=== PATIENT | female | born 1980 | race Caucasian/White ===

== ENCOUNTER 2020-01-07 09:01 | Emergency (ER) | payer OTHER, SELFPAY ==
[2020-01-07 09:09] VITALS: BP 125/74; PULSE 107; RESP 17; TEMP 36.2; O2SAT 100
[2020-01-07 09:35] LABS: Basophils Percent Auto 0.2 % (0.2-1.2); Eosinophils Absolute Auto 0.1 K/mm3 (0-0.3); Eosinophils Percent Auto 0.7 % (0-4.4); Hematocrit 39.7 % (37.0-47.0); Immature Granulocyte Absolute 0.03 K/mm3 (0.00-0.031); Immature Granulocyte Percent A 0.3 % (0-0.5); Lymphocytes Absolute Auto 1.37 K/mm3 (0.9-3.2); Lymphocytes Percent Auto 14.9 % (18.3-44.2); Mean Corpuscular HGB Conc 35.3 g/dl (32-36); Mean Corpuscular Hemoglobin 32.1 pg (26-34); Mean Corpuscular Volume 91.1 fl (80-100); Mean Platelet Volume 9.2 fl (7.4-10.4); Monocytes Absolute Auto 0.4 K/mm3 (0.1-0.6); Monocytes Percent Auto 4.3 % (2.6-8.5); Neutrophils Absolute Auto 7.3 K/mm3 (1.3-6.7); Neutrophils Percent Auto 79.6 % (45.5-73.1); Platelet Count Result 262 k/mm3 (150-375); Red Blood Count 4.36 M/mm3 (4.2-5.4); White Blood Count 9.2 K/mm3 (4.5-10.0)
--- NOTE | 2020-01-07 09:36 | ED.GIBLEED ---
HPI - GI Bleed General Chief complaint: GI Bleed Stated complaint: rectal bleeding, 4 months Time Seen by Provider: 01/07/20 09:11 Source: patient Mode of arrival: ambulatory Limitations: no limitations History of Present Illness HPI Narrative: This is a 39 year old female about 14 weeks that presents to the ER for rectal bleeding since last night. Reports she has had two bowel movement since last night and each time she sees bright red blood in the toilet. Reports history of hemorrhoids. Reports intermittent nausea and vomiting for which she takes Zofran. Denies fever, vaginal bleeding or abdominal pain. Related Data Allergies Allergy/AdvReac Type Severity Reaction Status Date / Time No Known Allergies Allergy Unknown Verified 07/27/12 15:43 NKFA Allergy Unknown Uncoded 09/03/02 13:20 Review of Systems Review of Systems: Narrative: CONSTITUTIONAL: Denies fever GASTROINTESTINAL: Reports nausea and vomiting. Denies abdominal pain, or diarrhea. GENITOURINARY: Denies dysuria or hematuria. All systems reviewed & are unremarkable except as noted in HPI and below PMFSH Surgical History Surgical History (Updated 01/07/20 @ 09:41 by Cherri Velásquez PA-C) History of appendectomy History of Social History Social History (Updated 01/07/20 @ 09:40 by Cherri Velásquez PA-C) Smoking status: Current every day smoker Gender identity (if verbalized by the patient): Female Exam Narrative: Exam Narrative: GENERAL: Well-appearing, well-nourished, and in no acute distress. HEAD: Normocephalic, atraumatic. EYES: EOMI. CHEST: Clear to auscultation. No respiratory distress. No wheezes rales or rhonchi HEART: Regular rate and rhythm. No murmur heard. Normal peripheral pulses. ABDOMEN: Soft, nontender, nondistended, normal active bowel sounds. EXTREMITIES: Normal range of motion. No edema. SKIN: Warm, dry, no rash. NEURO: No focal deficits. Alert and oriented x3. PSYCH: Normal mood and affect RECTAL: No external hemorrhoids or fissures noted. Hemoccult positive Course Consultations Consultation #1: Spoke with Dr. Nelson about patient and work-up. She is to continue Colace daily and MiraLAX as needed. Patient will be given steroid suppository and GI follow-up as well Date: 01/07/20 Time: 11:26 Vital Signs Vital signs: Vital Signs Temperature 97.1 F L 01/07/20 09:09 Pulse Rate 107 H 01/07/20 09:09 Respiratory Rate 17 01/07/20 09:09 Blood Pressure 125/74 01/07/20 09:09 Pulse Oximetry 100 01/07/20 09:09 Temperature 97.1 F L 01/07/20 09:09 Pulse Rate 88 01/07/20 10:28 Respiratory Rate 17 01/07/20 09:09 Blood Pressure 109/80 01/07/20 10:28 Pulse Oximetry 100 01/07/20 09:09 MDM - GI Bleed MDM Narrative Medical decision making narrative: Patient presents to the emergency department for rectal bleeding. Had 2 bowel movements and saw bright red blood in the toilet. Reports longstanding history of hemorrhoids. She is 14 weeks . Denies any current abdominal pain or vaginal bleeding. No external hemorrhoids or fissures noted on exam, she was Hemoccult positive. She is not orthostatic. Hemoglobin is 14. No concerning changes on metabolic panel. UA without evidence of infection. heart tones 156. Patient and family updated on case findings. Spoke with Dr. Nelson about patient and work-up. Patient is stable and felt appropriate for further outpatient evaluation. She will be given GI as needed for follow-up as well. She was given warnings to return to the ER Lab Data Attestation: I reviewed the patient's lab results. Result diagrams: 01/07/20 09:24 01/07/20 09:24 Labs: Lab Results 01/07/20 01/07/20 01/07/20 Range/Units 09:21 09:24 09:24 WBC 9.2 (4.5-10.0) K/mm3 RBC 4.36 (4.2-5.4) M/mm3 Hgb 14.0 (12.0-15.0) g/dL Hct 39.7 (37.0-47.0) % MCV 91.1 (80-100) fl MCH 32.1 (26-34) pg MCHC 35.3
[2020-01-07 09:40] LABS: Add Urine Microscopic? NO; Appearance Urine Clear (Clear); Bacteria Urine Trace /hpf; Bilirubin Urine Negative (Negative); Blood Urine Negative (Negative); Color Urine Yellow (Yellow); Glucose Urine UA Negative (Negative); Ketones Urine Negative (Negative); Leukocyte Esterase Ur Negative LEU/UL (Negative); Mucus Urine Few /lpf; Nitrate Urine Negative (Negative); Protein Urine Negative (Negative); RBC Urine 0-2 /hpf (0-2); Squamous Epithelial Cell Urine Many /hpf (Few); Transitional Epi Cells Urine Rare /hpf (None Seen); Urobilinogen Urine Negative mg/dL (<2.0); WBC Urine 0-3 /hpf
[2020-01-07 09:45] LABS: Lipase 47 U/L (23-300)
[2020-01-07 09:45] LABS: Partial Thromboplastin Time 30.7 SECONDS (22.3-36.8)
[2020-01-07 09:51] LABS: Alanine Aminotransferase 15 U/L (4-35); Albumin Level 4.1 g/dL (3.5-5.1); Alkaline Phosphatase 63 U/L (38-126); Anion Gap 8 mmol/L (8-16); Aspartate Amino Transferase 24 U/L (14-36); Bilirubin,Total 0.5 mg/dL (0.2-1.3); Blood Urea Nitrogen 4 mg/dL (7-17); Calcium 9.2 mg/dL (8.4-10.2); Carbon Dioxide 27 mmol/L (22-30); Chloride 101 mmol/L (98-107); Estimated CRCL calculation 125 ml/min; Estimated Glomerular Filt Rate > 60; Glucose 81 mg/dL (65-105); Potassium 3.4 mmol/L (3.4-5.0); Sodium 136 mmol/L (137-145)
[2020-01-07 10:25] VITALS: BP 106/69; PULSE 80
[2020-01-07 10:27] VITALS: BP 105/76; PULSE 82
[2020-01-07 10:28] VITALS: BP 109/80; PULSE 88
[2020-01-07 11:41] VITALS: BP 104/75; PULSE 83; RESP 20; O2SAT 100
== END 2020-01-07 11:43 | disposition home or self-care (01) ==
PROVIDERS: Physician Assistant; Emergency Provider Emergency Medicine; PCP Obstetrics & Gynecology
DX: O99.612 Diseases of the digestive system complicating pregnancy, second trimester (principal); K62.5 Hemorrhage of anus and rectum; O99.332 Smoking (tobacco) complicating pregnancy, second trimester; F17.200 Nicotine dependence, unspecified, uncomplicated; Z3A.14 14 weeks gestation of pregnancy
CPT/HCPCS: 36415; 80053; 81003; 83690; 85025; 85730; 86850; 86900; 86901; 99283

== ENCOUNTER 2020-03-24 13:50 | Outpatient (RCR) | payer OTHER, SELFPAY ==
--- NOTE | 2020-03-24 14:56 | PTOPEVAL ---
Thank you for referring Destiny Worley to [facility].? The patient is scheduled to be seen for therapy? _2___x/week for 12 visits. Please review, sign, date and return this plan of care MARIAN. I agree with and certify that the following plan of care is medically necessary. Referring Physician Date Admitting Provider: Attending Provider: Jerod Benítez MD Referring Provider: *PT Outpatient Evaluation Start: 03/24/20 14:02 Freq: Status: Active Protocol: Document 03/24/20 14:02 ALEX (Rec: 03/24/20 14:55 [email or web address]) Therapy Assessment Status Assessment Status Assessment Status Evaluation Evaluation Information Problem Diagnosis low back pain with Onset 03/24/20 Subjective Information Pt. does not recall the onset Query Text:As Reported By Patient/ of her pain. She reports she Family is currently in her 6th month of . She reports that she had hx of back pain prior to her , however it has intensified as of recently. she describes her pain going across the area of the lumbar spine. Pt. reports that she cannot stand for any significant time and states that her goal is to ease her back pain. Prior Level of Function Comments Additional Prior Level of Function Pt. reports that she works at [employer] a [employer] and has trouble standing long enough to perform her job. She reports that she is currently off work , but is hopeful to return MARIAN. Pain Assessment Pain Scale Pain Scale Used Numeric (1 - 10) Self Report Pain Assessment Lower Back Reported Pain Level 8 Pain Description Aching,Burning,Sharp Pain Frequency Continuous Pain Aggravating Factors Bending,Exercise/Activity, Prolonged Position,Sitting, Walking,Weight Bearing/ Standing Pain Score Pain Score 8: Self Report Interventions Used Interventions Used By Clinicians Exercise,Manual Therapy Techniques Cervical and Lumbar ROM Lumbar ROM Lumbar Flexion Active Mid Shell Query Text:Hands to: Lumbar Extension (0-40) 5 Query Text:Active in Degrees Lumbar Lateral Flexion
--- NOTE | 2020-03-25 06:57 | PTOPEVAL ---
Thank you for referring Destiny Worley to [facility].? The patient is scheduled to be seen for therapy? __2__x/week for 12 visits. Please review, sign, date and return this plan of care MARIAN. I agree with and certify that the following plan of care is medically necessary. Referring Physician Date Admitting Provider: Attending Provider: Jerod Benítez MD Referring Provider: *PT Outpatient Evaluation Start: 03/24/20 14:02 Freq: Status: Active Protocol: Document 03/24/20 14:02 ALEX (Rec: 03/24/20 14:55 [email or web address]) Therapy Assessment Status Assessment Status Assessment Status Evaluation Evaluation Information Problem Diagnosis low back pain with Onset 03/23/20 Subjective Information Pt. does not recall the onset Query Text:As Reported By Patient/ of her pain. She reports she Family is currently in her 6th month of . She reports that she had hx of back pain prior to her , however it has intensified as of recently. she describes her pain going across the area of the lumbar spine. Pt. reports that she cannot stand for any significant time and states that her goal is to ease her back pain. Prior Level of Function Comments Additional Prior Level of Function Pt. reports that she works at [employer] and has trouble standing long enough to perform her job. She reports that she is currently off work , but is hopeful to return MARIAN. Pain Assessment Pain Scale Pain Scale Used Numeric (1 - 10) Self Report Pain Assessment Lower Back Reported Pain Level 8 Pain Description Aching,Burning,Sharp Pain Frequency Continuous Pain Aggravating Factors Bending,Exercise/Activity, Prolonged Position,Sitting, Walking,Weight Bearing/ Standing Pain Score Pain Score 8: Self Report Interventions Used Interventions Used By Clinicians Exercise,Manual Therapy Techniques Cervical and Lumbar ROM Lumbar ROM Lumbar Flexion Active Mid Shell Query Text:Hands to: Lumbar Extension (0-40) 5 Query Text:Active in Degrees Lumbar Lateral Flexion
--- NOTE | 2020-06-15 17:13 | PCPTNOTE ---
Pt. attended 1 treatment session on 03/24/20. She has failed to return to the clinic and will be discharged from our care. Carlos Cunningham, MPT
== END 2020-03-24 14:50 | disposition home or self-care (01) ==
LOC: CHSPT 13:50
PROVIDERS: Visit Provider Obstetrics & Gynecology
DX: O26.899 Other specified pregnancy related conditions, unspecified trimester (principal); G89.29 Other chronic pain; M54.5 Low back pain
CPT/HCPCS: 97110; 97161

== ENCOUNTER 2020-05-05 08:13 | Outpatient (CLI) | payer OTHER, SELFPAY ==
[2020-05-05 09:51] LABS: Hematocrit 34.8 % (37.0-47.0); Hemoglobin 11.9 g/dL (12.0-15.0)
[2020-05-05 10:31] LABS: Glucose 1 Hour PP 50gm Dose 111 mg/dL
[2020-05-05 11:15] LABS: HIV 1/2 Ab P24 Ag 1.23
[2020-05-05 13:45] LABS: HIV 1/2 Ab P24 Ag Result Negative (Negative)
[2020-05-05 13:46] LABS: HIVc Retest 1 0.16; HIVc Retest 2 0.17
== END 2020-05-05 08:14 | disposition home or self-care (01) ==
PROVIDERS: Visit Provider Obstetrics & Gynecology
DX: Z34.92 Encounter for supervision of normal pregnancy, unspecified, second trimester (principal); Z3A.00 Weeks of gestation of pregnancy not specified
CPT/HCPCS: 36415; 82947; 85014; 85018; 86703; G0432

== ENCOUNTER 2020-05-25 08:31 | Observation (INO) | payer OTHER, SELFPAY ==
--- NOTE | 2020-05-25 08:29 | PC.NURSE ---
Spoke with Joana @ OB department - pt heading to OB via W/C
[2020-05-25 08:31] VITALS: RESP 16
[2020-05-25 09:00] VITALS: BP 92/60; PULSE 105; BMI 30.8
[2020-05-25 09:15] VITALS: BP 91/61; PULSE 93
--- NOTE | 2020-05-25 09:39 | OBADM ---
This patient, Destiny Worley, admitted to the OB room Labor/Delivery/Recovery 120 for observation. Patient/family oriented to hospital policies and general routines including ID bracelet, bed and alarms, visiting hours, pain management, procedures, bathroom and other care routines, personal items, smoking policy, room service/diet, and visiting hours. Patient/Family are encouraged to report perceived risks to care and to ask questions if they do not understand what they are told or what they should do.
--- NOTE | 2020-05-28 11:15 | PM.OBTRLD ---
OB - Triage/Final Diagnosis Visit Information Comments/Additional reasons for admission: I have assessed the risk for this patient, Destiny Worley, and determined that she would benefit from observation care. Final Diagnosis (1) Vaginal discharge during : Code(s): O26.899 - Other specified related conditions, unspecified trimester; N89.8 - Other specified noninflammatory disorders of vagina Status: Acute
== END 2020-05-25 09:29 | disposition home or self-care (01) ==
PROVIDERS: Admitting Provider Obstetrics & Gynecology; Visit Provider Obstetrics & Gynecology
DX: O26.893 Other specified pregnancy related conditions, third trimester (principal); N89.8 Other specified noninflammatory disorders of vagina; Z3A.34 34 weeks gestation of pregnancy
CPT/HCPCS: 84112; G0378; G0379

== ENCOUNTER 2020-06-11 08:23 | Outpatient (RCR) | payer OTHER, SELFPAY ==
[2020-05-21 09:31] VITALS: BP 91/57; PULSE 90
[2020-05-28 09:17] VITALS: BP 100/64; PULSE 105
[2020-06-04 09:10] VITALS: BP 110/68; PULSE 95
--- NOTE | ~2020-06-11 | US_ITS ---
EXAMINATION: US OB BPP wo non-stress EXAM DATE: 05/28/2020 09:37 INDICATION: Small for gestational age. 3rd trimester. TECHNIQUE: Pelvic obstetrical transabdominal sonogram was performed by a technologist. There are mu ltiple grayscale and Doppler images available for interpretation. Comparison is made to prior examina tion from 05/21/2020. FINDINGS: There is a single fetus identified in vertex presentation with a heart rate of 132 beats pe r minute. The placenta is located in the fundal position. There is no sonographic evidence of retrop lacental hemorrhage identified. BIOPHYSICAL PROFILE (performed by the technologist) breathing (30 sec sustained breathing in 30 minutes): 2 out of 2 movement (3 gross body movements in 30 minutes): 2 out of 2 tone (one episode of xrktsty-lyroqgquj-xufgswt limb movement): 2 out of 2 Amniotic fluid pocket (2 cm): 2 out of 2 Total score: 8 out of 8 IMPRESSION: 1. Single fetus with heart rate of 132 bpm. 2. Normal biophysical profile score of 8 out of 8. Reviewed, dictated and finalized at location A.
--- NOTE | ~2020-06-11 | US_ITS ---
EXAMINATION: US OB BPP wo non-stress DATE: 06/04/2020 09:09 CDT INDICATION: Small for gestational age. TECHNIQUE: Real-time transabdominal obstetric ultrasound. FINDINGS: 05/28/2020 There is a single living fetus in vertex presentation. The placenta is posterior without placenta pr evia. cardiac activity and movement is noted with a heart rate of 159 beats per minute. Biophysical profile: breathin of 2 movement: 2 of 2 tone: 2 of 2 Amniotic flud pocket: 2 of 2 Total score: 8 of 8 IMPRESSION: 1. Single living intrauterine in vertex presentation. 2: Total biophysical profile score of 8/8. Reviewed, dictated and finalized at location A.
--- NOTE | ~2020-06-11 | US_ITS ---
EXAMINATION: US OB follow up w BPP DATE: 06/11/2020 09:21 INDICATION: Small for gestational age. Estimated weight, amniotic fluid index and biophysical p rofile. TECHNIQUE: Real-time pelvic ultrasound was performed. The interpreting radiologist was not present fo r the study. COMPARISON: 06/04/2020 FINDINGS: There is a single living fetus in vertex presentation. The placenta is posterior fundal. heart rate is 138 beats per minute (bpm). Normal amniotic fluid index of 15.9 cm (5th%-95%: 8.1-24.8 cm at 34 weeks estimated gestational age) The following biometric data were obtained: BPD: 8.5 cm -> 34 weeks 2 days Head circumference: 30.9 cm -> 34 weeks 3 days Abdominal circumference: 28.6 cm -> 32 weeks 4 days Femur length: 6.2 cm -> 32 weeks 0 days These measurements are concordant. Head circumference to abdominal circumference ratio: 1.08 (normal range 0.96-1.11). Estimated weight: 2044 g (+/-) 307 g, 4lbs 8oz (+/-) 11oz Biophysical profile performed by the technologist: breathing (30 sec sustained breathing in 30 minutes): 2 out of 2 movement (3 gross body movements in 30 minutes: 2 out of 2 tone (one episode of ihpvsvg-rtsdhqggu-qpggvtj limb movement): 2 out of 2 Amniotic fluid pocket (2 cm): 2 out of 2 Total score: 8 out of 8 IMPRESSION: 1. Single living fetus in vertex presentation. 2. Normal amniotic fluid index of 15.9 cm. 3. Biophysical profile 8 out of 8. 4. Gestational age by ultrasound of 33 weeks 2 day(s) +/- 2 weeks and 2 days with ultrasound estimat ed date of delivery (MANISH) of 07/28/2020. Estimated weight is <3rd percentile by Hadlock criteria when 07/04/2020 is used as the MANISH. Please correlate with clinical information or earlier ultrasounds for most accurate MANISH. Reviewed, dictated and finalized at location A. IMPRESSION: 1. Single living fetus in vertex presentation. 2. Normal amniotic fluid index of 15.9 cm. 3. Biophysical profile 8 out of 8. 4. Gestational age by ultrasound of 33 weeks 2 day(s) +/- 2 weeks and 2 days w ith ultrasound estimated date of delivery (MANISH) of 07/28/2020. Estimated w eight is <3rd percentile by Hadlock criteria when 07/04/2020 is used as the MANISH. Please correlate with clinical information or earlier ultrasounds for most acc urate MANISH.
--- NOTE | ~2020-06-11 | US_ITS ---
EXAMINATION: US OB BPP wo non-stress DATE: 05/21/2020 09:28 INDICATION: Small for gestational age during third trimester TECHNIQUE: Real-time pelvic ultrasound was performed. The interpreting radiologist was not present fo r the study. COMPARISON: None. FINDINGS: There is a single living fetus in vertex presentation. The placenta is posterior and covers the inter nal cervical os. heart rate is 120 beats per minute (bpm). Biophysical profile performed by the technologist: breathing (30 sec sustained breathing in 30 minutes): 2 out of 2 movement (3 gross body movements in 30 minutes): 2 out of 2 tone (one episode of bidgllg-owftsotfa-dugqlpq limb movement): 2 out of 2 Amniotic fluid pocket (2 cm): 2 out of 2 Total score: 8 out of 8 IMPRESSION: 1. Single living fetus in vertex presentation. 2. Biophysical profile 8 out of 8. 3. Placenta previa. Reviewed, dictated and finalized at location A. ASSESSMENT
[2020-06-11 10:05] VITALS: BP 109/64
== END 2020-06-17 08:46 | disposition home or self-care (01) ==
LOC: ANHOBOP 08:23
PROVIDERS: Visit Provider Obstetrics & Gynecology
DX: O36.5930 Maternal care for other known or suspected poor fetal growth, third trimester, not applicable or unspecified (principal); Z3A.33 33 weeks gestation of pregnancy; Z3A.34 34 weeks gestation of pregnancy; Z3A.35 35 weeks gestation of pregnancy; Z3A.36 36 weeks gestation of pregnancy
CPT/HCPCS: 59025; 76816; 76819; J0131; J2274; J2590

== ENCOUNTER 2020-06-16 07:00 | Inpatient (IN) | payer OTHER, SELFPAY ==
--- NOTE | 2020-06-10 13:56 | PC.NURSE ---
VERIFIED WITH OR SCHEDULE AND PATIENT--REPEAT C/S WITH TUBAL LIGATION ON 06/29/20 AT 1200 PATIENT INSTRUCTED NOTHING TO EAT OR DRINK AFTER MIDNIGHT THE NIGHT BEFORE SURGERY AND TO BE IN OB 2 HOURS BEFORE SURGERY TIME PATIENT INSTRUCTED TO HAVE LABS DRAWN ON Monday06/27/20 PATIENT VERBALIZED HER UNDERSTANDING
[2020-06-16] VITALS (71 sets, daily range): BP systolic 87–119; BP diastolic 50–73; PULSE 57–102; RESP 14–20; TEMP 36.1–36.9; O2SAT 95–100; BMI 33.7
--- OUTSIDE RECORDS SUMMARY | 2020-06-16 07:05 | XMS_ITS | Encounter Summary ---
:1980 Author Reason for Visit return OB visit Assessment and Plan 1. Routine care Discussion Note: None recorded.Patient educational handouts: No information available. Plan of Care Reminders Provider Appointments None ? ? recorded. Lab None ? ? recorded. Referral None ? ? recorded. Procedures None ? ? recorded. Surgeries None ? ? recorded. Imaging None ? ? recorded. Medications Name Start Date ? ? Fluzone Quad [id number] (PF) 60 mcg (15 mcg x 4)/0.5 mL IM syringe ? ondansetron 4 mg disintegrating tablet ? DISSOLVE 1 TABLET IN MOUTH TWICE DAILY NEEDED Vitamin 27 mg iron-0.8 mg tablet ? TAKE 1 TABLET BY MOUTH ONCE DAILY Procto-Med HC 2.5 % topical cream perineal applicator ? APPLY CREAM RECTALLY TWICE DAILY Medications Administered None recorded. Vitals Height Weight Blood Pressure 5 ft 4 in 176 lbs 119/77 mm[Hg] Results Lab Results None recorded. Allergies Code Code System Name Reaction Severity Onset NKDA ? ? ? Problems Name Status Onset Date Source ? Active
--- OUTSIDE RECORDS SUMMARY | 2020-06-16 07:05 | XMS_ITS | Encounter Summary ---
:1980 Author Reason for Visit return OB visit Assessment and Plan 1. growth restriction Discussion Note: None recorded.Patient educational handouts: No information available. Plan of Care Reminders Provider Appointments Established Den kaela Benítez, Patient 10 06/22/2020 8:30AM Lab None recorded. ? ? Referral None recorded. ? ? Procedures None recorded. ? ? Surgeries None recorded. ? ? Imaging None recorded. ? ? Medications Name Start Date ? ? Classic 28 mg iron-800 mcg tablet ? TAKE 1 TABLET BY MOUTH ONCE DAILY Fluzone Quad 9479-9552 (PF) 60 mcg (15 mcg x 4)/0.5 mL IM syringe ? hydrocortisone 2.5 % topical cream ? ondansetron 4 mg disintegrating tablet ? DISSOLVE 1 TABLET IN MOUTH TWICE DAILY NEEDED Vitamin 27 mg iron-0.8 mg tablet ? TAKE 1 TABLET BY MOUTH ONCE DAILY Vitamins Plus Low Iron 27 mg iron-1 mg tablet ? Procto-Med HC 2.5 % topical cream perineal applicator ? INSERT CREAM RECTALLY TWICE DAILY Medications Administered None recorded. Vitals Height Weight Blood Pressure 5 ft 4 in 180 lbs 114/70 mm[Hg] Results Lab Results None recorded. Allergies Co
--- OUTSIDE RECORDS SUMMARY | 2020-06-16 07:05 | XMS_ITS ---
:1980 Author Care Team Providers Name Role Phone Theresa Albrecht Primary Care Provider Unavailable Allergies Code Code System Name Reaction Severity Status Onset NKDA ? Medications Name Status Start Date Stop Date ? ? amoxicillin 875 mg-potassium clavulanate 125 mg tablet Completed ? 11/05/2019 TAKE 1 TABLET BY MOUTH TWICE DAILY baclofen 10 mg tablet Completed ? 11/05/2019 TAKE 1 TABLET BY MOUTH THREE TIMES DAILY Colace 100 mg capsule Completed ? 03/23/2020 Take 1 capsule twice a day by oral route for 90 days. diazepam 10 mg tablet Completed ? 11/05/2019 TAKE 1 TABLET BY MOUTH 1 HOUR PRIOR TO PROCEDURE MAY REPEAT 1 TIME NEEDED FOR ANXIETY famotidine 20 mg tablet Completed ? 04/20/19 21 fluticasone propionate 50 mcg/actuation nasal spray,suspension C ompleted ? 11/05/2019 USE 1 TO 2 SPRAY(S) IN EACH NOSTRIL ONCE DAILY Fluzone Quad (PF) 60 mcg (15 Active ? Not available mcg x 4)/0.5 mL IM syringe hydrocodone 5 mg-acetaminophen 325 mg tablet Completed ? 11/05/2019 TAKE 1-2 TABLETS BY MOUTH EVERY 6 HOURS NEEDED FOR ACUTE TERRI N meloxicam 15 mg tablet Completed ? 0 TAKE 1 TABLET BY MOUTH EVERY DAY Miralax 17 gram/dose oral powder Completed ? 03/23/2020 Take 17 g every day by oral route. nicotine 14 mg/24 hr daily transdermal patch Completed ? 03/23/2020 APPLY 1 PATCH TOPICALLY ONCE DAILY ondansetron 4 mg disintegrating tablet Active ? Not available DISSOLVE 1 TABLET IN MOUTH TWICE DAILY NEEDED
--- OUTSIDE RECORDS SUMMARY | 2020-06-16 07:05 | XMS_ITS | Encounter Summary ---
:1980 Author Reason for Visit return OB visit Assessment and Plan 1. Advanced maternal age Discussion Note: None recorded.Patient educational handouts: No [...] TABLET BY MOUTH ONCE DAILY Fluzone Quad [id number] (PF) 60 mcg (15 mcg x 4)/0.5 [...] Pressure 5 ft 4 in 180 lbs 116/72 mm[Hg] Results Lab Results None recorded. Allergies
--- OUTSIDE RECORDS SUMMARY | 2020-06-16 07:05 | XMS_ITS | Encounter Summary ---
:1980 Author Reason for Visit return OB visit Assessment and Plan 1. Advanced maternal age ? streptococcus group B, cul ture, unspecified specimen Discussion Note: None recorded.Patient educational handouts: No information available. Plan of Care Reminders Provider Appointments Established Dago Benítez, Patient 10 06/22/2020 8:30AM Lab Streptococcus [facility] Group B, Culture, [facility] (Lab[facility] Unspecified Specimen Referral None recorded. ? ? Procedures None recorded. ? ? Surgeries None recorded. ? ? Imaging None recorded. ? ? Medications Name Start Date ? ? Classic 28 mg iron-800 mcg tablet ? TAKE 1 TABLET BY MOUTH ONCE DAILY Fluzone Quad [id number] (PF) 60 mcg (15 mcg x 4)/0.5 [...]
--- OUTSIDE RECORDS SUMMARY | 2020-06-16 07:05 | XMS_ITS ---
[...] 1 TABLET BY MOUTH THREE TIMES DAILY Classic 28 mg iron-800 mcg tablet Active ? Not available TAKE 1 TABLET BY MOUTH ONCE DAILY Colace 100 mg capsule Completed ? 03/23/2020 Take 1 capsule twice a day by oral route for 90 days. diazepam 10 mg tablet Completed ? 11/05/2019 TAKE 1 TABLET BY MOUTH 1 HOUR PRIOR TO PROCEDURE MAY REPEAT 1 TIME NEEDED FOR ANXIETY famotidine 20 mg tablet Active ? Not avai lable TAKE 1 TABLET BY MOUTH ONCE DAILY fluticasone propionate 50 mcg/actuation nasal spray,suspension C ompleted ? 11/05/2019 USE 1 TO 2 SPRAY(S) IN EACH NOSTRIL ONCE DAILY Fluzone Quad 9586-2576 (PF) 60 mcg (15 Active ? Not available mcg x 4)/0.5 mL IM syringe hydrocodone 5 mg-acetaminophen 325 mg tablet Completed ? 11/05/2019 TAKE 1-2 TABLETS BY MOUTH EVERY 6 HOURS NEEDED FOR ACUTE TERRI N hydrocortisone 2.5 % topical cream Active ? Not available meloxicam 15 mg tablet Completed ? 0 TAKE 1 TABLET BY MOUTH EVERY DAY Miralax 17 gram/dose oral powder Completed ? 03/23/2020 Take 17 g every day by oral route.
--- OUTSIDE RECORDS SUMMARY | 2020-06-16 07:05 | XMS_ITS | Encounter Summary ---
:1980 Author Reason for Visit return OB visit Assessment and Plan 1. Routine care ? glucose tolerance test, [facility], 1-hour - nonfasting OB ? HIV (1+2) Ab screen, serum ? hemoglobin + hematocrit, b lood 2. Chronic back pain ? physical therapy referral Discussion Note: None recorded.Patient educational handouts: No information available. Plan of Care Reminders Provider Appointments None recorded. ? ? Lab Glucose [facility] Tolerance Test, 03/23/2020 [facility] ( Lab) Gestational, 1-Hour ? HIV (1+2) Ab [facility] Screen, Serum 03/23/2020 [facility] ( Lab) ? Hemoglobin + [facility] Hematocrit, Blood 03/23/2020 [facility] (Lab) Referral Physical [place] [facility] Referral 03/23/2020 Hospital Procedures None recorded. ? ? Surgeries None recorded. ? ? Imaging None recorded. ? ? Medications Name Start Date ? ? Fluzone Quad [id number] (PF) 60 mcg (15 mcg x 4)/0.5 mL IM syringe ?
--- OUTSIDE RECORDS SUMMARY | 2020-06-16 07:05 | XMS_ITS | Encounter Summary ---
:1980 Author Reason for Visit return OB visit Assessment and Plan 1. Advanced maternal age ? section (SURG) 2. Female sterilization ? tubal ligation at time of (SURG) Discussion Note: None recorded.Patient educational handouts: No information available. Plan of Care Reminders Provider Appointments None ? ? recorded. Lab None ? ? recorded. Referral None ? ? recorded. Procedures None ? ? recorded. Surgeries [facility] Section (SURG) 06/29/2020 (Admitting) ? Tubal [facility] spital Ligation at Time of 06/29/2020 (Admitting) (SURG) Imaging None ? ? recorded. Medications Name Start Date ? ? Fluzone Quad [id number] (PF) 60 mcg (15 mcg x 4)/0.5 [...]
--- NOTE | 2020-06-16 07:18 | WPDANESEPPF ---
Anes - Initial Pre Proc Eval Procedure: Operation Date: 06/16/20 09:00 Proposed Procedures p Repeat Section With Bilateral Tubal Ligation With Fulguration - Jerod Benítez MD Date/Time: 06/16/20 07:18 Surgeon: Jerod Benítez MD Pre Op Diagnosis: Scheduled Patient Data Age: 39 Gender: F Height: Weight: Allergies Allergy/AdvReac Type Severity Reaction Status Date / Time No Known Allergies Allergy Unknown Verified 06/16/20 07:53 Home Medications Medication Instructions Recorded Confirmed Type PNV cmb#95-ferrous fumarate-FA 1 tablet PO DAILY 05/21/20 06/16/20 History [] ondansetron HCl [Zofran] 4 mg PO Q12H PRN 05/21/20 06/16/20 History Patient hx anesthesia problems: none Family hx anesthesia problems: none PMFSH Surgical History Surgical History History of appendectomy History of Family History Family History Mother Breast cancer Father Rectal cancer Grandparent Diabetes mellitus Social History Social History Smoking packs per day: 1 Smoking cigarettes per day: 20.0 Smoking status: Current every day smoker Tobacco type: cigarettes Substance use: never Gender identity (if verbalized by the patient): Female Spiritual care concerns: No Anes - Eval Final PreProcedure Day of Procedure 06/16/20 07:18 Patient weight: overweight Heart: regular rate and rhythm Lungs: decreased breath sounds Airway: Mallampati scale class II Neurological: alert and oriented Last oral intake: >/= 8 hours ASA classification: II Emergent: no Anesthetic plan: proceed Anesthesia type and monitoring: regional spinal and standard monitoring Informed Consent: The patient's anesthetic plan and its attendant risks and benefits were discussed with the patient/family/POA. Questions were solicited and answers provided to the satisfaction of the patient/family/POA.
--- NOTE | 2020-06-16 07:21 | PM.IMHP ---
H&P: HPI History of Present Illness Date/Time: 06/16/20 07:21 39-year-old 3 para 2001 female presents for repeat low transverse section. She has been followed for growth restriction with testing since 30/2 weeks and this is all been reassuring. However interval growth from her 34 week ultrasound to 37 week ultrasound revealed minimal to no growth therefore we will be proceeding with delivery today. Again testing has been reassuring and she has not shown evidence of oligohydramnios. We have discussed sterilization and she does desire to proceed with tubal ligation. Chief Complaint: Review of Systems Review of Systems: All systems reviewed & are unremarkable except as noted in HPI and below PMFSH Surgical History Surgical History History of appendectomy History of Family History Family History Mother Breast cancer Father Rectal cancer Grandparent Diabetes mellitus Social History Social History Smoking status: Current every day smoker Substance use: never Gender identity (if verbalized by the patient): Female Spiritual care concerns: No Meds Home Medications and Allergies Home Medications Medication Instructions Recorded Confirmed Type PNV cmb#95-ferrous fumarate-FA 1 tablet PO DAILY 05/21/20 06/11/20 History [] ondansetron HCl [Zofran] 4 mg PO Q12H PRN 05/21/20 06/11/20 History Allergies Allergy/AdvReac Type Severity Reaction Status Date / Time No Known Allergies Allergy Unknown Verified 06/10/20 13:36 Exam Const: General: cooperative and healthy appearing Resp: Auscultation: clear to auscultation bilaterally Cardio: Rate: regular rate Rhythm: regular rhythm GI: Auscultation: normal bowel sounds : External Female Exam: normal external appearance Bimanual exam- vagina & uterus: enlarged ( Fundal height 34cm) Manual OB Exam: Deferred manual OB exam Assessment and Plan Assessment and plan (1) 37 weeks gestation of : Code(s): Z3A.37 - 37 weeks gestation of Status: Acute (2) growth restriction: Status: Acute (3) Encounter for female sterilization procedure: Code(s): Z30.2 - Encounter for sterilization Status: Acute Additional Plan 1. proceed with low-transverse section with bilateral tubal ligation.
--- NOTE | 2020-06-16 07:25 | WPDHPUPDATE1 ---
History and Physical Update Update Date/Time: 06/16/20 07:25 History and Physical has been reviewed, including an updated exam of the patient. There are NO changes in the patient's condition. Risks, benefits, and alternatives have been discussed and questions answered. Patient agrees to proceed with procedure.
[2020-06-16] MEDS: LACTATED RINGERS 1,000 ML 125 ML IV CONT ×2 (07:40→18:09)
--- NOTE | 2020-06-16 07:47 | LDADM ---
This patient, Destiny Worley, was admitted to Labor/Delivery/Recovery 120 on 06/16/20 at 07:00. Plans for labor, pain management and were discussed with patient. Patient/family oriented to hospital policies and general routines including ID bracelet, bed and alarms, visiting hours, pain management, procedures, bathroom and other care routines, personal items, smoking policy, room service/diet and guest tray routines, security routines,call light, and visiting hours. Patient/Family are encouraged to report perceived risks to care and to ask questions if they do not understand what they are told or what they should do. See OBIX for further documentation.
[2020-06-16 07:55] LABS: Basophils Absolute Auto 0.1 K/mm3 (0.0-0.1); Basophils Percent Auto 0.4 % (0.2-1.2); Eosinophils Absolute Auto 0.1 K/mm3 (0-0.3); Eosinophils Percent Auto 0.5 % (0-4.4); Hematocrit 34.3 % (37.0-47.0); Hemoglobin 11.9 g/dL (12.0-15.0); Immature Granulocyte Absolute 0.08 K/mm3 (0.00-0.031); Immature Granulocyte Percent A 0.7 % (0-0.5); Lymphocytes Absolute Auto 1.58 K/mm3 (0.9-3.2); Lymphocytes Percent Auto 13.1 % (18.3-44.2); Mean Corpuscular HGB Conc 34.7 g/dl (32-36); Mean Corpuscular Volume 92.2 fl (80-100); Mean Platelet Volume 9.1 fl (7.4-10.4); Monocytes Absolute Auto 0.6 K/mm3 (0.1-0.6); Monocytes Percent Auto 4.8 % (2.6-8.5); Neutrophils Absolute Auto 9.7 K/mm3 (1.3-6.7); Neutrophils Percent Auto 80.5 % (45.5-73.1); Platelet Count Result 264 k/mm3 (150-375); Red Blood Count 3.72 M/mm3 (4.2-5.4); Red Cell Distribution Width 12.4 % (11.5-14.5); White Blood Count 12.1 K/mm3 (4.5-10.0)
[2020-06-16 08:53] LABS: Rubella IgG Antibody 2.4 IU/ML
[2020-06-16] MEDS: ceFAZolin 2 GM/D5W 50 ML 2 GM/50 ML BAG IVPB (09:27)
--- NOTE | 2020-06-16 10:15 | PM.OBPRVD ---
OB - Delivery Note Procedure Procedure: Procedures Operation Date: 06/16/20 09:00 <No data on this case meets the specified criteria> events: Previous and Placental Insufficiency Intrapartal events: None Induction method: none Route of delivery: (With bilateral tubal ligation) Specimen: Yes Quantitative Blood Loss (ml): 620 Anesthesia type: Spinal Disposition: PACU Narrative: Patient prepped and draped in usual manner for this procedure. Pfannenstiel incision was made and the old scar was removed. This incision was carried down to the fascia which was then extended bilaterally the length of the skin incision. Rectus muscle then from the fascia peritoneum was readily entered and the bladder flap was developed. Uterus scored with clear fluid vertex was delivered section naso-oropharynx rest of baby was delivered. There was a nuchal cord which was readily reduced at delivery. Placenta removed manually and the membranes and clots removed from the uterus as well. Uterine incision was closed using 0 Monocryl in a running interlocking manner with good approximation and hemostasis noted. Bilaterally the tubes were grasped Tessie clamp doubly ligated and the knot of tissue was removed. Upon placing the uterus back into the abdominal cavity both pedicles were noted to be intact and hemostatic. Uterine incision again inspected and noted be hemostatic and intact. Fascia was approximated using 0 Vicryl from left angle to midline in the right angle midline running manner with good approximation hemostasis noted. Subcutaneous tissue approximated using 0 plain suture and seth used to approximate the skin edges. Patient was then sent were covered room in stable condition. Baby Weeks of gestation at delivery: 37 gender: Female Weight (pounds): 5 Weight (ounces): 6 presentation: vertex cord vessel description: 3 Vessels score one minute: 8 score five minutes: 9
[2020-06-16] MEDS: LACTATED RINGERS 250 ML 999 ML IVPB (11:07)
[2020-06-16] MEDS: OXYTOCIN 30 UNITS/NS 500 ML 30 UNITS/500 ML BAG 125 UNITS IV CONT (11:07)
[2020-06-16] MEDS: KETOROLAC 30 MG/ML VIAL (*BKC) IV PUSH (12:40)
[2020-06-16 13:55] LABS: Rapid Plasma Reagin Non-Reactive (NonReactive)
[2020-06-16] MEDS: KCL 20 MEQ/D5/0.45% SOD CHL 1,000 ML 125 ML IV CONT (14:36)
[2020-06-16] MEDS: ONDANSETRON INJ 4 MG/2 ML VIAL IV PUSH ×2 (14:37→18:08)
[2020-06-16] MEDS: diphenhydrAMINE HCl INJ 50 MG/ML VIAL 12.5 MG IV PUSH (18:08)
--- NOTE | 2020-06-16 19:01 | OBPPTRN ---
1400 Patient transferred to post room #285 via stretcher. Support person present. Oriented to unit, room, information board, rooming in, admission packet and security measures. Patient verbalizes understanding.
[2020-06-16] MEDS: IBUPROFEN 600 MG TABLET PO (19:50)
[2020-06-16] MEDS: ACETAMINOPHEN 325 MG TABLET 650 MG PO (19:50)
[2020-06-17 03:11] VITALS: BP 111/72; PULSE 68; RESP 15; TEMP 36.8
[2020-06-17 05:48] VITALS: BP 108/60; PULSE 77; RESP 17; TEMP 36.9
[2020-06-17] MEDS: IBUPROFEN 600 MG TABLET PO ×3 (06:02→20:59)
[2020-06-17] MEDS: ACETAMINOPHEN 325 MG TABLET 650 MG PO (06:04)
[2020-06-17 06:55] VITALS: BP 90/60; PULSE 81; RESP 18; TEMP 36.2
[2020-06-17] MEDS: LANOLIN (LANSINOH) 7.5 GM CREAM 1 APPLIC TOPICAL (07:21)
[2020-06-17] MEDS: MULTIVIT/MIN/PREN/FOL AC/IRON TABLET 1 TAB PO (07:21)
[2020-06-17] MEDS: DOCUSATE SODIUM 100 MG CAPSULE PO ×2 (07:21→19:00)
[2020-06-17] MEDS: SIMETHICONE 80 MG TAB.CHEW PO (07:21)
--- NOTE | 2020-06-17 07:47 | WPDANLDPN2 ---
Anes-Prog Note L&D Date/Time: 06/17/20 07:47 Comfortable throughout: section Neuraxial method: spinal Epidural/Spinal procedure site: clean & non-tender Neuro status: Neuro function grossly intact. Cardiovascular status: normal Respiratory status: normal Airway patency: baseline Mental status: baseline Post-Op hydration status: normal Vital Signs: Last Vital Signs Temp 36.9 C 06/17/20 05:48 Pulse 77 06/17/20 05:48 Resp 17 06/17/20 05:48 BP 108/60 06/17/20 05:48 Pulse Ox 96 06/16/20 17:36 Pain score (VAS): 0 I/O: Intake & Output 06/16/20 06/16/20 06/17/20 15:59 23:59 07:59 Intake Total 50 120 1000 Output Total [phone] [facility] [phone] Post-procedural complaints: none Patient feedback: Patient satisfied with anesthetic care.
--- NOTE | 2020-06-17 07:48 | WPDANLDNPN2 ---
Anes-Prog Note L&D-Neuraxial Date/Time: 06/17/20 07:48 Neuraxial medications: intrathecal PF morphine Opiod-related complaints: none Patient feedback: Patient satisfied with post-operative pain management.
[2020-06-17] MEDS: diphenhydrAMINE HCl CAP 25 MG CAPSULE PO ×2 (07:52→21:01)
[2020-06-17 08:12] LABS: Basophils Percent Auto 0.2 % (0.2-1.2); Eosinophils Absolute Auto 0.1 K/mm3 (0-0.3); Eosinophils Percent Auto 0.5 % (0-4.4); Hematocrit 30.1 % (37.0-47.0); Hemoglobin 10.4 g/dL (12.0-15.0); Immature Granulocyte Absolute 0.07 K/mm3 (0.00-0.031); Immature Granulocyte Percent A 0.6 % (0-0.5); Lymphocytes Absolute Auto 0.65 K/mm3 (0.9-3.2); Lymphocytes Percent Auto 5.9 % (18.3-44.2); Mean Corpuscular HGB Conc 34.6 g/dl (32-36); Mean Corpuscular Hemoglobin 32.3 pg (26-34); Mean Corpuscular Volume 93.5 fl (80-100); Mean Platelet Volume 9.3 fl (7.4-10.4); Monocytes Absolute Auto 0.3 K/mm3 (0.1-0.6); Monocytes Percent Auto 2.7 % (2.6-8.5); Neutrophils Absolute Auto 9.9 K/mm3 (1.3-6.7); Neutrophils Percent Auto 90.1 % (45.5-73.1); Platelet Count Result 213 k/mm3 (150-375); Red Blood Count 3.22 M/mm3 (4.2-5.4); Red Cell Distribution Width 12.5 % (11.5-14.5)
--- NOTE | 2020-06-17 08:30 | PC.NURSE ---
Patient to [facility] with FOB at side to visit in NICU for 4-6 hours. Permission slip signed.
--- NOTE | 2020-06-17 08:38 | PM.OBDSVD ---
DS: Admitting Diagnosis Admitting Diagnosis Admitting Diagnosis: OB - DS: Summary OB Procedures : NST and Ultrasound OB Procedures Intrapartum: and Tubal ligation OB Procedures: : None Peripartum Data Procedures: Procedures Operation Date: 06/16/20 09:00 Actual Procedures Side Surgeon p Repeat Section With Bilateral Tubal Ligation With Fulguration Jerod Benítez MD Time Spent with Patient Time attestation: Total time spent providing and/or coordinating discharge services: DS: Data Data Completed and Pending Pending studies at discharge: Pending at discharge 06/16/20 10:37 Surgical [PTH] Routine Surgical [PTH] Routine Labs on day of discharge: Labs from last 24 hours 06/17/20 06/16/20 06/16/20 07:55 07:35 07:35 WBC 11.0 H RBC 3.22 L Hgb 10.4 L Hct 30.1 L MCV 93.5 MCH 32.3 MCHC 34.6 RDW 12.5 Plt Count 213 MPV 9.3 Immature Gran % (Auto) 0.6 H Neut % (Auto) 90.1 H Lymph % (Auto) 5.9 L Powell % (Auto) 2.7 Eos % (Auto) 0.5 Baso % (Auto) 0.2 Lymph # (Auto) 0.65 L Powell # (Auto) 0.3 Eos # (Auto) 0.1 Baso # (Auto) 0.0 Abs Immat Gran (auto) 0.07 H Absolute Neuts (auto) 9.9 H Absolute Nucleated RBC 0.0 Nucleated RBC % 0.0 RPR Rubella IgG Antibody 2.4 L Blood Type A Positive Antibody Screen Negative 06/16/20 07:35 WBC RBC Hgb Hct MCV MCH MCHC RDW Plt Count MPV Immature Gran % (Auto) Neut % (Auto) Lymph % (Auto) Powell % (Auto) Eos % (Auto) Baso % (Auto) Lymph # (Auto) Powell # (Auto) Eos # (Auto) Baso # (Auto) Abs Immat Gran (auto) Absolute Neuts (auto) Absolute Nucleated RBC Nucleated RBC % RPR Non-reactive Rubella IgG Antibody Blood Type Antibody Screen Discharge Plan Discharge Discharging Clinician: Jerod Benítez Patient Disposition: Home, Self-Care Activity: as tolerated Diet: as tolerated Wound Care Instructions: incision open to air Discharge Instructions: office monday for staple removal Patient Instructions: Antibiotic Form, How to Stop Smoking (GEN) Stand Alone Forms: General Discharge Information Follow-up/Referrals: Jerod Benítez MD [Physician] - 1 Week Discharge Medications: New hydrocodone-acetaminophen 5-325 mg Tablet 1 tablet PO Q6H Qty: 30 RF: 0 ibuprofen 600 mg Tablet 600 mg PO Q6H PRN (Reason: Cramping) Qty: 30 RF: 0 Continued PNV cmb#95-ferrous fumarate-FA [] 28 mg iron- 800 mcg Tablet 1 tablet PO DAILY RF: 0 Discontinued ondansetron HCl [Zofran] 4 mg Tablet 4 mg PO Q12H PRN (Reason: Nausea) RF: 0 Date of admission: 06/16/20 07:00 Primary Care Provider: PHYSICIAN,INSURANCE CLAIMS CLERK Admitting Provider: Jerod Benítez Attending physician on admission: Jerod Benítez Condition: Stable
--- NOTE | 2020-06-17 14:30 | PC.NURSE ---
Pt. returned from [facility] at 1430.
[2020-06-17] MEDS: HYDROcodone/acetaminophen (*CRX) 5-325 MG TABLET 1 TAB PO ×2 (14:37→20:58)
[2020-06-17 15:00] VITALS: BP 98/64; PULSE 84; RESP 18; TEMP 36.8
[2020-06-17 18:40] VITALS: O2SAT 99
[2020-06-17 18:45] VITALS: BP 102/50; PULSE 78; RESP 16; TEMP 36.9; O2SAT 99
[2020-06-18] MEDS: HYDROcodone/acetaminophen (*CRX) 10-325 MG TABLET 1 TAB PO ×2 (06:25→10:36)
[2020-06-18] MEDS: IBUPROFEN 600 MG TABLET PO ×2 (06:30→10:37)
[2020-06-18] MEDS: diphenhydrAMINE HCl CAP 25 MG CAPSULE PO (06:34)
[2020-06-18 08:00] VITALS: BP 103/67; PULSE 95; RESP 18; TEMP 36.6
[2020-06-18] MEDS: DOCUSATE SODIUM 100 MG CAPSULE PO (09:08)
[2020-06-18] MEDS: MULTIVIT/MIN/PREN/FOL AC/IRON TABLET 1 TAB PO (09:08)
--- NOTE | 2020-06-18 10:19 | PC.NURSE ---
Self care discharge instructions given to pt. including follow up visit date and time. Pt. states that she will not be returning for follow up visit due to seeing Dr. Benítez on Monday, June 22 and being in [facility]. Staple removal sent with pt. for . fabián. FOB at side. Pt. pleasant and cooperative. No questions or concerns voiced.
--- NOTE | 2020-06-22 10:59 | PM.OBDSVD ---
DS: Admitting Diagnosis Admitting Diagnosis Admitting Diagnosis: OB - DS: Summary OB Procedures : None OB Procedures Intrapartum: and Tubal ligation OB Procedures: : None Peripartum Data Procedures: Procedures Operation Date: 06/16/20 09:00 Actual Procedures Side Surgeon p Repeat Section With Bilateral Tubal Ligation With Fulguration Jerod Benítez MD Time Spent with Patient Time attestation: Total time spent providing and/or coordinating discharge services: DS: Data Data Completed and Pending Completed studies during hospitalization: Pending at discharge 06/16/20 10:37 Surgical [PTH] Routine Surgical [PTH] Routine Discharge Plan Discharge Attending physician on discharge: Jerod Benítez Consulting providers: Gael Copeland Discharging Clinician: Jerod Benítez Patient Disposition: Home, Self-Care Activity: as tolerated Diet: as tolerated Wound Care Instructions: incision open to air Discharge Instructions: office monday for staple removal Education: Mom and Baby Guide Given to: Mother Follow-Up: Call your delivering provider's office for an appointment to be seen in: To see Dr. Benítez on Monday, June 22 for staple removal What to expect at your follow-up visit: Pt. states that she will not be returning for follow up visit due to seeing Dr. Benítez on MondayJune 22 and at [facility]. Call [phone] if you are unable to keep your appointment time. BREAST CARE: * Wear a snug supportive bra. * For engorgement discomfort: Breast Feeding: * Apply warm moist washcloths * Express milk as needed to relieve engorgement * Wear loose clothing For sore nipples: * Identify correct latch-on * Apply warm moist washcloths before and after nursing * Air dry nipples after nursing * May apply Lansinoh cream to nipples ABDOMINAL INCISION: (if applicable) * Allow incision to air dry * Do NOT use lotions for powders on your incision * When showering, allow soap and water to run over the incision, but do not wash incision EPISIOTOMY/PERINEAL CARE: * Until bleeding stops, use your anurag bottle after urinating * Change your pad frequently throughout the day * No tub baths until seen by your physician - You may shower ACTIVITY: * Rest as much as possible. * Do not exercise or lift anything heavier than your baby (such as laundry or other children.) * Avoid stairs or driving as much as possible. * Do not put anything into the vagina. No douching, tampons, or sexual activity until seen by physician. NOTIFY PHYSICIAN IF YOU HAVE ANY QUESTIONS OR IF ANY OF THE FOLLOWING SYMPTOMS OCCUR: * If your incision becomes red, swollen, or more painful than what you have experienced in the hospital. * If your vaginal bleeding becomes foul smelling. * If your vaginal bleeding becomes more heavy than a period or if your bleeding changes from pink to bright red. However, you may pass an occasional walnut-sized clot once or twice for the first week . * If you experience a sharp, shooting pain in you calves. * If you discover a hard, reddened area on your breast or if you experience flu-like symptoms. DIET: * Eat regular, well-balanced meals. * Drink plenty of fluids daily. If , drink to thirst. Patient Instructions: Antibiotic Form, How to Stop Smoking (GEN) Stand Alone Forms: General Discharge Information Follow-up/Referrals: Jerod Benítez MD [Physician] - 1 Week Discharge Medications: New hydrocodone-acetaminophen 5-325 mg Tablet 1 tablet PO Q6H Qty: 30 RF: 0 ibuprofen 600 mg Tablet 600 mg PO Q6H PRN (Reason: Cramping) Qty: 30 RF: 0 Continued PNV cmb#95-ferrous fumarate-FA [] 28 mg iron- 800 mcg Tablet 1 tablet PO DAILY RF: 0 Discontinued ond
== END 2020-06-18 11:00 | disposition home or self-care (01) | DRG 540 ==
LOC: ANHLDR 07:03 → ANHOB2 14:21
PROVIDERS: Admitting Provider Obstetrics & Gynecology; Visit Provider Obstetrics & Gynecology
PROC: 10D00Z1 Extraction of Products of Conception, Low, Open Approach (ICD-10-PCS; CPT 59514; principal; 2020-06-16 09:00)
DX: O34.211 Maternal care for low transverse scar from previous cesarean delivery (principal); Z30.2 Encounter for sterilization; O36.5130 Maternal care for known or suspected placental insufficiency, third trimester, not applicable or unspecified; O69.81X0 Labor and delivery complicated by cord around neck, without compression, not applicable or unspecified; O99.334 Smoking (tobacco) complicating childbirth; F17.210 Nicotine dependence, cigarettes, uncomplicated; Z3A.37 37 weeks gestation of pregnancy; Z37.0 Single live birth
CPT/HCPCS: 36415; 85025; 86592; 86762; 86850; 86900; 86901; 88302; 88307; A9270; J0690; J1200; J1885; J2370; J2405; J2590; J3480; J7120

== ENCOUNTER 2020-08-27 17:35 | Outpatient (CLI) | payer OTHER, SELFPAY ==
--- NOTE | ~2020-08-27 | XR_ITS ---
XR lumbar spine 2-3V DATE: 08/27/2020 18:06 INDICATION: Chronic back pain and left hip pain TECHNIQUE: AP, lateral, coned lateral lumbosacral views COMPARISON: None FINDINGS: There are 6 functional lumbar vertebrae. Normal alignment of the lumbar spine. No fracture or bone destruction is evident. The included lower thoracic and lumbar pedicles are intact. There is minimal degenerative spurring of lumbar spine. The sacroiliac joints are intact. IMPRESSION: Mild degenerative spurring of the lumbar spine Reviewed, dictated and finalized at location A.
--- NOTE | ~2020-08-27 | XR_ITS ---
XR hip LT min 2V DATE: 08/27/2020 18:05 INDICATION: Chronic low back and left hip pain, worse after a fall 3 weeks ago TECHNIQUE: AP and lateral views of left hip COMPARISON: None FINDINGS: Mild left hip osteoarthritic arthritis. No fracture or dislocation, avascular necrosis or b one destruction. IMPRESSION: Mild left hip osteoarthritic arthritis Reviewed, dictated and finalized at location A.
== END 2020-08-27 17:36 | disposition home or self-care (01) ==
LOC: CHSIMG 17:38
PROVIDERS: PCP Physician Assistant; Visit Provider Physician Assistant
DX: M25.552 Pain in left hip (principal); M16.12 Unilateral primary osteoarthritis, left hip
CPT/HCPCS: 72100; 73502

== ENCOUNTER 2021-10-18 16:56 | Emergency (ER) | payer OTHER, SELFPAY ==
[2021-10-18 17:00] VITALS: BP 139/93; PULSE 96; RESP 16; TEMP 36.4; O2SAT 100
[2021-10-18] MEDS: DACRIOSE EYE IRRIGATION 118 ML BOTTLE EACH EYE (18:15)
[2021-10-18] MEDS: TETRACAINE HCL 0.5% OPHTH SOLN 4 ML BTL 1 DROP EACH EYE (18:16)
[2021-10-18] MEDS: FLUORESCEIN SOD 1 MG/STRIP EACH EYE (18:16)
[2021-10-18] MEDS: ERYTHROMYCIN OPHTH OINTMENT 3.5 GM TUBE 1 APPLIC EACH EYE (18:16)
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
[2021-10-18 18:24] VITALS: BP 134/84; PULSE 79; RESP 16; TEMP 36.6; O2SAT 99
== END 2021-10-18 18:26 | disposition home or self-care (01) ==
PROVIDERS: Emergency Provider Emergency Medicine; PCP Physician Assistant
DX: H10.9 Unspecified conjunctivitis (principal)
CPT/HCPCS: 99283; A9270

== ENCOUNTER 2022-02-07 15:07 | Outpatient (CLI) | payer OTHER, SELFPAY ==
[2022-02-07 15:49] LABS: SARS-CoV-2 Ag Negative (Negative)
[2022-02-07 16:20] LABS: Influenza Control Valid (Valid)
== END 2022-02-07 15:08 | disposition home or self-care (01) ==
PROVIDERS: Family Medicine; PCP Physician Assistant; Visit Provider Family Medicine
DX: R68.89 Other general symptoms and signs (principal); Z20.822 Contact with and (suspected) exposure to COVID-19
CPT/HCPCS: 87426; 87804; C9803

== ENCOUNTER 2022-02-10 14:14 | Emergency (ER) | payer OTHER, SELFPAY ==
--- NOTE | ~2022-02-10 | CT_ITS ---
EXAMINATION: CT abdomen pelvis wo con DATE: 02/10/2022 15:03 INDICATION: Abdominal pain TECHNIQUE: Computed tomography (CT) of the abdomen and pelvis was performed without intravenous contr ast. The dose-length product was 379.78 mGy-cm. Automated exposure control and iterative reconstructi on technique were employed. COMPARISON: None. FINDINGS: Lung bases are unremarkable. Heart size is normal. There is a possible mass in the lateral aspect of the left breast. Small hiatal hernia. No significant pleural or pericardial effusion. There are small nonobstructing b ilateral renal stones measuring 2 mm or less. No ureteral stones or hydronephrosis. The liver, spleen, pancreas, adrenal glands are unremarkable. Gallbladder is present. There is a smal l fat-containing umbilical hernia. Nonobstructive bowel gas pattern. No significant vascular abnormal ity. No lymphadenopathy. Fat-containing umbilical hernia. No acute osseous abnormality. Nonobstructiv e bowel pattern. IMPRESSION: 1. No acute abdominal abnormality. 2: Nonobstructing bilateral nephrolithiasis. 3: Small hiatal hernia. Small fat-containing umbilical hernia. Reviewed, dictated and finalized at location A. ANTY COORDINATOR
[2022-02-10 14:47] VITALS: BP 130/91; PULSE 93; TEMP 36.6; O2SAT 100
--- NOTE | 2022-02-10 15:14 | ED.ABDPAIN ---
HPI - Abdominal Pain General Chief Complaint: Abdominal Pain Stated Complaint: flu A pain lower right quadrent Time Seen by Provider: 02/10/22 14:35 Source: patient Mode of arrival: ambulatory Limitations: no limitations History of Present Illness HPI narrative: this is a 41-year-old female who was recently diagnosed with influenza currently afebrile continues to have a cough and has cause some left lower quadrant pain with coughing, and radiating into her groin hip. The patient is concerned that she may have an inguinal hernia that has developed. Otherwise no nausea vomiting no flank pain no dysuria. MD elicited complaint: abdominal pain Onset (ago): day(s) Pain Consistency: other ( with cough) Related Data Allergies Allergy/AdvReac Type Severity Reaction Status Date / Time No Known Allergies Allergy Unknown Verified 02/10/22 14:54 Review of Systems Review of Systems: All systems reviewed & are unremarkable except as noted in HPI and below PMFSH Past Medical History Medical History Conjunctivitis Surgical History Surgical History History of appendectomy History of Family History Family History Mother Breast cancer Father Rectal cancer Grandparent Diabetes mellitus Social History Social History Smoking packs per day: 1 Smoking cigarettes per day: 20.0 Smoking status: Current every day smoker Tobacco type: cigarettes Substance use: never Gender identity (if verbalized by the patient): Female Spiritual care concerns: No Exam Const: General: healthy appearing Nutritional Appearance: well nourished Orientation/consciousness: patient oriented x3 Limitations: no limitations HENMT: Head: normal to inspection Face and sinus: normal facial exam Mouth: Yes Normal oral and palatal mucosa present Eyes: Conjunctivae: conjunctivae normal Pupils: Equal, round and reactive pupils present EOM: EOMs intact bilaterally Neck: Neck: normal visual inspection Chest: Chest palpation & inspection: normal inspection of the chest Resp: Effort & Inspection: normal respiratory effort Cardio: Rate: regular rate Rhythm: regular rhythm GI: GI Palp: Yes Soft to palpation : General: Yes bladder normal to palpation Urinary Catheter: Urinary Catheter: patent and draining Skin: General skin exam: normal color Rashes: no rashes Wounds: no wounds Neuro: General: patient oriented x3 Cranial nerves: Yes Nystagmus not present Extrem: General: normal to inspection Psych: Mental Status: mental status grossly normal Course Course Emergency Course: CT scan reviewed with patient which shows no inguinal hernia. Vital Signs Vital signs: Vital Signs Temperature 36.6 C 02/10/22 14:47 Pulse Rate 93 02/10/22 14:47 Blood Pressure 130/91 H 02/10/22 14:47 Pulse Oximetry 100 02/10/22 14:47 Oxygen Delivery Room Air 02/10/22 14:47 Temperature 36.6 C 02/10/22 14:47 Pulse Rate 93 02/10/22 14:47 Blood Pressure 130/91 H 02/10/22 14:47 Pulse Oximetry 100 02/10/22 14:47 Oxygen Delivery Room Air 02/10/22 14:47 MDM - Abdominal Pain Imaging Data Radiologist's impression: ITS Impressions Abdomen/Pelvis CT 02/10/22 15:04 IMPRESSION: 1. No acute abdominal abnormality. 2: Nonobstructing bilateral nephrolithiasis. 3: Small hiatal hernia. Small fat-containing umbilical hernia. Critical Care Time Critical Care Time Critical Care Time: No Discharge Plan Discharge Clinical Impression: Abdominal pain Qualifiers: Abdominal location: left lower quadrant Qualified Code(s): R10.32 - Left lower quadrant pain Cough Qualifiers: Cough type: acute Qualified Code(s): R05.1 - Acute cough Patient Disposition: Home, Self-Care
[2022-02-10 15:29] VITALS: BP 131/87; PULSE 85; RESP 20; TEMP 36.6; O2SAT 98
== END 2022-02-10 15:31 | disposition home or self-care (01) ==
PROVIDERS: Emergency Provider Emergency Medicine; PCP Physician Assistant
DX: R10.32 Left lower quadrant pain (principal); R05.1 Acute cough
CPT/HCPCS: 74176; 99284

== ENCOUNTER 2022-06-21 16:24 | Outpatient (CLI) | payer OTHER, SELFPAY ==
--- NOTE | ~2022-06-21 | XR_ITS ---
EXAMINATION: XR ankle RT min 3V DATE: 06/21/2022 16:46 INDICATION: Right ankle injury and swelling. TECHNIQUE: 5 views of right ankle were obtained. COMPARISON: Right ankle radiographs 12/18/2012 FINDINGS: Bone alignment is normal. No fracture. Joint spaces are normal. There is enthesophytes at t he posterior and plantar aspects of calcaneal tuberosity. IMPRESSION: 1. No fracture. Reviewed, dictated and finalized at location A. IMPRESSION: 1. No fracture.
== END 2022-06-21 16:25 | disposition home or self-care (01) ==
LOC: CHSIMG 16:25
PROVIDERS: PCP Registered Nurse; Visit Provider Registered Nurse
DX: M25.571 Pain in right ankle and joints of right foot (principal)
CPT/HCPCS: 73610

== ENCOUNTER 2022-08-15 19:36 | Emergency (ER) | payer OTHER, SELFPAY ==
[2022-08-15 19:39] VITALS: BP 134/87; PULSE 100; RESP 18; TEMP 36.9; O2SAT 97
[2022-08-15] MEDS: LIDO 1%/EPINEPHRINE 1:100,000 20 ML VIAL 10 ML INFILTRATE (19:46)
--- NOTE | 2022-08-15 21:13 | ED.DENTAL ---
HPI - Dental/Oral General Chief complaint: Dental/Oral Stated complaint: Tooth Infection Source: patient Mode of arrival: ambulatory Limitations: no limitations History of Present Illness HPI Narrative: 41-year-old white female presents with dental pain in the right lower 2nd molar. She reports this began about 5 days ago, she was started on amoxicillin 2 days ago, but it has gotten more swollen. It opened up this morning a little bit drain some pus, but then sealed back up and got swollen again. She presents asking if we can numb it up and open it so that it drains the rest of the way. She denies fever or chills, sinus drainage, sore throat, coughing, shortness of breath, chest pain, palpitations, near-syncope or syncope. She denies any abdominal pain, nausea vomiting, diarrhea or constipation, dysuria urgency or frequency. No history of diabetes Related Data Allergies Allergy/AdvReac Type Severity Reaction Status Date / Time No Known Allergies Allergy Unknown Verified 02/10/22 14:54 Review of Systems Review of Systems: All systems reviewed & are unremarkable except as noted in HPI and below ( HPI) PMFSH Past Medical History Medical History Conjunctivitis Surgical History Surgical History History of appendectomy History of Family History Family History Mother Breast cancer Father Rectal cancer Grandparent Diabetes mellitus Social History Social History Smoking packs per day: 1 Smoking cigarettes per day: 20.0 Smoking status: Current every day smoker Tobacco type: cigarettes Substance use: never Gender identity (if verbalized by the patient): Female Spiritual care concerns: No Exam Narrative: pleasant, well-appearing child, appropriately interactive, no acute distress Const: General: healthy appearing Nutritional Appearance: well nourished Orientation/consciousness: patient oriented x3 Limitations: no limitations HENMT: Head: normal to inspection Ears: hearing grossly normal bilaterally and external ears normal Face/Nose/Sinus: Normal external nose present, Normal nares present, Normal nasal mucous membranes and turbinates present and normal facial exam Mouth: Yes Normal oral and palatal mucosa present, Yes lip normal, Yes tongue normal and Yes moist mucous membranes Throat: posterior oropharynx normal and tonsils normal ( erythematous) Other: patient's upper dentition is edentulous Patient has poor dentition of her lower teeth, there is swelling of the gum at the root of the 2nd molar on the right side which is fluctuant there is also some swelling noticeable over the mandible overlying the 2nd molar. There is no swelling in the submental and submandibular area. Eyes: General: appearance normal, both eyes and all related structures Alignment and Position: alignment normal and position normal Periorbital: periorbital findings normal Eyelids: eyelids normal Conjunctivae: conjunctivae normal Sclera: sclerae normal Cornea: corneas normal Pupils: Equal, round and reactive pupils present EOM: EOMs intact bilaterally Neck: Neck: normal visual inspection, full ROM and no lymphadenopathy Chest: Chest palpation & inspection: normal inspection of the chest Resp: Effort & Inspection: normal respiratory effort, able to speak in complete sentences, no respiratory distress and no use of accessory muscles Skin: General skin exam: normal color, no rashes or lesions noted, elasticity normal and turgor normal Neuro: General: patient oriented x3, gait normal, tone normal and moves all extremities Cranial nerves: Yes CN's II-XII intact bilaterally, Yes Equal, round and reactive pupils present and Yes Bilaterally intact EOM present Speech: normal speech Mot
[2022-08-15] MEDS: KETOROLAC 30 MG/ML VIAL (*BKC) IM (21:20)
[2022-08-15] MEDS: HYDROcodone/acetaminophen (*CRX) 5-325 MG TABLET 2 TAB PO (21:21)
[2022-08-15] MEDS: AMOXICILLIN/CLAVULANATE K 875-125 MG TAB 1 TABLET PO (21:21)
[2022-08-15 21:34] VITALS: BP 140/84; PULSE 78; RESP 18; TEMP 36.7; O2SAT 97
== END 2022-08-15 21:37 | disposition home or self-care (01) ==
PROVIDERS: Emergency Provider Emergency Medicine; PCP Physician Assistant
DX: K04.7 Periapical abscess without sinus (principal); F17.210 Nicotine dependence, cigarettes, uncomplicated
CPT/HCPCS: 96372; 99283; A9270; J1885

== ENCOUNTER 2023-05-30 12:24 | Outpatient (CLI) | payer OTHER, SELFPAY ==
--- NOTE | ~2023-05-30 | MM_ITS ---
EXAMINATION: MM screening ayleen BI w demar HISTORY: Screening TECHNIQUE: Craniocaudal and mediolateral oblique 3-D tomosynthesis images were obtained and synthetic 2-D images were generated. CAD analysis was submitted and interpreted. COMPARISON: No prior mammogram is available for comparison at this institution. BREAST PARENCHYMAL COMPOSITION: Dense: The breasts are heterogeneously dense, which may obscure small masses FINDINGS: There is a focal asymmetry in the medial aspect of the right breast on CC view. The left br east is stable without evidence for malignancy. IMPRESSION: 1. Focal right breast asymmetry medially on CC view. 2. Additional mammographic views and possible breast ultrasound are recommended. BI-RADS Category 0: Incomplete: Needs additional imaging evaluation. Reviewed, dictated and finalized at location A. IMPRESSION: 1. Focal right breast asymmetry medially on CC view. 2. Additional mammographic views and possible breast ultrasound are recommended . BI-RADS Category 0: Incomplete: Needs additional imaging evaluation.
== END 2023-05-30 12:25 | disposition home or self-care (01) ==
LOC: CHSIMG 12:25
PROVIDERS: PCP Physician Assistant; Visit Provider Physician Assistant
DX: Z12.31 Encounter for screening mammogram for malignant neoplasm of breast (principal); R92.8 Other abnormal and inconclusive findings on diagnostic imaging of breast
CPT/HCPCS: 77063; 77067

== ENCOUNTER 2023-06-07 13:31 | Outpatient (CLI) | payer OTHER, SELFPAY ==
--- NOTE | ~2023-06-07 | US_ITS ---
EXAMINATION: US pelvic complete w TV DATE: 06/07/2023 14:03 INDICATION: Dyspareunia Comparison:No prior studies for comparison. TECHNIQUE: Multiple transabdominal and endovaginal sonographic images of the pelvis performed. FINDINGS: The uterus measures 9.2 x 3.4 x 3.8 cm. The endometrial complex measures 11 mm. The ovaries are not visualized due to bowel gas. There is no free fluid in the pelvis. There are no abnormal masses seen on either side. IMPRESSION: 1. Unremarkable pelvic ultrasound. Reviewed, dictated and finalized at location B.
== END 2023-06-07 13:32 | disposition home or self-care (01) ==
LOC: CHSIMG 13:32
PROVIDERS: PCP Registered Nurse; Visit Provider Registered Nurse
DX: N94.10 Unspecified dyspareunia (principal)
CPT/HCPCS: 76830; 76856

== ENCOUNTER 2023-06-15 09:17 | Outpatient (CLI) | payer OTHER, SELFPAY ==
--- NOTE | ~2023-06-15 | MMUS_ITS ---
EXAMINATION: MM diagnostic ayleen RT w demar, US breast RT limited HISTORY: Follow-up right breast asymmetry TECHNIQUE: Additional 3-D tomosynthesis images of the right breast were performed and synthetic 2-D i mages were generated. CAD analysis was submitted and interpreted. High resolution Limited right breas t ultrasound was performed. COMPARISON: 05/30/2023 BREAST PARENCHYMAL COMPOSITION: Not dense: There are scattered areas of fibroglandular density. FINDINGS: MAMMOGRAPHIC FINDINGS: There is a persistent focal asymmetry medially in the right breast on CC view, not definitely seen on medial lateral or spot MLO views. ULTRASOUND: Limited right breast ultrasound: At 1:00, 4 cm from the nipple there is a complicated 5 mm cyst likel y corresponding to the mammographic abnormality. IMPRESSION: 1. Probable benign complicated cyst of the right breast at 1:00, 4 cm from the nipple likely correspo nds to mammographic abnormality. 2. Recommend 6 month follow-up diagnostic right mammogram and ultrasound recommended. BI-RADS category 3, probably benign findings. Reviewed, dictated and finalized at location A. IMPRESSION: 1. Probable benign complicated cyst of the right breast at 1:00, 4 cm from the nipple likely corresponds to mammographic abnormality. 2. Recommend 6 month follow-up diagnostic right mammogram and ultrasound recomm ended. BI-RADS category 3, probably benign findings.
== END 2023-06-15 09:18 | disposition home or self-care (01) ==
LOC: CHSIMG 09:19
PROVIDERS: PCP Physician Assistant; Visit Provider Physician Assistant
DX: R92.8 Other abnormal and inconclusive findings on diagnostic imaging of breast (principal)
CPT/HCPCS: 76642; 77061; 77065; G0279

== ENCOUNTER 2023-06-23 15:54 | Emergency (ER) | payer OTHER, SELFPAY ==
--- NOTE | ~2023-06-23 | CT_ITS ---
EXAMINATION: CT abd pelvis lumbar wo con DATE: 06/23/2023 16:49 INDICATION: Lower abdominal pain, lower back pain TECHNIQUE: Computed tomography (CT) of the abdomen and pelvis and lumbar spine was performed without intravenous contrast. Automated exposure control and iterative reconstruction technique were employed . Exam dose: 536.61 mGy-cm total exam DLP. COMPARISON: 02/10/2022 CT abdomen pelvis FINDINGS: The lung bases are clear. Normal heart size. No pericardial or pleural effusion. Small sliding hiatal hernia. The liver, gallbladder, bile ducts, spleen, pancreas, pancreatic duct, and adrenal glands appear unre markable. There are several pinpoint nonobstructing right renal calculi and an approximately 2.7 mm nonobstruct ing left renal calculus. No ureteral calculi or hydroureteronephrosis. The urinary bladder, uterus an d adnexal areas are unremarkable. Normal caliber of the abdominal aorta. No intraperitoneal or retroperitoneal or pelvic mass lesion or adenopathy or ascites is detected. No bowel obstruction or intraperitoneal free air. Small fat-containing umbilical hernia. Included skeletal structures are unremarkable. Normal alignment of the lumbar spine. No spondylolysis or spondylolisthesis or fracture. Lumbar and lumbosacral interspaces are relatively preserved. IMPRESSION: Small sliding hiatal hernia Bilateral nonobstructive nephrolithiasis Reviewed, dictated and finalized at Location A. Reviewed, dictated and finalized at location A.
[2023-06-23 15:58] VITALS: BP 125/88; PULSE 91; RESP 18; TEMP 36.8; O2SAT 98
--- NOTE | 2023-06-23 16:25 | ED.BACK ---
HPI - Back Pain/Injury General Chief Complaint: Back Pain/Injury Stated Complaint: sciatica pain Time Seen by Provider: 06/23/23 16:21 Source: patient Mode of arrival: ambulatory Limitations: no limitations History of Present Illness HPI Narrative: 42 YEARS OLD WHITE FEMALE CAME TO THE EMERGENCY ROOM WITH PAIN ACROSS LUMBAR AREA, SQUEEZING, SHARP, WORSE WITH MOVEMENT, DIFFERENT POSITIONS, RADIATING TO LOWER EXTREMITIES, LOWER ABDOMEN BILATERALLY, RIGHT FLANK TENDERNESS. STARTED 3 DAYS AGO. PATIENT HAVE A LITTLE CHILD, 3 YEARS OLD, ASSOCIATED WITH A LOT OF PHYSICAL ACTIVITIES INCLUDING LIFTING. SHE DENIES ANY FEVER, CHILLS, NAUSEA, VOMITING, TROUBLE URINATING OR DEFECATING, PATIENT DENIES BOWEL DYSFUNCTION, BLADDER DYSFUNCTION, ALTERED SENSATION, FOCAL WEAKNESS, OR SADDLE NUMBNESS, Related Data Allergies Allergy/AdvReac Type Severity Reaction Status Date / Time No Known Allergies Allergy Unknown Verified 06/23/23 16:30 Review of Systems Review of Systems: All systems reviewed & are unremarkable except as noted in HPI and below PMFSH Past Medical History Medical History Conjunctivitis Surgical History Surgical History History of appendectomy History of Family History Family History Mother Breast cancer Father Rectal cancer Grandparent Diabetes mellitus Social History Social History Smoking packs per day: 1 Smoking cigarettes per day: 20.0 Smoking status: Current every day smoker Tobacco type: cigarettes Substance use: never Gender identity (if verbalized by the patient): Female Spiritual care concerns: No Exam Narrative: GENERAL APPEARANCE: WELL-DEVELOPED, WELL-NOURISHED SKIN: NORMAL COLOR HEAD: NORMOCEPHALIC, NONTRAUMATIC EYES: CLEAR CONJUNCTIVA ENT: OROPHARYNX NORMAL, EARS NORMAL, NOSE NORMAL NECK: SUPPLE, NONTENDER CHEST AND RESPIRATORY: AIRWAY PATENT, NO RESPIRATORY DISTRESS, NO ACCESSORY MUSCLE USE HEART: REGULAR RATE/RHYTHM ABDOMEN: SOFT, SLIGHT DIFFUSE TENDERNESS ACROSS LOWER ABDOMEN, NO GUARDING OR REBOUND, QUITE BOWEL SOUNDS, NO ORGANOMEGALY, QUIET BOWEL SOUNDS VASCULAR: NORMAL PERIPHERAL PULSES, NORMAL CAPILLARY REFILL. MUSCULOSKELETAL: DIFFUSE TENDERNESS ACROSS LUMBAR AREA MAINLY RIGHT BUTTOCK, NO BRUISES, NO RASH, NO SWELLING NEUROLOGIC: ALERT AND ORIENTED ?3, GLOVE MACHINE OPERATOR IS NORMAL TESTED, NO GROSS MOTOR DEFICIT, AND NEGATIVE LEG STRAIGHT RAISING TEST Course Vital Signs Vital signs: Vital Signs Temperature 36.8 C 06/23/23 15:58 Pulse Rate 91 06/23/23 15:58 Respiratory Rate 18 06/23/23 15:58 Blood Pressure 125/88 06/23/23 15:58 Pulse Oximetry 98 06/23/23 15:58 Oxygen Delivery Room Air 06/23/23 15:58 Temperature 36.7 C 06/23/23 18:07 Pulse Rate 90 06/23/23 18:07 Respiratory Rate 20 06/23/23 18:07 Blood Pressure 133/100 H 06/23/23 18:07 Pulse Oximetry 98 06/23/23 18:07 Oxygen Delivery Room Air 06/23/23 18:07 MDM - Back Pain/Injury Lab Data Labs: Lab Results 06/23/23 Range/Units 16:25 Urine Color Light yellow (Yellow) Urine Appearance Clear (Clear) Urine pH 6.0 (5.0-8.0) Ur Specific [place] <= 1.005 L (1.010-1.020) Urine Protein Negative (Negative) Urine Glucose (UA) Negative (Negative) Urine Ketones Negative (Negative) Ur Blood (Man) Negative (Negative) Urine Nitrate Negative (Negative) Urine Bilirubin Negative (Negative) Urine Urobilinogen 0.2 (0.2-1.0) mg/dL Leukocyt
[2023-06-23 16:43] LABS: Appearance Urine Clear (Clear); Bilirubin Urine Negative (Negative); Blood Urine Negative (Negative); Color Urine Light Yellow (Yellow); Glucose Urine UA Negative (Negative); Ketones Urine Negative (Negative); Leukocyte Esterase Ur Negative LEU/UL (Negative); Nitrate Urine Negative (Negative); Protein Urine Negative (Negative); Specific Grav Ur <= 1.005 (1.010-1.020); Urobilinogen Urine 0.2 mg/dL (0.2-1.0)
[2023-06-23 16:45] LABS: Add Urine Microscopic? NO
[2023-06-23] MEDS: ACETAMINOPHEN 500 MG TABLET 1000 MG PO (16:53)
[2023-06-23] MEDS: diazePAM (*CRX) 5 MG TABLET PO (16:53)
[2023-06-23] MEDS: KETOROLAC (*BKC) 60 MG/2 ML VIAL IM (16:54)
--- NOTE | 2023-06-23 16:58 | PC.NURSE ---
Radiology advised Pt requested a disc of her CT scan. Pt provided with disc.
[2023-06-23 18:07] VITALS: BP 133/100; PULSE 90; RESP 20; TEMP 36.7; O2SAT 98
== END 2023-06-23 18:07 | disposition home or self-care (01) ==
PROVIDERS: Emergency Provider Emergency Medicine; PCP Physician Assistant
DX: M54.50 Low back pain, unspecified (principal); M79.662 Pain in left lower leg; M79.661 Pain in right lower leg; F17.210 Nicotine dependence, cigarettes, uncomplicated
CPT/HCPCS: 72131; 74176; 81003; 96372; 99284; A9270; J1885

== ENCOUNTER 2023-06-27 17:23 | Outpatient (CLI) | payer OTHER, SELFPAY ==
--- NOTE | ~2023-06-27 | XR_ITS ---
EXAMINATION: XR lumbar spine 2-3V DATE: 06/27/2023 17:53 INDICATION: Low back pain. TECHNIQUE: 3 views of lumbar spine including weightbearing views were obtained. COMPARISON: Lumbar spine radiograph 08/27/2020 FINDINGS: There is 13 degrees levoscoliosis of lumbar spine. Vertebral body heights are normal. There are endplate osteophytes at multiple levels. Intervertebral disc heights are normal. There is multil evel facet joint osteoarthritis, severe on the right at L4-L5. IMPRESSION: 1. Mild lumbar spondylosis. 2. Lumbar levoscoliosis. Reviewed, dictated and finalized at location E.
== END 2023-06-27 17:24 | disposition home or self-care (01) ==
PROVIDERS: PCP Physician Assistant; Visit Provider Physician Assistant
DX: M54.50 Low back pain, unspecified (principal); M43.06 Spondylolysis, lumbar region; M41.86 Other forms of scoliosis, lumbar region
CPT/HCPCS: 72100

== ENCOUNTER 2023-07-04 15:53 | Outpatient (RCR) | payer OTHER, SELFPAY ==
--- NOTE | 2023-07-04 17:11 | OPREHPOC ---
Outpatient Therapy Plan of Care This is a Multidisciplinary Plan of Care that may contain components documented by all disciplines (PT, OT, and ST.) PT Problem 1 PT Problem #1 Knowledge Deficit PT Goal 1 Goal Patient to report independence with HEP Target Visit 5 PT Problem 2 PT Problem #2 Pain PT Goal 1 Goal 1. patient to report highest pain at 2/10 Target Visit 10 PT Problem 3 PT Problem #3 Impaired Strength PT Goal 1 Goal 1. Patient to demonstrate 5/5 of B LE to return to squatting for house hold tasks 2. Patient to demonstrate 4/5 core strength to return to standing for prolonged periods to complete house hold tasks Target Visit 10 PT Problem 4 PT Problem #4 Impaired Functional Mobil PT Goal 1 Goal 1. patient to report ability to lift her daughter with no mid back pain 2. patient to report ability to sit in the car for >30 minutes with no increase in back pain 3. patient to report ability to complete house hold tasks at PLOF Target Visit 10
--- NOTE | 2023-07-04 17:12 | PTOPEVAL1 ---
Assessment and note entered by Felicity Kimbrough DPT Evaluation Information Assessment Status Evaluation Diagnosis low back pain, mid back pain Onset 06/29/23 Subjective Information Patient reports about 3 weeks ago she was outside shoveling and felt a pop . she reports over the next few days she had B hip pain and went to the ER. she had x-rays at the ER that showed scoliosis and arthritis. she reports at the ER she was given a muscle relaxer and anti inflammatory that did help while she was taking them. she reports any movement increases pain. she reports pain is between the shoulder blades, and across the low back and into the hips with numbness and tingling down B LE. She reports she is not working currently. Reported Pain Level Pain Score 8,9: Self Report Assessment PT Clinical Summary Ms. Worley is a 42 year old female who presents to PT with mid and low back pain with radiating pain to B hips. She demonstrates decreased B hip and core strength, impaired posture, decreased LE flexibility and tenderness to the thoracic paraspinals limiting her ability to do dishes, do laundry, bend over to brain picker objects and ambulate prolonged periods. She would benefit from skilled PT to address impairments and return to PLOF. Plan of Care Interventions Electrical Stimulation,Gait Training,Hot Pack/Cold Pack,Manual Therapy,Mechanical Traction,Neuro Re- education,Patient/Caregiver Educati,Therapeutic Activities,Therapeutic Exercise PT Services Indicated Yes Treatment Frequency and 2x weekly for 10 visits Duration These treatments will address the objective and functional deficits as defined above. The patient will be advanced safely and appropriately in order for the patient to progress towards his/her prior level of function. Additional exercises will be introduced and as well as a comprehensive home exercise program upon discharge, if needed, ?to ensure carryover of functional gains achieved in the clinic. This treatment plan has been reviewed and agreement upon by the patient.
--- NOTE | 2023-07-06 15:57 | PCPTNOTE ---
patient fell asleep
--- NOTE | 2023-07-17 16:40 | PCPTNOTE ---
Pt. contacted the clinic and stated that she would be unable to attend therapy. She reports wanting to hold off on treatment until her schedule gets better. Carlos Cunningham, MPT
== END 2023-07-04 20:00 | disposition home or self-care (01) ==
LOC: CHSPT 15:53
PROVIDERS: Visit Provider Physician Assistant
DX: M54.9 Dorsalgia, unspecified (principal)
CPT/HCPCS: 97014; 97110; 97161; G0283

== ENCOUNTER 2023-11-17 08:42 | Outpatient (CLI) | payer OTHER, SELFPAY ==
--- NOTE | ~2023-11-17 | MMUS_ITS ---
EXAMINATION: US breast RT complete, MM diagnostic ayleen RT w demar HISTORY: Solitary cyst of the right breast TECHNIQUE: Additional 3-D tomosynthesis images of the right breast were performed and synthetic 2-D i mages were generated. CAD analysis was submitted and interpreted. High resolution complete right [facility] st ultrasound was performed. COMPARISON: Comparison to multiple prior studies sequentially, with oldest reviewed study dated 05/29. BREAST PARENCHYMAL COMPOSITION: Not dense: There are scattered areas of fibroglandular density. FINDINGS: MAMMOGRAPHIC FINDINGS: In the lower inner quadrant of the right breast, middle third there is a low-density mass, likely mariella ign lymph node, although there is no sonographic correlate. No other discrete masses are identified. ULTRASOUND: Complete US of all 4 quadrants of the right breast/s and retroareolar region was reviewed. At 12:00, 4 cm from the nipple there are 2 adjacent cysts, largest measuring 5 mm. No suspicious masses to sugg est malignancy. At 8:00, 5 cm from the nipple there is an oval hypoechoic mass measuring 10 x 9 x 6 m m without significant posterior features or internal vascularity, likely benign. IMPRESSION: 1. Probable benign right breast masses. 2. Recommend 6 month follow-up diagnostic bilateral mammogram and Limited right breast ultrasound BI-RADS category 3, probably benign findings. Reviewed, dictated and finalized at location B. IMPRESSION: 1. Probable benign right breast masses. 2. Recommend 6 month follow-up diagnostic bilateral mammogram and Limited right breast ultrasound BI-RADS category 3, probably benign findings.
== END 2023-11-17 08:43 | disposition home or self-care (01) ==
PROVIDERS: PCP Physician Assistant
DX: N60.01 Solitary cyst of right breast (principal)
CPT/HCPCS: 76641; 77061; 77065; G0279

== ENCOUNTER 2024-01-08 15:56 | Outpatient (CLI) | payer OTHER, SELFPAY ==
--- NOTE | ~2024-01-08 | CT_ITS ---
CT abdomen pelvis wo con Ordering provider: Deangelo Izquierdo, IT SECURITY PROJECT MANAGER History: 43 years Female with . Flank pain . Comparison: June 23, 2023 Technique: CT abdomen and pelvis without IV and without oral contrast. Automated exposure control and iterative reconstruction technique were employed. The dose-length product was 969.00 mGy-cm. Findings: VISUALIZED LOWER CHEST: 4 mm nodule is seen in the right middle lobe. 6-12 months follow-up CT is adv ised. Short UPPER ABDOMINAL ORGANS: Liver: Normal. Gallbladder: Normal. Spleen: Normal. Stomach/duodenum: Small sliding hiatus hernia. Pancreas: Normal. Adrenals: Normal. Kidneys: Tiny stone in the right kidney midpole. Multiple tiny stones in the right kidney lower pole. Stone in the left kidney midpole is seen measuring 4 mm. PELVIC ORGANS: The bladder is normal. Gross: Normal. BOWEL AND MESENTERY: Colon: No evidence of active diverticulitis. Fecal material is loaded in the colon. The appendix is n ot demonstrated. Small Bowel: Normal. No obstruction. Peritoneum/mesentery: No free air or free fluid. No mesenteric lymphadenopathy. RETROPERITONEUM: Tiny few calcifications otherwise, Normal aorta. No retroperitoneal lymphadenopathy . MUSCULOSKELETAL: Superficial soft tissues: Tiny fat-containing umbilical hernia. Otherwise, The superficial soft tissu es are normal. Bones: Mild degenerative changes of the spine. IMPRESSION: 1. Bilateral kidney stones. 2. Constipation. Reviewed, dictated and finalized at location A.
== END 2024-01-08 15:57 | disposition home or self-care (01) ==
PROVIDERS: PCP Physician Assistant; Visit Provider Registered Nurse
DX: R10.9 Unspecified abdominal pain (principal); N20.0 Calculus of kidney; K59.00 Constipation, unspecified
CPT/HCPCS: 74176

== ENCOUNTER 2024-04-09 14:36 | Outpatient (CLI) | payer OTHER, SELFPAY ==
--- OUTSIDE RECORDS SUMMARY | 2024-04-09 15:14 | XMS_ITS | Clinical Summary ---
Author Organization [facility] Address [address] [place] [address] Phone Care Team Providers Care Rides Supervisor Name Role Phone Eliazar Shelton Primary Care Provider [phone] Allergies No known active allergies Medications sertraline (ZOLOFT) 50 MG Tablet Take 50 mg by mouth daily. 05/16/2019 Active fluticasone (FLONASE) 50 MCG/ACT Suspension 1 Sullivan by Nasal route daily. 03/16/2019 Active tiZANidine (ZANAFLEX) 2 MG Tablet Take 1 Tab by mouth 3 times daily as needed for Muscle spasms. 90 Tab 05/30/2019 Active traMADol (ULTRAM) 50 MG TabletIndicatio ns:Chronic bilateral low back pain with bilateral sciatica Take 1 Tab by mouth 2 times daily as needed for Moderate or more severe pain. 12 Tab 09/05/2019 Active Active Problems Problem Noted Date Diagnosed Date Chronic bilateral low back pain with bilateral s ciatica 05/30/2019 Numbness and tingling of both lower extremities 05/30/2019 Numbness and tingling of both upper extremities 05/30/2019 Cervical radiculopathy 05/30/2019 Social History Tobacco Use Types Packs/Day Years Used Date Smoking Tobacco: Never Assessed Comments Unknown Sex and Gender Information Value Date Recorded Sex Assigned at Not on file Legal Sex Female 2:25 PM CDT Gender Identity Not on file Sexual Orientation Not on file Last Filed Vital Signs Vital Sign Reading Time Taken Comments Blood Pressure 127/79 05/30/2019 10:52 AM CDT Pulse 81 05/30/2019 10:52 AM CDT Temperature 35.9 ??C (96.7 ??F) 05/30/2019 10:52 AM C DT Respiratory Rate - - Oxygen Saturation - - Inhaled Oxygen Concentration - - Weight - - Height - - Body Mass Index - - Plan of Treatment Health Maintenance Due Date Last Done Comments Hepatitis C Virus (HCV) Screening 1978 TdaP Immunization 1978 Hepatitis B Immunization (1 of 3 - 19+ 3-dose series) 1997 Pap Smear 11/24/1999 Cervical Cancer Screening (CCS) 2008 HPV/Cotest 2008 Discussion re Starting/Frequency of Mammograms 2018 Influenza Immunization (#1) 2023 01/22/2014 SARS-COV-2 Immunization (2023- season) 2023 Colonoscopy 11/24/2023 Colorectal Cancer Screening 11/24/2023 Respiratory Syncytial Virus (RSV) Immunization (Adult) (1 - 1-dose 75+ series) 2053 DTaP/Tdap/Td Immunization Discontinued 1993, 11/12/1983, 11/24/1982, Additional history exists Meningococcal Immunization (ACWY) Aged Out No longer eligible based on patient's age to complete this topic Pneumococcal Immunization Combined Aged Out No longer eligible based on patient's age to complete this topic Rotavirus Immunization Aged Out No lo nger eligible based on patient's age to complete this topic [facility] Care Teams Rides Supervisor Relationship Specialty Start Date End Date Eliazar Shelton PAC [address] [place] [address] PCP - General Family Medicine 05/30/19
--- OUTSIDE RECORDS SUMMARY | 2024-04-09 15:14 | XMS_ITS | Patient Health Summary ---
Author Organization [facility] Address [address] [place] [address] Care Team Providers Care Office Manager Receptionist Name Role Phone Unavailable Primary Care Provider Unavailabl e Note from [facility],non-owned Affiliates and Associated Physician Practices is amultiple site organization consisting of ambulatory clinics and hospital sitesin [place], [place], [place] and [place]. This disclosure is being madepursuant to the Care Everywhere program and may not contain all information available regarding this patient. Last updated 17.[facility] [employer] Active Problems Problem Noted Date Diagnosed Date AMA (advanced maternal age) multigravida 35+, first trimester 12/20/2019 Nuchal translucency of fetus on ultraso und 12/20/2019 Social History Tobacco Use Types Packs/Day Years Used Date Smoking Tobacco: Never Assessed Sex and Gender Information Value Date Recorded Sex Assigned at Not on file Gender Identity Not on file Sexual Orientation Not on file Last Filed Vital Signs Vital Sign Reading Time Taken Comments Blood Pressure - - Pulse - - Temperature 35.9 ??C (96.7 ??F) 05/19/2020 8:27 AM CS T Respiratory Rate - - Oxygen Saturation - - Inhaled Oxygen Concentration - - Weight - - Height - - Body Mass Index - - Procedures * SONOGRAM - COMPLETE(Performed 05/19/2020) Performed for AMA (advanced maternal age) multigravida 35+, first trimester (HCC) * SONOGRAM - COMPLETE(Performed 04/07/2020) Performed for AMA (advanced maternal age) multigravida 35+, first trimester (HCC) * SONOGRAM - COMPLETE(Performed 03/10/2020) Performed for AMA (advanced maternal age) multigravida 35+, first trimester (HCC), Nuchal translucency of fetus on ultrasound (HCC) * SONOGRAM - COMPLETE(Performed 02/11/2020) Performed for AMA (advanced maternal age) multigravida 35+, first trimester (HCC), Nuchal translucency of fetus on ultrasound (HCC) * FIRST TRI NUCHAL TRANSLUCENCY W:SEQ SCREEN(Performed 12/23/2019) Performed for AMA (advanced maternal age) multigravida 35+, first trimester (HCC), Nuchal translucency of fetus on ultrasound (HCC) Results * SONOGRAM - COMPLETE (05/19/2020 8:27 AM SURGICAL INSTRUMENT REPAIR SPECIALIST) Only the most recent of4 resultswithin the time period is included. Anatomical Region Laterality Modality Other 05/19/2020 8:27 AM SURGICAL INSTRUMENT REPAIR SPECIALIST Narrative 05/19/2020 9:11 AM SURGICAL INSTRUMENT REPAIR SPECIALIST ? [facility] ? [facility] ?PHONE: ??FAX: Pat. Name: ?DESTINY MORENO No: ?[id number] Study Date: ?? 05/19/2020 ??8:27am , Age: ? 1980, 39 Pregnancies: ?? 3, Para 2 Height: ? 64 in Weight: ? 171 lb LMP: ?Unknown GA by Base: ?? 33w3d ?? MANISH: 07/04/2020 GA by US: ? 32w1d ?? MANISH: 07/13/2020 GA Selected: ??33w3d (From [facility]) MANISH: ?07/04/2020 Referring MD: Sandhya Nelson MD Nursing Unit Coordinator: ??Annalise Shah RDMS CPT4: ? 92312,18759 BMI: ?29.35 Hist/Ind: ? Low-lying placenta ?AMA >40, low-risk NIPT ?Prior x 2 ?Tobacco use MEASUREMENTS & AGE ? GROWTH EVALUATION Measurement ??GA ? Range ? Srce %for GA Ratios ----- ---- ------- BPD ??7.9 cm 31w4d (76r2k-17j0o) Hadl BPD 5% FL/BPD 0.77 (0.71 - 0.87) HC ??29.7 cm 32w6d (15y7f-54x9i) Hadl HC ??6% FL/AC ??0.21 (0.20 - 0.24) AC ??29.0 cm 33w0d (07u4x-03a1i) Hadl AC ??37% HC/AC ??1.03 (0.95 - 1.13) FL ?? 6.0 cm 31w3d (24t6v-33o5x) Hadl FL ??3% CI ? 0.74 (0.70 - 0.86) GA for sonogram 32w1d (33q4b-24o7h) ?? Weight Estimate: based on (BPD,HC,AC,FL) Avg ?Weight: 1960 gm (1674-2247gm) Had ? : 4lbs, 5oz ? Normal: 2258 gm (1693- 2822gm) Had ? Wt% ? 16% for 33w3d Cervix: ??Length: 4.2 cm ??Approach: transvaginal Heart Rate: 166 bpm Amniotic Fluid Index: 18.4cm (08.2-24.6) Q1: 5.3cm ??Q2: 6.6cm ??Q3: 4.5cm ??Q4: 2.1cm ?? EVAL, PLACENTA Presentation: cephalic Placenta: posterior Previa: not low-lying Heart Rate: 166 bpm Amniotic Fluid Volume: normal Anatomy!Normal!Abnormal!Suboptimal!Prev. Seen!Comments Profile ?! ?? x ??! ?! ?! ?! LVOT ? ! ?? x ??! ?! ?! ?! Situs ?! ?? x ??! ?! ?! ?! Stomach ?! ?? x ??! ?! ?! ?! Bladder ?! ?? x ??! ?! ?! ?! 3 Vessel Cord! ?? x ??! ?! ?! ?! CLINICAL SUMMARY Study Number: 5 ?? No abnormalities were detected during today's limited review of the anatomy. IMPRESSION: ?? 1) Mcintosh gestation, 33w3d 2) Biometry is consistent with appropriate interval growth 3) Transvaginal ultrasound reveals a minimum cervical length of 4.2 cm 4) The placenta is not currently low-lying NOTE: The patient was advised that ultrasound does not allow detection of all structural or chromosomal abnormalities. ?? RECOMMEND: ?? Follow up ultrasound only if clinically indicated Thank you for allowing us the opportunity to care for your patient. Estrella Saldivar MD <Electronic Signature> ??05/19/2020 09:11am Sandhya Nelson MD [facility] ORDERABLES * FIRST TRI NUCHAL TRANSLUCENCY W:SEQ SCREEN (12/23/2019 7:52 AM CDT) Anatomical Region Laterality Modality Other 12/23/2019 7:52 AM CDT Narrative 12/23/2019 9:32 AM CDT ? [facility] ? [facility] ?PHONE: ??FAX: Pat. Name: ?DESTINY MORENO. No: ?[id number] Study Date: ?? 12/23/2019 ??7:52am , Age: ? 1980, 39 Pregnancies: ?? 3, Para 2 Height: ? 64 in Weight: ? 171 lb LMP: ?Unknown GA by US: ? 12w2d ?? MANISH: 07/04/2020 GA Selected: ??12w2d (Outside Scan) MANISH: ?07/04/2020 Referring MD: Sandhya Nelson MD Nursing Unit Coordinator: ??Stephy Hernandes RDMS, [place] CPT4: ? 36908 BMI: ?29.35 Hist/Ind: ? AMA ?NIPT ?Tobacco use MEASUREMENTS & AGE ? GROWTH EVALUATION Measurement ??GA ? Range ? Srce %for GA Ratios ----- ---- ------- CRL ??5.8 cm 12w2d (61i5o-98u5r) Hadl CRL 52% GA for sonogram 12w2d (75r9h-01i7m) based on (CRL) Avg ? Heart Rate: 158 bpm EVAL, PLACENTA Location: intrauterine Gestational Sac: normal Heart Rate: 158 bpm Anatomy!Seen!Not Seen!Comments Amnion ? ! ??x ! ?! Chorion ?! ??x ! ?! Myometrium ?? ! ??x ! ?! Cul de sac ?? ! ??x ! ?! Calvarium ?! ??x ! ?! Midline Falx ! ??x ! ?! 4th Ventricle! ??x ! ?! Ventricles ?? ! ??x ! ?! Choroid Plexu! ??x ! ?! Nasal Bone ?? ! ??x ! ?! Neck/Dorsum ??! ??x ! ?!< 3mm 4 CH ? ! ??x ! ?! Transtracheal! ??x ! ?! Ventral Wall ! ??x ! ?! Abdominal Cor! ??x ! ?! Diaphragm ?! ??x ! ?! Stomach ?! ??x ! ?! Bladder ?! ??x ! ?! Upper Extremi! ??x ! ?! Lower Extremi! ??x ! ?! CLINICAL SUMMARY Study Number: 1 ?? A single intrauterine with cardiac activity is seen. ?? There is no free fluid seen in the pelvis. ??The right ovary was not seen. ??The left ovary was not seen. ?? Blood was obtained today for NIPT. ?? IMPRESSION: Single, live, intrauterine preganacy at 12w2d ?? Aneuploidy screening via NIPT was performed ?? RECOMMEND: Follow up ultrasound at 20 weeks to evaluate anatomy and transvaginal cervical screening ?? We anticipate results of NIPT within 1-2 weeks Maternal serum AFP should be drawn between 15-22 weeks ?? Thank you for allowing us the opportunity to care for your patient. ?? Omar Bo MD <Electronic Signature> ??12/23/2019 09:27am Sandhya Nelson MD [facility] ORDERABLES
--- OUTSIDE RECORDS SUMMARY | 2024-04-09 15:14 | XMS_ITS | Clinical Summary ---
Author Organization [facility] Address [address] [place] [address]. [place] [address] [place] [address] Care Team Providers Care Theology Teacher Name Role Phone Vicente Leger MD Primary Care Provider Allergies No known active allergies Medications meloxicam 15 MG tablet Take 15 mg by mouth daily. 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 Overview (11/30/2018): Added automatically from request for surgery [id number] Thrombosed external hemorrhoids 06/07/2016 Cervical radiculopathy 04/28/2015 Fibromyalgia 03/04/2015 Bilateral hand numbness 03/03/2015 Burning sensation of feet 03/03/2015 Numbness and tingling of both legs 03/02/2015 Family History Medical History Relation Comments Breast Cancer Mother Breast Cancer Paternal Aunt Relation Status Comments Mother Paternal Aunt Social History Tobacco Use Types Packs/Day Years Used Date Smoking Tobacco: Every Day Cigarettes Smokeless Tobacco: Never Alcohol Use Standard Drinks/Week Comments No 0 (1 standard drink = 0.6 oz pur e alcohol) AUDIT-C Answer Date Recorded Frequency of Alcohol Consumption Never 2018 Average Number of Drinks Not on file 019 Frequency of Binge Drinking Not on file 11/11 Comments No Sex and Gender Information Value Date Recorded Sex Assigned at Female 03/25/2019 11:01 AM PHOTO TECHNOLOGIST Legal Sex Female 10:39 PM PHOTO TECHNOLOGIST Gender Identity Female 03/25/2019 11:01 AM PHOTO TECHNOLOGIST Sexual Orientation Not on file Last Filed Vital Signs Vital Sign Reading Time Taken Comments Blood Pressure 142/86 12/25/2018 5:19 PM CDT Pulse 96 12/25/2018 5:19 PM CDT Temperature 36.6 ??C (97.8 ??F) 12/25/2018 5:19 PM CD T Respiratory Rate 18 12/25/2018 5:19 PM CDT Oxygen Saturation 97% 12/25/2018 5:19 PM CDT Inhaled Oxygen Concentration - - Weight 77.1 kg (170 lb) 12/25/2018 5:19 PM CDT Height 162.6 cm (5' 4 ) 12/25/2018 5:19 PM CDT Body Mass Index 29.18 12/25/2018 5:19 PM CDT Plan of Treatment Health Maintenance Due Date Last Done Comments Cervical Cancer Screening Pa p Smear (Age 30 to 64) Every 3 Years 1978 Colorectal Cancer Screening Colonoscopy (10 Years) 1978 Annual Physical 1981 Pneumococcal Vaccine: Pediat rics (0 to 5 Years) and At-Risk Patients (6 to 64 Years) (1 of 2 - PCV) 1984 Hepatitis C 1996 DTaP, Tdap and Td Vaccines ( 1 - Tdap) 1997 Hepatitis B Vaccines (1 of 3 - 19+ 3-dose series) 1997 Cervical Cancer Screening Pa p with HPV Testing (Age 30 to 64) Every 5 Years 2008 Cervical Cancer Screening with HPV 2008 Mammogram Screening 11/15/2020 11/15/2018 COVID-19 Vaccine (2023-2 5 season) 2023 Influenza Adult (#1) 2023 HPV Vaccines Aged Out No longer eligi ble based on patient's age to complete this topic Meningococcal B Vaccine Aged Out No l onger eligible based on patient's age to complete this topic Meningococcal Vaccine Aged Out No nolan hanna eligible based on patient's age to complete this topic RSV Immunizations Under 20 Months Aged Out No longer eligible based on patient's age to complete this topic Procedures Procedure Name Priority Date/Time Associated Diagnosis Comments MG RAYMUNDO Moscoso QUANG BILAT DIGI Routine 11/15/2018 11:06 AM CDT Breast pain from Last 3 Months or Most Recently Relevant to Health Maintenance Results * MG RAYMUNDO Moscoso QUANG BILAT DIGI (11/15/2018 11:06 AM CDT) Anatomical Region Laterality Modality Breast Bilateral Mammography, Rad iographic Imaging 11/15/2018 1:11 PM CDT Impressions 11/15/2018 1:24 PM CDT IMPRESSION: 1. Moderately dense breasts with no mammographically suspicious change on the left since the previous exams. 2. New indeterminate right breast mass as described. Biopsy is recommended. See text. Recommendation: 1: Needle biopsy ??Right ? Overall assessment: ACR BI-RADS Category 4 - Suspicious. Return for Routine Follow-Up: No Interpreted By: Jaren Hdez, 11/15/2018 1:11 PM Narrative 11/15/2018 1:24 PM CDT Examination: Bilateral digital diagnostic mammogram with CAD. [id number] Clinical history: Chronic bilateral generalized breast discomfort. New palpable tender and painful mass near the 12:00 position on the right. Routine screening on the left. History of breast cysts. Reported history of previous excision of a cyst on the left. Comparison: 02/11/2016, 07/15/2015. Technique: Bilateral digital mammograms including spot compression imaging on the right.. The exam was interpreted with the use of a computer-aided detection (CAD) system. Additional 3-D Tomosynthesis images were acquired in the CC and MLO projections. Tissue density: ??The breast tissue is heterogeneously dense. Findings: ?The breasts again demonstrate mixed fat and moderately dense fibroglandular tissue. Benign-appearing calcification noted. The left breast is otherwise unremarkable. On the right, smoothly marginated ovoid masses representing previously documented cysts are stable to decreased in size and conspicuity. A marker was placed at the site of concern indicated by the patient lying in the 12:00 periareolar distribution. Underlying the marker is a new smoothly marginated macrolobulated mass measuring approximately 4.3 x 3 cm. There is no associated architectural distortion or microcalcification. The right breast is otherwise unremarkable. Examination: Right breast ultrasound. Technique:Grayscale and color Doppler images. Findings: Evaluation at the site of palpable and mammographic concern in the 12:00 periareolar distribution demonstrates an ovoid well-circumscribed mildly heterogeneous hypoechoic solid mass oriented parallel to the skin surface measuring approximately 3 x 3 x 1.7 cm. There is some internal color flow on Doppler. There is neither clear-cut posterior acoustical enhancement nor posterior acoustical shadowing. Hamilton appearing tissue architecture is otherwise demonstrated. No other sonographically discrete finding is identified. Evaluation of the axilla discloses no morphologically abnormal appearing lymph nodes. Primary considerations for the findings on the right are fibroadenoma versus phyllodes tumor. Biopsy for tissue diagnosis is therefore recommended. The mass would seem readily amenable to ultrasound-guided core biopsy for this purpose. These findings were discussed with the patient. us Eliazar [facility] MAMMO Final Result from Last 3 Months or Most Recently Relevant to Health Maintenance Insurance [employer] MEDICAID Care Teams Theology Teacher Relationship Specialty Start Date End Date Vicente Leger MD [address] [place] [phone] PCP - General FAMILY PRACTICE 11/06/18
--- OUTSIDE RECORDS SUMMARY | 2024-04-09 15:14 | XMS_ITS | Encounter Summary ---
Author Organization [facility] Address [address] [place] [address]. [place] [address] [place] [address] Care Team Providers Care Tunnel Heading Inspector Name Role Phone Vicente Leger MD Primary Care Provider [phone] Encounter Details Date Type Department Care Team (Late st Contact Info) Description 08/18/2018 Abstract [facility] CONVERSION [address] [place] [address] , Generic Conversion, Social History Tobacco Use Types Packs/Day Years Used Date Smoking Tobacco: Never Assessed Comments Unknown Sex and Gender Information Value Date Recorded Sex Assigned at Female 03/25/2019 11:01 AM GIFTED TEACHER Legal Sex Female 10:39 PM GIFTED TEACHER Gender Identity Female 03/25/2019 11:01 AM GIFTED TEACHER Sexual Orientation Not on file documented as of this encounter Plan of Treatment Not on file documented as of this encounter Visit Diagnoses Not on filedocumented in this encounter Care Teams Tunnel Heading Inspector Relationship Specialty Start Date End Date Vicente Leger MD [address] [place] [phone] PCP - General FAMILY PRACTICE 11/06/18 documented as of this encounter
--- OUTSIDE RECORDS SUMMARY | 2024-04-09 15:14 | XMS_ITS | Clinical Summary ---
Author Organization [facility] Address [address] [place] [address] Care Team Providers Care Child Custody Evaluator Name Role Phone Unavailable Primary Care Provider Unavailabl e Source Comments [facility],non-owned Affiliates and Associated Physician Practices is amultiple site organization consisting of ambulatory clinics and hospital sitesin [place], [place], [place] and [place]. This disclosure is being madepursuant to the Care Everywhere program and may not contain all information available regarding this patient. Last updated 17.[facility] Active Problems Problem Noted Date Diagnosed Date [...] Health Maintenance Due Date Last Done Comments COLOGUARD (AGES 45-75) - COL ON CA SCREENING 1978 COLON MONITORING 1978 COLONOSCOPY - COLON CA SCREENING 1978 CT COLONOGRAPHY - COLON CA SCREENING 1978 Colorectal Cancer Screening 1978 FIT - COLON CA SCREENING 1978 FLEX SIG - COLON CA SCREENING 1978 LIPID TESTING 1978 MAMMOGRAM 1978 PAP SMEAR 1978 HIV SCREENING 1993 HEPATITIS C SCREENING 11/18/1996 DTAP/TDAP/TD VACCINES (1 - Tdap) 1997 HEPATITIS B VACCINE (1 of 3 - 19+ 3-dose series) 1997 COVID-19 VACCINE (1 - 2023-2 5 season) 2023 INFLUENZA VACCINE (#1) 2023 12/04/2012 DEPRESSION SCREENING 03/13/2024 ZOSTER VACCINE (1 of 2) 2028 HIB VACCINE Aged Out No longer eligi ble based on patient's age to complete this topic HPV VACCINE Aged Out No longer eligi ble based on patient's age to complete this topic MENINGOCOCCAL (Group B) VACCINE Aged Out No longer eligible based on patient's age to complete this topic MENINGOCOCCAL VACCINE Aged Out No nolan hanna eligible based on patient's age to complete this topic PNEUMOCOCCAL VACCINE Aged Out No long er eligible based on patient's age to complete this topic
--- OUTSIDE RECORDS SUMMARY | 2024-04-09 15:14 | XMS_ITS | Data Portability ---
Author Organization [facility], [address] [facility] ([place]) Address [address] 4th [place] [address] Care Team Providers Care Head Of Stock Name Role Phone REY OWENS Primary Care Provider Assessment Encounter Date Assessment Date Assessment LastModified by Organization Details LastModified Time 07/20/2023 07/20/2023 42yo F right breast focal asymmetry MMG, US shows complicated 5 mm cyst at 1:00 4 cm from nipple. BI-RADS 3. LTR 17% Right breast diagnostic mammogram and ultrasound in 6 months, will call with results As long as this imaging is benign, bilateral mammogram in 1 year Return to the clinic in 1 year Call with any concerns 45 minutes spent counseling,charge coordinator rdinating care, and documentation, as well as reviewing imaging and recent medical documentation. Not available 07/23/2023 13:33:01 Plan of Treatment Reminders Order Date Submit Date Provider Last Modified By Organization Details Last Modified Time Details Appointments None record ed. Lab None record ed. Referral None record ed. Procedures None record ed. Surgeries None record ed. Imaging None record ed. Medication Orders None record ed. Patient TargetsNo targets recorded. Patient Instructions Encounter Date Encounter Id Patient Instructions Last Modified By Organization Details Last Modified Time 07/20/2023 [id number] We discussed the management of patients at high risk for breast cancer or those with over a 20% calculated lifetime risk. While she does have a considerable family history of breast cancer, her calculated lifetime T-C is 17%. She has scattered fibroglandular breast densities. At this time, I would not recommend any additional screening. She will need close follow up of the right breast cyst. We will order right breast diagnostic mammogram and ultrasound in 6 months. She can do this in [place]. As long as this imaging is benign we will repeat her bilateral mammogram in 1 year. I will see her back in the clinic for clinical breast exam at that time. If she has any other questions concerns or breast changes she should reach out sooner. She voices understanding. Not available 07/23/2023 13:35:09 Reason for Referral None Reported. Results Created Date Observation Date Name Description Value Unit Range Abnormal Flag Note LastModifiedBy Organization Detail LastModifiedTime 08/18/19 24 MAMMO , diagn ostic , tomos ynthe sis, unila teral No observ ation record ed. [facility] [place] [facility] [address] [place], [address], 02/26/2024 08:58:54 11/17/19 24 11/17/2023 MAMMO , diagn ostic , tomos ynthe sis, unila teral No observ ation record ed. [facility] (Imaging) [address] [place], [address], 11/21/2023 15:58:16 Result Notes None recorded. Problems Name Problem SNOMED Code Status Onset Date Resolution Date Notes Provider Name and Address Organization Details Recorded Time Cyst of right breast [id number] Active 2023 BETO ARAYA, VP CLINICAL RESEARCH [address], [address] [place] [address] 13:35:20 Problem Notes None recorded. Procedures Surgical History None recorded. Imaging Results Imaging Date Name Status [facility]Modified by [facility] Details LastModified Time 11/17/2023 MAMMO, diagnostic, tomosynthesis, unilateral completed [facility] (Imaging) [address] [place], [address], 11/21/2023 15:58:16 08/18/2023 MAMMO, diagnostic, tomosynthesis, unilateral completed [facility] [place] [facility] [address] [place], [address], 02/26/2024 08:58:54 Procedure Notes None recorded. Medical Equipment None Reported. Medications Name Sig Start Date Stop Date Status Note LastModified by Organization Details LastModified Time cyclobenzaprine 10 mg tablet TAKE 1 TABLET BY MOUTH THREE TIMES DAILY NEEDED FOR MUSCLE SPASM active Not Available Not Available No t Available fluconazole 200 mg tablet TAKE ONE TABLET BY MOUTH TODAY, THEN TAKE ONE TABLET IN 3 DAYS active Not Available Not Available No t Available dexamethasone 4 mg tablet TAKE 1 TABLET BY MOUTH THREE TIMES DAILY active Not Available Not Available No t Available sertraline 50 mg tablet TAKE 1 TABLET BY MOUTH ONCE DAILY active Not Available Not Available No t Available naproxen 500 mg tablet TAKE 1 TABLET BY MOUTH TWICE DAILY NEEDED FOR PAIN active Not Available Not Available No t Available amoxicillin 875 mg-potassium clavulanate 125 mg tablet TAKE 1 TABLET BY MOUTH TWICE DAILY active Not Available Not Available No t Available amoxicillin 500 mg-potassium clavulanate 125 mg tablet TAKE 1 TABLET BY MOUTH THREE TIMES DAILY active Not Available Not Available No t Available Vitals Date Recorded Body weight Provider Name an d Address Organization Details Last Updated DateTime 07/20/[address] [facility] 07/20/2023 15:41:30 Date Recorded Systolic blood pressure Diastolic blood pressure Provider Name and Address Organization Details Last Updated DateTime 07/20/2023 124 mm[Hg] 86 mm[Hg] [facility] 07/20/2023 15:41:36 Social History None recorded. Functional Status None recorded. Mental Status None recorded. Family History Nothing Reported. Medical History No medical history recorded. Gynecological HistoryNo gynecological history recorded. Obstetrics History GPAL:G 0 P 0 0 0 0 Past Encounters Encounter ID Performer Location Encounter Start Date Encounter Closed Date Diagnosis/Indication Diagnosis SNOMED-CT Code Diagnosis ICD10 Code Diagnosis Note [id number] Beti Torres MD, FACS [address] [facility] ([place]) [address] [place] [address],[address] [place] [address] 07/20/2023 15:24:41 07/20/2023 16:08:34 Cyst of right breast [id number] 5120324 N60.01 Health Concerns Section Related Observation LastModified by Organization Nico chavira LastModified Time None Recorded Concern Status LastModified by Organization Details LastModified Time None Recorded Advance Directives Directive None Recorded Payers Encounter Date Sequence Insurance Name Policy Number Policy Gallardo Covered Member ID Gallardo Member ID Guarantor Name 07/20/2023 1 [employer]ET[employer] BETTER [employer] OF [place] - [facility] ON OR AFTER 02/11/2020 (MEDICAID REPLACEMENT - HMO) Destiny Worley [id number] Destiny Worley Notes Date Note Type Note Provider Name and Address Organization Details Recorded Time 07/20/2023 text/html Destiny is see n today for evaluation of right breast cyst. She had diagnostic right mammogram and ultrasound on 06/15/2023 at [facility] for a follow-up of a right breast asymmetry seen on screening mammogram. On mammography, there was a persistent focal asymmetry medially in the right breast. Ultrasound at 1:00 4 cm from nipple shows a complicated 5 mm cyst. 6-month follow-up diagnostic right mammogram and ultrasound was recommended. BI-RADS 3. Calculated lifetime risk of breast cancer T/C 17%. Her first menstrual cycle was at age 11. She is G3, P3 with first at 26. She is currently still breast-feeding. She has no history of HRT or infertility drugs. She reports cysts in both breasts. She has had a fibroadenoma surgically excised from her right breast in 2019. She also states she had a left breast surgery in 2004 that was benign. I do not have the pathology report for this surgery. No personal history of breast cancer, radiation therapy, chemotherapy, or autoimmune disorders. Family history:Mother? b reast cancer at 52Father? c olon cancer at 60Paternal aunt? b reast cancer unknown agePaternal uncle? l iver/lungPaternal grandfather? c olonMaternal aunt? b reast 40s BETO ARAYA, VP CLINICAL RESEARCH [address] , [place], [address], [facility] 07/23/2023 13:35:50 OBGyn Episode No OBEpisode recorded.
--- OUTSIDE RECORDS SUMMARY | 2024-04-09 15:14 | XMS_ITS | Referral Summary ---
Author Organization [facility] Address [address] [place] [address] Care Team Providers Care Residential Concierge Name Role Phone Unavailable Primary Care Provider Unavailabl e Source Comments [facility] Affiliates and Associated Physician Practices is amultiple site organization consisting of ambulatory clinics and hospital sitesin [place], [place], [place] and [place]. This disclosure is being madepursuant to the Care Everywhere program and may not contain all information available regarding this patient. Last updated 17.[facility] Localist Active Problems Problem Noted Date Diagnosed Date [...] Mass Index - - Plan of Treatment Not on file Destiny Worley Personal/Family Self 1980 ([place]) [address] [place] [address]
[2024-04-09 15:36] LABS: Strep Group A RT-PCR NOT DETECTED (Negative)
[2024-04-09 15:43] LABS: SARS-CoV-2 RNA PCR Negative (Negative)
[2024-04-09 15:44] LABS: Influenza A QL RT-PCR Negative (Negative); Influenza B QL RT-PCR Negative (Negative); RSV RNA, RT-PCR Negative (Negative)
== END 2024-04-09 14:37 | disposition home or self-care (01) ==
PROVIDERS: PCP Registered Nurse; Visit Provider Registered Nurse
DX: R68.89 Other general symptoms and signs (principal)
CPT/HCPCS: 87637; 87651

== ENCOUNTER 2024-06-27 09:35 | Outpatient (CLI) | payer OTHER, SELFPAY ==
--- NOTE | ~2024-06-27 | MMUS_ITS ---
EXAMINATION: MM diagnostic ayleen BI w demar, US breast BI complete HISTORY: Follow-up right breast mass TECHNIQUE: Additional 3-D tomosynthesis images of the breasts were performed and synthetic 2-D images were generated. CAD analysis was submitted and interpreted. High resolution bilateral complete breas t ultrasound was performed. COMPARISON: Comparison to multiple prior studies sequentially, with oldest reviewed study dated 05/29. BREAST PARENCHYMAL COMPOSITION: Dense: The breasts are heterogeneously dense, which may obscure small masses FINDINGS: MAMMOGRAPHIC FINDINGS: There are is a small mass in the lower outer quadrant of the right breast, anterior third with low-de nsity centrally and circumscribed margins, likely benign. There are no suspicious masses, calcificati ons or architectural distortion in the left breast to suggest malignancy. ULTRASOUND: Complete US of all 4 quadrants of the breast/s and retroareolar region was reviewed. Right breast: Multiple cysts of the right breast, largest at 8:00, 5 cm from the nipple measuring 9 m m. No suspicious masses to suggest malignancy. Left breast: Normal heterogeneous echotexture without focal solid or cystic mass. IMPRESSION: 1. No evidence for malignancy in either breast. Benign findings. 2. Routine yearly screening mammogram and regular clinical breast examination are recommended. BI-RADS Category 2: Benign finding(s). Reviewed, dictated and finalized at location B. IMPRESSION: 1. No evidence for malignancy in either breast. Benign findings. 2. Routine yearly screening mammogram and regular clinical breast examination a re recommended. BI-RADS Category 2: Benign finding(s).
--- OUTSIDE RECORDS SUMMARY | 2024-06-27 10:12 | XMS_ITS | Clinical Summary ---
Author Organization [facility] Address [facility] [place] [address] Care Team Providers Care Collar Cutter Name Role Phone Vicente Leger MD Primary Care Provider [phone] Allergies No known active allergies Medications meloxicam 15 MG tablet Take 15 mg by mouth daily. 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 Overview (11/30/2018): Added automatically from request for surgery [id number] Thrombosed external hemorrhoids 06/07/2016 Cervical radiculopathy 04/28/2015 [...] Sex Assigned at Female 03/25/2019 11:01 AM WATER TECHNICIAN Legal Sex Female 10:39 PM WATER TECHNICIAN Gender Identity Female 03/25/2019 11:01 AM WATER TECHNICIAN Sexual Orientation Not on file Last Filed Vital Signs Vital Sign Reading Time Taken Comments Blood Pressure 142/86 12/25/2018 5:19 PM CDT Pulse 96 12/25/2018 5:19 PM CDT Temperature 36.6 C (97.8 F) 12/25/2018 5:19 PM CDT Respiratory Rate 18 12/25/2018 5:19 PM CDT [...] 5 Years) and At-Risk Patients (6 to 49 Years) (1 of 2 - PCV) 1984 Hepatitis C 1996 DTaP, Tdap and Td Vaccines ( 1 - Tdap) 1997 Hepatitis B Vaccines (1 of 3 - 19+ 3-dose series) 1997 Cervical Cancer Screening Pa p with HPV Testing (Age 30 to 64) Every 5 Years 2008 Cervical Cancer Screening with HPV 2008 Mammogram Screening 11/15/2020 11/15/2018 COVID-19 Vaccine ( - 2023-2 5 season) 2023 HPV Vaccines Aged Out No longer [...] Name Priority Date/Time Associated Diagnosis Comments MG DIAG W QUANG BILAT DIGI Routine 11/15/2018 11:06 AM CDT Breast pain from Last 3 Months or Most Recently Relevant to Health Maintenance Results * MG DIAG W QUANG BILAT DIGI (11/15/2018 11:06 AM CDT) Anatomical Region Laterality Modality Breast Bilateral Mammography, Rad iographic Imaging 11/15/2018 1:11 PM CDT Impressions 11/15/2018 1:24 PM CDT IMPRESSION: 1. Moderately dense breasts with no mammographically suspicious change on the left since the previous exams. 2. New indeterminate right breast mass as described. Biopsy is recommended. See text. Recommendation: 1: Needle biopsy Right Overall assessment: ACR BI-RADS Category 4 - Suspicious. Return for Routine Follow-Up: No Interpreted By: Jaren Hdez, 11/15/2018 1:11 PM Narrative 11/15/2018 1:24 PM CDT Examination: Bilateral digital diagnostic mammogram with CAD. [id number] Clinical history: Chronic bilateral generalized breast discomfort. [...] the CC and MLO projections. Tissue density: The breast tissue is heterogeneously dense. Findings: The breasts again demonstrate mixed fat and moderately [...] posterior acoustical enhancement nor posterior acoustical shadowing. [place] appearing tissue architecture is otherwise demonstrated. No [...] These findings were discussed with the patient. Eliazar THOMSON MAMMO Final Result from Last 3 Months or Most Recently Relevant to Health Maintenance Insurance [address] [place] [address] MEDICAID Care Teams Collar Cutter Relationship Specialty Start Date End Date Vicente Leger MD [address] [place] [phone] PCP - General FAMILY PRACTICE 11/06/18
--- OUTSIDE RECORDS SUMMARY | 2024-06-27 10:12 | XMS_ITS | Clinical Summary ---
Author Organization [facility] Address [address] [place] [address] Care Team Providers Care Agriculture Research Director Name Role Phone Unavailable Primary Care Provider Unavailabl e Source Comments [facility],non-owned Affiliates and Associated Physician Practices is amultiple site organization consisting of ambulatory clinics and hospital sitesin [place], [place], [place] and [place]. This disclosure is being madepursuant to the Care Everywhere program and may not contain all information available regarding this patient. Last updated 17.[facility] Active Problems Problem Noted Date Diagnosed Date AMA (advanced maternal age) multigravida 35+, first trimester 12/20/2019 Nuchal translucency of fetus on ultraso und 12/20/2019 Social History Tobacco Use Types Packs/Day Years Used Date Smoking Tobacco: Never Assessed Comments No Sex and Gender Information Value Date Recorded Sex Assigned at Not on file Legal Sex Female 2:59 PM CDT Gender Identity Not on file Sexual Orientation Not on file Last Filed Vital Signs Vital Sign Reading Time Taken Comments Blood Pressure - - Pulse - - Temperature 35.9 C (96.7 F) 05/19/2020 8:27 AM OUTBOUND SALES ADVISOR Respiratory Rate - - Oxygen Saturation - [...] SCREENING 1980 LIPID TESTING 1978 MAMMOGRAM 1978 HIV SCREENING 1993 HEPATITIS C SCREENING 11/18/1996 DTAP/TDAP/TD VACCINES (1 - Tdap) 1997 HEPATITIS B VACCINE (1 of 3 - 19+ 3-dose series) 1997 COVID-19 VACCINE (1 - 2023-2 5 season) 2023 DEPRESSION SCREENING 03/13/2024 INFLUENZA VACCINE (Season Ended) 2024 12/05/19 13 ZOSTER VACCINE (1 of 2) 2028 HIB VACCINE Aged Out No longer eligi ble based on patient's age to complete this topic HPV VACCINE Aged Out No longer eligi ble based on patient's age to complete this topic MENINGOCOCCAL (Group B) VACC INE SHARED DECISION-MAKING Aged Out No longer eligibl e based on patient's age to complete this topic MENINGOCOCCAL GROUPS A/C/Y/W VACCINE Aged Out No longer eligible b ased on patient's age to complete this topic PNEUMOCOCCAL VACCINE Aged Out No long er eligible based on patient's age to complete this topic Insurance MEDICAID [employer]NA [employer] [place]
--- OUTSIDE RECORDS SUMMARY | 2024-06-27 10:12 | XMS_ITS | Data Portability ---
Author Organization [facility], [address] ([place]) Address [address] 4th [place] [address] Care Team Providers Care Assistant Wrestling Coach Name Role Phone REY OWENS Primary Care Provider [phone] Assessment Encounter Date Assessment Date Assessment LastModified [...] Call with any concerns 45 minutes spent counseling,cook jelly rdinating care, and documentation, as well as [...] By Organization Details Last Modified Time 07/20/2023 [id number] We discussed the management of patients at [...] 6 months. She can do this in [place]. As long as this imaging is benign [...] unila teral No observ ation record ed. [facility] [address] [place], [address], 02/26/2024 08:58:54 11/17/19 24 11/17/2023 MAMMO , diagn ostic , tomos ynthe sis, unila teral No observ ation record ed. [facility] (Imaging) [address] [place], [address], 11/21/2023 15:58:16 Result Notes None recorded. Problems Name Problem SNOMED Code Status Onset Date Resolution Date Notes Provider Name and Address Organization Details Recorded Time Abnormal findings on diagnostic imaging of breast 152565548 Active 2024 [facility] 5 09:45:25 Cyst of right breast 4371923282725 9102 Active 2023 BETO ARAYA, JEWEL [address] [place] [address], [phone] [place] [address] 4 13:35:20 Problem Notes None recorded. Procedures Surgical History None recorded. Imaging Results Imaging Date Name Status LastModified by Organ [facility] Details LastModified Time 11/17/2023 MAMMO, diagnostic, tomosynthesis, unilateral completed [facility] (Imaging) [address] [place], [address], 11/21/2023 15:58:16 08/18/2023 MAMMO, diagnostic, tomosynthesis, unilateral completed [facility]iology [address] [place], [address], 02/26/2024 08:58:54 Procedure Notes None recorded. Medical [...] t Available Vitals Date Recorded Body weight Systolic blood pressure Diastolic blood pressure Provider Name and Address Organization Details Last Updated DateTime 07/20/2023 32369.03 g 124 mm[Hg] 86 mm[Hg] [facility] 07/20/2023 15:41:36 Social History None recorded. Functional Status None recorded. Mental Status None recorded. Family History Nothing Reported. Medical History No medical history recorded. Gynecological HistoryNo gynecological history recorded. Obstetrics History GPAL:G 0 P 0 0 0 0 Past Encounters Encounter ID Performer Location Encounter Start Date Encounter Closed Date Diagnosis/Indication Diagnosis SNOMED-CT Code Diagnosis ICD10 Code Diagnosis Note [id number] Beti Torres MD, FACS [address] [facility] S[facility] ([place]) [address] [place] [address],[address] [place] [address] 07/20/2023 15:24:41 07/20/2023 16:08:34 Cyst of right breast 7449106680 7920374 N60.01 Health Concerns Section Related Observation LastModified by Organization Nico chavira LastModified Time None Recorded Concern Status LastModified by Organization Details LastModified Time None Recorded Advance Directives Directive None Recorded Payers Encounter Date Sequence Insurance Name Policy Number Policy Gallardo Covered Member ID Gallardo Member ID Guarantor Name 07/20/2023 1 [employer] BETTER [employer] OF [place] - [facility] ON OR AFTER 02/11/2020 (MEDICAID REPLACEMENT - HMO) Destiyn Worley [id number] Destiny Worley Notes Date Note Type Note Provider Name and Address Organization Details Recorded Time 07/20/2023 text/html Destiny is see n today for evaluation of right breast cyst. She had diagnostic right mammogram and ultrasound on 06/15/2023 at [facility] for a follow-up of a [...] radiation therapy, chemotherapy, or autoimmune disorders. Family history:Mother b reast cancer at 52Father c olon cancer at 60Paternal aunt b reast cancer unknown agePaternal uncle l iver/lungPaternal grandfather c olonMaternal aunt b reast 40s BETO ARAYA, SPECIAL EDUCATION ADMINISTRATOR [address] , [place], [address], [place] [facility] 07/23/2023 13:35:50 OBGyn Episode No OBEpisode recorded.
--- OUTSIDE RECORDS SUMMARY | 2024-06-27 10:12 | XMS_ITS | Encounter Summary ---
Author Organization [facility] Address [address] [place] [address] Care Team Providers Care Digital Sales Executive Name Role Phone Vicente Leger MD Primary Care Provider [phone] Encounter Details Date Type Department Care Team (Late st Contact Info) Description 08/18/2018 Abstract SFL CONVERSION [address] [place] [address] , Generic Conversion, Social History Tobacco Use Types Packs/Day Years Used Date Smoking Tobacco: Never Assessed Comments Unknown Sex and Gender Information Value Date Recorded Sex Assigned at Female 03/25/2019 11:01 AM ETHICS MANAGER Legal Sex Female 10:39 PM ETHICS MANAGER Gender Identity Female 03/25/2019 11:01 AM ETHICS MANAGER Sexual Orientation Not on file documented as of this encounter Plan of Treatment Not on file documented as of this encounter Visit Diagnoses Not on filedocumented in this encounter Care Teams Digital Sales Executive Relationship Specialty Start Date End Date Vicente Leger MD [address] [place] [phone] PCP - General FAMILY PRACTICE 11/06/18 documented as of this encounter
--- OUTSIDE RECORDS SUMMARY | 2024-06-27 10:12 | XMS_ITS | Clinical Summary ---
Author Organization [facility] Address [address] [place] [address] Phone Care Team Providers Care Mineral Economist Name Role Phone Eliazar Shelton Primary Care Provider [phone] Allergies No known active allergies Medications sertraline (ZOLOFT) 50 MG Tablet Take 50 mg by mouth daily. 05/16/2019 Active fluticasone (FLONASE) 50 MCG/ACT Suspension 1 [place] by Nasal route daily. 03/16/2019 Active tiZANidine [...] 81 05/30/2019 10:52 AM CDT Temperature 35.9 C (96.7 F) 05/30/2019 10:52 AM CDT Respiratory Rate - - Oxygen Saturation - - Inhaled Oxygen Concentration - - Weight - - Height - - Body Mass Index - - Plan of Treatment Health Maintenance Due Date Last Done Comments Hepatitis C Virus (HCV) Screening 1980 TdaP Immunization 1978 Hepatitis B Immunization (1 of 3 - 19+ 3-dose series) 1997 Influenza Immunization (#1) 2023 01/22/2014 SARS-COV-2 Immunization ( - 2023-25 season) 2023 Colonoscopy 11/24/2023 Colorectal Cancer Screening [...] this topic Insurance MEDICAID AETNA BETTER HEALTH Care Teams Mineral Economist Relationship Specialty Start Date End Date Eliazar Shelton PAC [address] [place] [address] PCP - General Family Medicine 05/30/19
== END 2024-06-27 09:36 | disposition home or self-care (01) ==
LOC: CHSIMG 09:38
PROVIDERS: PCP Registered Nurse
DX: R92.8 Other abnormal and inconclusive findings on diagnostic imaging of breast (principal); S80.00XA Contusion of unspecified knee, initial encounter
CPT/HCPCS: 73562; 76641; 77062; 77066; G0279

== ENCOUNTER 2024-08-03 21:28 | Emergency (ER) | payer OTHER, SELFPAY ==
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
--- OUTSIDE RECORDS SUMMARY | 2024-08-03 21:29 | XMS_ITS | Data Portability ---
Author Organization [facility], [address] Neurology ([place]) Address [address] 4th [place] [address] Care Team Providers Care Drafter Name Role Phone REY OWENS Primary Care [...] Call with any concerns 45 minutes spent counseling,facilities coordinator rdinating care, and documentation, as well as reviewing imaging and recent medical documentation. Not available 07/23/2023 13:33:01 Plan of Treatment Reminders Order Date Submit Date Provider Last Modified By Organization Details Last Modified Time Details Appointments Establish ed Patient 20.EST 2024 10:20A Ghazal Hastings Not available Not available Not available Lab None recorded. Referral None recorded. Procedures None recorded. Surgeries None recorded. Imaging None recorded. Medication Orders None recorded. Patient TargetsNo targets recorded. Patient Instructions Encounter Date Encounter Id Patient Instructions Last Modified By Organization Details Last Modified Time 07/20/2023 [id number] We discussed the management of patients at [...] 6 months. She can do this in [place]. As long as this imaging is benign [...] unila teral No observ ation record ed. [facility] [address] [place], [address], 02/26/2024 08:58:54 11/17/19 24 11/17/2023 MAMMO , diagn ostic , tomos ynthe sis, unila teral No observ ation record ed. [facility] (Imaging) [address] [place], [address], 11/21/2023 15:58:16 Result Notes None recorded. Problems Name Problem SNOMED Code Status Onset Date Resolution Date Notes Provider Name and Address Organization Details Recorded Time Abnormal findings on diagnostic imaging of breast 673177526 Active [address] [facility] 5 09:45:25 Cyst of right breast [id number] 9102 Active 2023 BETO HASTINGS, JEWEL [address], [address] [place] [address] 4 13:35:20 Problem Notes None recorded. Medical Equipment None Reported. [...] Available Vitals Date Recorded Body weight Systolic And Diastolic Provider Name and Address Organization Details Last Updated DateTime 07/20/2023 88513.03 g 124/86 mm[Hg] [facility] 07/20/2023 15:41:36 Social History None recorded. Functional Status None recorded. Mental Status None recorded. Family History Nothing Reported. Medical History No medical history recorded. Gynecological HistoryNo gynecological history recorded. Obstetrics History GPAL:G 0 P 0 0 0 0 Past Encounters Encounter ID Performer Location Encounter Start Date Encounter Closed Date Diagnosis/Indication Diagnosis SNOMED-CT Code Diagnosis ICD10 Code Diagnosis Note [id number] BETO HASTINGS, DIGITAL PRE PRESS OPERATOR [address] Surg ([place]) [address] [place] [address] 07/20/2023 15:24:41 07/20/2023 16:08:34 Cyst of right breast [id number] N60.01 Health Concerns Section Related Observation LastModified by Organization Detai ls LastModified Time None Recorded Concern Status LastModified by Organization Details LastModified Time None Recorded Advance Directives Directive None Recorded Payers Insurance Date Sequence Insurance Name Policy Number Policy Gallardo Covered Member ID Gallardo Member ID Guarantor Name 07/24/2023 1 [employer] [facility] ON OR AFTER 02/11/2020 (MEDICAID REPLACEMENT - HMO) Destiny Worley [id number] Destiny Worley Notes Date Note Type Note Provider Name and Address Organization Details Recorded Time 07/20/2023 text/html Destiny is see n today for evaluation of right breast cyst. She had diagnostic right mammogram and ultrasound on 06/15/2023 [facility] [place] a follow-up of a right breast [...] c olonMaternal aunt b reast 40s BETO HASTINGS, DIGITAL PRE PRESS OPERATOR [address] [place], [address], [place] [facility] 07/23/2023 13:35:50 OBGyn Episode No OBEpisode recorded.
--- OUTSIDE RECORDS SUMMARY | 2024-08-03 21:30 | XMS_ITS | Clinical Summary ---
Author Organization [facility] Address [address] [place] [address] Care Team Providers Care Coal Or Ore Controller Name Role Phone Unavailable Primary Care Provider Unavailabl e Source Comments [facility],non-owned Affiliates and Associated Physician Practices is amultiple site organization consisting of ambulatory clinics and hospital sitesin [place], [place], [place] and [place]. This disclosure is being madepursuant to the Care Everywhere program and may not contain all information available regarding this patient. Last updated 17.[facility] Active Problems Problem Noted Date Diagnosed Date [...] 35.9 C (96.7 F) 05/19/2020 8:27 AM WIRE PULLER Respiratory Rate - - Oxygen Saturation - [...]
--- OUTSIDE RECORDS SUMMARY | 2024-08-03 21:30 | XMS_ITS | Clinical Summary ---
Author Organization [facility] Address [address] [place] [address] Phone Care Team Providers Care Bandage Wrapping Machine Operator Name Role Phone Eliazar Shelton Primary Care Provider [phone] Allergies No known active allergies Medications sertraline (ZOLOFT) 50 MG Tablet Take 50 mg by mouth daily. 05/16/2019 Active fluticasone (FLONASE) 50 MCG/ACT Suspension 1 [place] by Nasal route daily. 03/16/2019 Active tiZANidine [...] Insurance MEDICAID [employer] BETTER HE[employer] Care Teams Bandage Wrapping Machine Operator Relationship Specialty Start Date End Date Eliazar Shelton PAC [address] [place] [address] PCP - General Family Medicine 05/30/19
[2024-08-03 21:31] VITALS: BP 135/93; PULSE 103; RESP 18; TEMP 36.9; O2SAT 99
--- OUTSIDE RECORDS SUMMARY | 2024-08-03 21:50 | XMS_ITS | Clinical Summary ---
Author Organization [facility] Address [address] [place] [address] Phone Care Team Providers Care Application Consultant Name Role Phone Eliazar Shelton Primary Care Provider [phone] Allergies No known active allergies Medications sertraline (ZOLOFT) 50 MG Tablet Take 50 mg by mouth daily. 05/16/2019 Active fluticasone (FLONASE) 50 MCG/ACT Suspension 1 [place] by Nasal route daily. 03/16/2019 Active tiZANidine [...] Insurance MEDICAID [employer] BETTER HE[employer] Care Teams Application Consultant Relationship Specialty Start Date End Date Eliazar Shelton PAC [address] [place] [address] PCP - General Family Medicine 05/30/19
--- OUTSIDE RECORDS SUMMARY | 2024-08-03 21:50 | XMS_ITS | Clinical Summary ---
Author Organization [facility] [employer] Address [address] [place] [place] [address] Care Team Providers Care Gas Station Clerk Name Role Phone Unavailable Primary Care Provider Unavailabl e Source Comments [facility] [employer]non-owned Affiliates and Associated Physician Practices is amultiple site organization consisting of ambulatory clinics and hospital sitesin [place], [place], [place] and [place]. This disclosure is being madepursuant to the Care Everywhere program and may not contain all information available regarding this patient. Last updated 17.[facility] [employer] Active Problems Problem Noted Date Diagnosed Date [...] 35.9 C (96.7 F) 05/19/2020 8:27 AM SENIOR COBOL DEVELOPER Respiratory Rate - - Oxygen Saturation - [...]
--- NOTE | 2024-08-03 22:00 | PC.NURSE ---
patient to imaging via stretcher per cull grader.
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
[2024-08-03] MEDS: KETOROLAC (*BKC) 60 MG/2 ML VIAL IM (22:55)
== END 2024-08-03 23:10 | disposition home or self-care (01) ==
PROVIDERS: Emergency Provider Emergency Medicine; PCP Physician Assistant
DX: S16.1XXA Strain of muscle, fascia and tendon at neck level, initial encounter (principal); F17.210 Nicotine dependence, cigarettes, uncomplicated; V49.40XA Driver injured in collision with unspecified motor vehicles in traffic accident, initial encounter
CPT/HCPCS: 72050; 96372; 99283; J1885

== ENCOUNTER 2024-08-20 16:21 | Outpatient (RCR) | payer MEDICAID, SELFPAY ==
--- NOTE | 2024-08-22 08:27 | OPREHPOC ---
Outpatient Therapy Plan of Care This is a Multidisciplinary Plan of Care that may contain components documented by all disciplines (PT, OT, and ST.) PT Problem 1 PT Problem #1 Knowledge Deficit PT Goal 1 Goal / Goal Update Pt to be independent in HEP Target Visit 6 PT Problem 2 PT Problem #2 Impaired Functional Mobility PT Goal 1 Goal / Goal Update pt to report less than or equal to 20% on the NDI to improve quality of life pt to report no pain after driving 1 or more hours for work related duties Target Visit 12 PT Problem 3 PT Problem #3 Pain PT Goal 1 Goal / Goal Update Pt to report pain no higher than 4/10 Target Visit 12 PT Problem 4 PT Problem #4 Impaired Strength PT Goal 1 Goal / Goal Update Pt to have overall cervical strength of 4+/5 pt to have overall 4+/5 UE strength bilat Target Visit 12 PT Problem 5 PT Problem #5 Impaired Range of Motion PT Goal 1 Goal / Goal Update Pt to have at least 45 degrees of cervical lateral flexion bilat Pt to have at least 70 degrees of cervical rotation bilat Target Visit 12
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
--- NOTE | 2024-09-11 15:12 | PCPTNOTE ---
Cancelled session due to illness.
--- NOTE | 2024-09-16 15:29 | PCPTNOTE ---
Cancelled session today.
--- NOTE | 2024-09-24 16:03 | OPREHPOC ---
Outpatient Therapy Plan of Care This is a Multidisciplinary Plan of Care that may contain components documented by all disciplines (PT, OT, and ST.) PT Problem 1 PT Problem #1 Knowledge Deficit PT Goal 1 Goal / Goal Update Pt to be independent in HEP Target Visit 6 Progress Met PT Problem 2 PT Problem #2 Impaired Functional Mobility PT Goal 1 Goal / Goal Update pt to report less than or equal to 20% on the NDI to improve quality of life -not assessed pt to report no pain after driving 1 or more hours for work related duties -met Target Visit 12 Progress Partially Met PT Problem 3 PT Problem #3 Pain PT Goal 1 Goal / Goal Update Pt to report pain no higher than 4/10 Target Visit 12 Progress Not Met PT Problem 4 PT Problem #4 Impaired Strength PT Goal 1 Goal / Goal Update Pt to have overall cervical strength of 4+/5 pt to have overall 4+/5 UE strength bilat Target Visit 12 Progress Met PT Problem 5 PT Problem #5 Impaired Range of Motion PT Goal 1 Goal / Goal Update Pt to have at least 45 degrees of cervical lateral flexion bilat -met for left, not met for right Pt to have at least 70 degrees of cervical rotation bilat -met Target Visit 12 Progress Partially Met
--- NOTE | 2024-09-24 16:03 | PTOPDC ---
Assessment and note entered by Melida Payan, PT Evaluation Information Assessment Status Discharge Other ICD-10 Condition Codes ( S46.812S PT) Onset 08/15/24 Subjective Information Pt reports her neck and right shoulder pain has improved significantly since initiating PT. She reports she can drive now for longer periods without pain. She has been having more lower back pain recently and that is more painful than her neck. Reported Pain Level Pain Score 3: Self Report Assessment PT Clinical Summary Destiny Worley has completed 9 skilled PT visits for cervical and right shoulder pain. She is reporting a significant reduction in her pain and she has been able to drive for longer distances without pain as well. She is noting lower back pain that is worse than her neck pain now. She demonstrates improved cervical AROM, improved cervical strength, improved shoulder strength, and improved posture. She is independent in a home exercise program to continue. We will discharge her from skilled PT for her cervical spine and will initiate PT for her lumbar spine next visit. Plan of Care PT Services Indicated No
== END 2024-09-24 16:44 | disposition home or self-care (01) ==
LOC: CHSPT 16:21
PROVIDERS: Visit Provider Family Medicine
DX: S46.812S Strain of other muscles, fascia and tendons at shoulder and upper arm level, left arm, sequela (principal)
CPT/HCPCS: 97014; 97110; 97112; 97140; 97161; G0283

== ENCOUNTER 2024-10-08 14:45 | Outpatient (CLI) | payer OTHER, SELFPAY ==
--- OUTSIDE RECORDS SUMMARY | 2024-10-08 14:53 | XMS_ITS | Clinical Summary ---
Author Organization [facility] [employer] Address [address] [place] [address] Care Team Providers Care Senior Quality Assurance Analyst Name Role Phone Unavailable Primary Care Provider Unavailabl e Source Comments [facility] [employer],non-owned Affiliates and Associated Physician Practices is amultiple site organization consisting of ambulatory clinics and hospital sitesin [place], [place], [place] and [place]. This disclosure is being madepursuant to the Care Everywhere program and may not contain all information available regarding this patient. Last updated 17.[facility] [employer] Active Problems Problem Noted Date Diagnosed Date [...] 35.9 C (96.7 F) 05/19/2020 8:27 AM HEAD GRINDER Respiratory Rate - - Oxygen Saturation - [...] of 3 - 19+ 3-dose series) 1997 HPV VACCINE (1 - 3-dose SCDM series) 2005 COVID-19 VACCINE (1 - 2023-2 5 season) 2023 DEPRESSION SCREENING 03/13/2024 INFLUENZA VACCINE (#1) 2024 12/04/2012 ZOSTER VACCINE (1 of 2) 2028 HIB [...]
--- OUTSIDE RECORDS SUMMARY | 2024-10-08 14:53 | XMS_ITS | Encounter Summary ---
Author Organization [facility] Address [address] [place] [address] Care Team Providers Care Pet Sitting Name Role Phone Vicente Leger MD Primary Care Provider Encounter Details Date Type Department Care Team (Late st Contact Info) Description 08/18/2018 Abstract [facility] CONVERSION [address] [address] , Generic Conversion, Social History Tobacco Use Types Packs/Day Years Used Date Smoking Tobacco: Never Assessed Comments Unknown Sex and Gender Information Value Date Recorded Sex Assigned at Female 03/25/2019 11:01 AM PONDMAN Legal Sex Female 10:39 PM PONDMAN Gender Identity Female 03/25/2019 11:01 AM PONDMAN Sexual Orientation Not on file documented as of this encounter Plan of Treatment Not on file documented as of this encounter Visit Diagnoses Not on filedocumented in this encounter Care Teams Pet Sitting Relationship Specialty Start Date End Date Vicente Leger MD [address] [place] [phone] PCP - General FAMILY PRACTICE 11/06/18 documented as of this encounter
--- OUTSIDE RECORDS SUMMARY | 2024-10-08 14:53 | XMS_ITS | Clinical Summary ---
Author Organization [facility] Address [facility] [place] [address] Care Team Providers Care Wireless Store Manager Name Role Phone Vicente Leger MD Primary Care Provider Allergies No known active allergies Medications meloxicam 15 MG tablet Take 15 mg by mouth daily. 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 Overview (11/30/2018): Added automatically from request for surgery [id number] Thrombosed external hemorrhoids 06/07/2016 Cervical radiculopathy 04/28/2015 [...] Sex Assigned at Female 03/25/2019 11:01 AM SENIOR ADVOCATE Legal Sex Female 10:39 PM SENIOR ADVOCATE Gender Identity Female 03/25/2019 11:01 AM SENIOR ADVOCATE Sexual Orientation Not on file Last Filed [...] 5:19 PM CDT Height 162.6 cm (5' 4) 12/25/2018 5:19 PM CDT Body Mass Index 29.18 12/25/2018 5:19 PM CDT Plan of Treatment Health Maintenance Due Date Last Done Comments Cervical Cancer Screening Pa p Smear (Age 30 to 64) Every 3 Years 1978 Colorectal Cancer Screening Colonoscopy (10 Years) 1978 Annual Physical 1981 Hepatitis C 1996 DTaP, Tdap and Td Vaccines ( 1 - Tdap) 1997 Hepatitis B Vaccines (1 of 3 - 19+ 3-dose series) 1997 Pneumococcal Vaccine: Pediat rics (0 to 5 Years) and At-Risk Patients (6 to 49 Years) (1 of 2 - PCV) 1997 HPV Vaccines (1 - 3-dose SCD M series) 2005 Cervical Cancer Screening Pa p with HPV Testing (Age 30 to 64) Every 5 Years 2008 Cervical Cancer Screening with HPV 2008 Mammogram Screening 11/15/2020 11/15/2018 COVID-19 Vaccine (2023-2 5 season) 2023 Meningococcal B Vaccine Aged Out No l [...] Examination: Bilateral digital diagnostic mammogram with CAD. [id number] Clinical history: Chronic bilateral generalized breast discomfort. [...] posterior acoustical enhancement nor posterior acoustical shadowing. [place] appearing tissue architecture is otherwise demonstrated. No [...] [address] [place] [address] MEDICAID Care Teams Wireless Store Manager Relationship Specialty Start Date End Date Vicente Leger MD [address] [place] [phone] PCP - General FAMILY PRACTICE 11/06/18
--- OUTSIDE RECORDS SUMMARY | 2024-10-08 14:53 | XMS_ITS | Data Portability ---
Author Organization [facility], [address] [facility] ([place]) Address [address] 4th [place] [address] Care Team Providers Care Lumber Sales Supervisor Name Role Phone REY OWENS Primary Care [...] with any concerns 45 minutes spent counseling,cook specialty rdinating care, and documentation, as well as reviewing imaging and recent medical documentation. Not available 07/23/2023 13:33:01 Plan of Treatment Reminders Order Date Submit Date Provider Last Modified By Organization Details Last Modified Time Details Appointments Establish ed Patient 20.EST 2024 09:40A Ghazal Hastings Not available Not available Not available Lab None recorded. Referral None recorded. Procedures None recorded. Surgeries None recorded. Imaging None recorded. Medication Orders None recorded. Patient TargetsNo targets recorded. Patient Instructions Encounter Date Encounter Id Patient Instructions Last Modified By Organization Details Last Modified Time 07/20/2023 [id number] We discussed the management of patients at [...] 6 months. She can do this in [place]. As long as this imaging is benign [...] unila teral No observ ation record ed. [facility] [address] [place], [address], 02/26/2024 08:58:54 11/17/19 24 11/17/2023 MAMMO , diagn ostic , tomos ynthe sis, unila teral No observ ation record ed. [facility] (Imaging) [address] [place], [address], 11/21/2023 15:58:16 09/12/19 25 06/27/2024 MAMMO , diagn ostic , bilat eral No observ ation record ed. [facility] [address] [place], [address], 09/12/2024 09:09:59 09/28/19 25 07/29/2024 MAMMO , diagn ostic , tomos ynthe sis, bilat eral No observ ation record ed. [email or web address] Not Available 10/04 12:07:33 Result Notes None recorded. Problems Name Problem SNOMED Code Status Onset Date Resolution Date Notes Provider Name and Address Organization Details Recorded Time Cyst of right breast 2749400565598 9102 Active 2023 BETO HASTINGS, [employer] [address] [place] [address], [phone], [facility] 4 13:35:20 Abnormal findings on diagnostic imaging of breast 068739649 Active 2024 [facility] 09:45:25 Problem Notes None recorded. Medical Equipment None Reported. Medications Name Sig Start Date Stop Date Status Note LastModified by Organization Details LastModified Time cyclobenzap rine 10 mg tablet TAKE 1 TABLET BY MOUTH THREE TIMES DAILY NEEDED FOR MUSCLE SPASM active Not Available Not Available No t Available amoxicillin 500 mg capsule TAKE 1 CAPSULE BY MOUTH THREE TIMES DAILY 08/23 completed Not Available Not Available Not Available fluconazole 200 mg tablet TAKE ONE TABLET BY MOUTH TODAY, THEN TAKE ONE TABLET IN 3 DAYS active Not Available Not Available No t Available clindamycin HCl 150 mg capsule TAKE 3 CAPSULES BY MOUTH THREE TIMES DAILY FOR 7 DAYS 08/23 completed Not Available Not Available Not Available sulfamethox azole 800 mg-trimetho prim 160 mg tablet TAKE 1 TABLET BY MOUTH TWICE DAILY 08/23 completed Not Available Not Available Not Available triamcinolo ne acetonide 0.1 % topical cream APPLY CREAM TO AFFECTED SKIN DAILY active Not Available Not Available No t Available meloxicam 7.5 mg tablet TAKE 1 TABLET BY MOUTH ONCE DAILY WITH FOOD active Not Available Not Available No t Available tamsulosin 0.4 mg capsule TAKE 1 CAPSULE BY MOUTH ONCE DAILY active Not Available Not Available No t Available tobramycin 0.3 % eye drops INSTILL 1 TO 2 DROPS INTO RIGHT EYE EVERY 4 HOURS 08/23 completed Not Available Not Available Not Available dexamethaso ne 4 mg tablet TAKE 1 TABLET BY MOUTH THREE TIMES DAILY active Not Available Not Available No t Available methylpredn isolone 4 mg tablets in a dose pack TAKE DIRECTED active Not Available Not Available No t Available sertraline 50 mg tablet TAKE 1 TABLET BY MOUTH ONCE DAILY active Not Available Not Available No t Available naproxen 500 mg tablet TAKE 1 TABLET BY MOUTH TWICE DAILY active Not Available Not Available No t Available amoxicillin 875 mg-potassiu m clavulanate 125 mg tablet TAKE 1 TABLET BY MOUTH TWICE DAILY 08/23 completed Not Available Not Available Not Available amoxicillin 500 mg-potassiu m clavulanate 125 mg tablet TAKE 1 TABLET BY MOUTH THREE TIMES DAILY active Not Available Not Available No t Available cyclobenzap rine 5 mg tablet TAKE 1 TABLET BY MOUTH THREE TIMES DAILY NEEDED active Not Available Not Available No t Available Natroba 0.9 % topical suspension APPLY 120 ML TO AFFECTED SKIN EVERY 7 DAYS FOR 2 DOSES active Not Available Not Available No t Available Vitals Date Recorded Body weight Systolic And Diastolic Provider Name and Address Organization Details Last Updated DateTime 07/20/2023 23006.03 g 124/86 mm[Hg] Padmini Feliciano [facility] 07/20/2023 15:41:36 Social History None recorded. Functional Status None recorded. Mental Status None recorded. Family History Nothing Reported. Medical History No medical history recorded. Gynecological HistoryNo gynecological history recorded. Obstetrics History GPAL:G 0 P 0 0 0 0 Past Encounters Encounter ID Performer Location Encounter Start Date Encounter Closed Date Diagnosis/Indication Diagnosis SNOMED-CT Code Diagnosis ICD10 Code Diagnosis Note [id number] BETO HASTINGS, [employer] [address] [facility] ([place]) [address] [place] [address] 07/20/2023 15:24:41 07/20/2023 16:08:34 Cyst of right breast [id number] 2272491 N60.01 Health Concerns Section Related Observation LastModified by Organization Detai ls LastModified Time None Recorded Concern Status LastModified by Organization Details LastModified Time None Recorded Advance Directives Directive None Recorded Payers Insurance Date Sequence Insurance Name Policy Number Policy Gallardo Covered Member ID Gallardo Member ID Guarantor Name 08/22/2024 1 [employer] [place] AFTER 2020 (MEDICAID REPLACEMENT - HMO) Destiny Worley [id number] Destiny Worley 09/16/2024 1 [employer] ([place] REPLAC[place] - [place]MO) Destiny Worley [id number] Destiny Worley 09/16/2024 1 [place] DEPARTMENT OF PUBLIC AID Destiny Worley [id number] Destiny Worley OBGyn Episode No OBEpisode recorded.
--- OUTSIDE RECORDS SUMMARY | 2024-10-08 14:53 | XMS_ITS | Clinical Summary ---
Author Organization [facility] Address [address] [place] [address] Phone Care Team Providers Care Sprayer Machine Name Role Phone Eliazar Shelton Primary Care Provider [phone] Allergies No known active allergies Medications sertraline (ZOLOFT) 50 MG Tablet Take 50 mg by mouth daily. 05/16/2019 Active fluticasone (FLONASE) 50 MCG/ACT Suspension 1 [place] by Nasal route daily. 03/16/2019 Active tiZANidine [...] Virus (HCV) Screening 1978 TdaP Immunization 1978 Human Papillomavirus (HPV) Immunization (1 - 3-dose series) 1993 Hepatitis B Immunization (1 of 3 - 19+ 3-dose series) 1997 Pap Smear 11/24/1999 Cervical Cancer Screening (CCS) 2008 HPV/Cotest 2008 SARS-COV-2 Immunization (2023- season) 2023 Cologuard 11/24/2023 Colonoscopy 11/24/2023 Colorectal Cancer Screening 11/24/2023 Immunochemical Fecal Occult Blood 11/24/2023 Influenza Immunization (#1) 2024 01/22/2014 Respiratory Syncytial Virus (RSV) Immunization (Adult) (1 [...] to complete this topic Insurance MEDICAID AETNA [facility] Care Teams Sprayer Machine Relationship Specialty Start Date End Date Eliazar Shelton, [facility] [address] [place] [phone] PCP - General Family Medicine 05/30/19
[2024-10-08 15:01] LABS: Hematocrit 42.6 % (35.0-49.0); Hemoglobin 14.5 g/dL (12.0-15.0); Immature Granulocyte Percent A 0.4 % (0.0-0.0); Lymphocytes Absolute Auto 1.88 K/mm3 (1.10-4.50); Mean Corpuscular HGB Conc 34.0 g/dL (32-36); Mean Corpuscular Hemoglobin 30.7 pg (27.0-31.0); Mean Corpuscular Volume 90.3 fL (78.0-102.0); Nucleated Red Blood Cells Absolute Auto 0.00 K/mm3 (0.00-0.00); Nucleated Red Blood Cells Perc 0.0 % (0-0.0); Platelet Count Result 240 K/mm3 (150-420); Red Blood Count 4.72 M/mm3 (4.20-5.40); White Blood Count 5.3 K/mm3 (4.8-10.8)
[2024-10-08 15:39] LABS: Alanine Aminotransferase 22 U/L (6-35); Albumin Level 4.1 g/dL (3.5-5.1); Alkaline Phosphatase 70 U/L (38-126); Anion Gap 3 mmol/L (4-12); Aspartate Amino Transferase 26 U/L (14-36); Bilirubin,Total 0.5 mg/dL (0.2-1.3); Blood Urea Nitrogen 5 mg/dL (7-17); Calcium 9.0 mg/dL (8.4-10.2); Carbon Dioxide 28 mmol/L (22-30); Chloride 107 mmol/L (98-107); Cholesterol 187 mg/dL (0-200); Estimated Glomerular Filt Rate > 60; Glucose 112 mg/dL (65-110); HDL Direct 48 mg/dL; Osmolality Calculated 284 mOsm/kg (285-295); Potassium 3.9 mmol/L (3.4-5.0); Sodium 138 mmol/L (137-145); Total Protein 6.7 g/dL (6.3-8.2); Triglycerides 149 mg/dL (<150)
[2024-10-08 16:10] LABS: Thyroid Stimulating Hormone 1.290 uIU/mL (0.465-4.680)
[2024-10-08 16:29] LABS: Vitamin B12 187.0 pg/mL (239-931)
== END 2024-10-08 14:46 | disposition home or self-care (01) ==
LOC: CHSLAB 14:47
PROVIDERS: PCP Physician Assistant; Visit Provider Physician Assistant
DX: G62.9 Polyneuropathy, unspecified (principal); E78.00 Pure hypercholesterolemia, unspecified; Z13.21 Encounter for screening for nutritional disorder
CPT/HCPCS: 36415; 80053; 80061; 82306; 82607; 84443; 85025

== ENCOUNTER 2024-11-06 15:55 | Emergency (ER) | payer OTHER, SELFPAY ==
--- NOTE | ~2024-11-06 | XR_ITS ---
EXAMINATION: XR ankle LT min 3V DATE: 11/06/2024 16:30 INDICATION: Left ankle pain TECHNIQUE: Anteroposterior, oblique, mortise, and lateral views of the left ankle were obtained. COMPARISON: None. FINDINGS: Minimally displaced avulsion fracture at the distal tip at the lateral malleolus. No other fractures identified. Specifically the medial and posterior malleoli remain intact. Alignment remains near-anatomic with a congruent ankle mortise and widening of the medial clear space or significant soft tissue swelling about the medial malleolus to suggest associated deltoid ligament injury. Joint spaces are normal. Small to moderate-sized Achilles and plantar calcaneal spurs. Soft tissue swelling about the lateral malleolus. IMPRESSION: 1. . Minimally displaced transverse fracture of the distal tip of the lateral malleolus consistent with a Leger type A injury pattern. Reviewed, dictated and finalized at location A. IMPRESSION: 1. . Minimally displaced transverse fracture of the distal tip of the lateral m alleolus consistent with a Leger type A injury pattern.
[2024-11-06 15:55] VITALS: BP 130/92; PULSE 102; RESP 16; TEMP 36.9; O2SAT 100
--- OUTSIDE RECORDS SUMMARY | 2024-11-06 15:59 | XMS_ITS | Clinical Summary ---
Author Organization [facility] Address Counts include 234 beds at the [facility] [place] [address] Care Team Providers Care Padded Products Finisher Name Role Phone Vicente Leger MD Primary Care Provider Allergies No known active allergies Medications meloxicam 15 MG tablet Take 15 mg by mouth daily. 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 [id number] Clinical history: Chronic bilateral generalized breast discomfort. [...] posterior acoustical enhancement nor posterior acoustical shadowing. [place] appearing tissue architecture is otherwise demonstrated. No [...] [address] [place] [address] MEDICAID Care Teams Padded Products Finisher Relationship Specialty Start Date End Date Vicente Leger MD [address] [place] [phone] PCP - General FAMILY PRACTICE 11/06/18
--- OUTSIDE RECORDS SUMMARY | 2024-11-06 15:59 | XMS_ITS | Clinical Summary ---
Author Organization [facility] Address [address] [place] [address] Phone Care Team Providers Care Christian Education Director Name Role Phone Eliazar Shelton Primary Care Provider [phone] Allergies No known active allergies Medications sertraline (ZOLOFT) 50 MG Tablet Take 50 mg by mouth daily. 05/16/2019 Active fluticasone (FLONASE) 50 MCG/ACT Suspension 1 [place] by Nasal route daily. 03/16/2019 Active tiZANidine [...] 19+ 3-dose series) 1997 Pap Smear 11/24/1999 Human Papillomavirus (HPV) Immunization (1 - 3-dose SCDM series) 2005 Cervical Cancer Screening (CCS) 2008 HPV/Cotest 2008 SARS-COV-2 Immunization ( season) 2023 Cologuard 11/24/2023 Colonoscopy 11/24/2023 Colorectal [...] to complete this topic Insurance MEDICAID AETNA [facility] Care Teams Christian Education Director Relationship Specialty Start Date End Date Eliazar Shelton, PAC [address] [place] [address] PCP - General Family Medicine 05/30/19
--- OUTSIDE RECORDS SUMMARY | 2024-11-06 15:59 | XMS_ITS | Clinical Summary ---
Author Organization [facility] Address [address] [place] [address] Care Team Providers Care Fixture Builder Name Role Phone Unavailable Primary Care Provider Unavailabl e Source Comments [facility],non-owned Affiliates and Associated Physician Practices is amultiple site organization consisting of ambulatory clinics and hospital sitesin [place], [place], [place] and [place]. This disclosure is being madepursuant to the Care Everywhere program and may not contain all information available regarding this patient. Last updated 17.[facility] Active Problems Problem Noted Date Diagnosed Date [...] 35.9 C (96.7 F) 05/19/2020 8:27 AM APPRENTICE TECHNICIAN Respiratory Rate - - Oxygen Saturation - [...]
--- OUTSIDE RECORDS SUMMARY | 2024-11-06 15:59 | XMS_ITS | Encounter Summary ---
Author Organization [facility] Address [address] [place] [address] Care Team Providers Care Medical Case Worker Name Role Phone Vicente Leger MD Primary Care Provider Encounter Details Date Type Department Care Team (Late st Contact Info) Description 08/18/2018 Abstract SFL CONVERSION [address] [place] [address] , Generic Conversion, Social History Tobacco Use Types Packs/Day Years Used Date Smoking Tobacco: Never Assessed Comments Unknown Sex and Gender Information Value Date Recorded Sex Assigned at Female 03/25/2019 11:01 AM TUBE CUTTER OPERATOR Legal Sex Female 10:39 PM TUBE CUTTER OPERATOR Gender Identity Female 03/25/2019 11:01 AM TUBE CUTTER OPERATOR Sexual Orientation Not on file documented as of this encounter Plan of Treatment Not on file documented as of this encounter Visit Diagnoses Not on filedocumented in this encounter Care Teams Medical Case Worker Relationship Specialty Start Date End Date Vicente Leger MD [address] [place] [phone] PCP - General FAMILY PRACTICE 11/06/18 documented as of this encounter
--- NOTE | 2024-11-06 16:08 | ED_ITS ---
HPI - Extremity Injury (Lower) General Chief Complaint: Extremity Injury, Lower Stated Complaint: fall ankle pain Time Seen by Provider: 11/06/24 16:05 Source: patient Mode of arrival: EMS Limitations: no limitations History of Present Illness HPI Narrative: 43-year-old female fibromyalgia slipped while coming down the steps and twisted her left ankle. She presents via EMS with -- pain and swelling around the left lateral malleolus. Unable to bear weight. she heard a pop when a ankle twisted. No other injuries noted . Patient has chronic low back pain MD complaint: ankle injury Onset (ago): hour(s) ( 1 hour ago) Injury: Left: ankle Type of Injury: inversion Place: home Severity: severe Relieving factors: immobilization Exacerbating factors: movement Context: fall Other symptoms: none Related Data Allergies Allergy/AdvReac Type Severity Reaction Status Date / Time No Known Allergies Allergy Unknown Verified 08/03/24 23:09 Review of Systems Review of Systems: All systems reviewed & are unremarkable except as noted in HPI and below PMFSH Past Medical History Medical History Conjunctivitis Surgical History Surgical History History of appendectomy History of Family History Family History Mother Breast cancer Father Rectal cancer Grandparent Diabetes mellitus Social History Social History Smoking packs per day: 1 Smoking cigarettes per day: 20.0 Smoking status: Current every day smoker Tobacco type: cigarettes Substance use: never Gender identity (if verbalized by the patient): Female Spiritual care concerns: No Exam Narrative: blood pressure 130/92 Const: General: no acute distress Orientation/consciousness: patient oriented x3 Limitations: no limitations HENMT: Head: normal to inspection Ears: external ears normal Face/Nose/Sinus: Normal external nose present Face and sinus: normal facial exam Mouth: Yes Normal oral and palatal mucosa present Throat: posterior oropharynx normal Eyes: Conjunctivae: conjunctivae normal Pupils: Equal, round and reactive pupils present EOM: EOMs intact bilaterally Direct Ophthalmoscopy: no photophobia Neck: Neck: normal visual inspection, no lymphadenopathy and no meningeal signs Chest: Chest palpation & inspection: normal inspection of the chest Resp: Effort & Inspection: normal respiratory effort Auscultation: clear to auscultation bilaterally Cardio: Rate: regular rate Rhythm: regular rhythm GI: GI Palp: Yes Soft to palpation Auscultation: normal bowel sounds Other: no tenderness/rigidity /rebound : General: Yes no CVA tenderness Back/Spine/Pelvis: Back: no CVA tenderness Skin: General skin exam: normal color Rashes: no rashes Wounds: no wounds Neuro: General: patient oriented x3, moves all extremities, no meningeal signs, no focal motor deficits and CN's II-XI intact bilaterally Cranial nerves: Yes Nystagmus not present Speech: normal speech Extrem: General: no clubbing, cyanosis or edema Other: left ankle-- swelling around the lateral malleolus. Sprain of the lateral collateral ligament of the ankle. No tenderness over the foot /calcaneus distal neurovascular bundle is intact. Psych: Mental Status: mental status grossly normal Affect: normal affect Attitude: cooperative Course Course Emergency Course: accidental fall fracture of distal tip of the lateral malleolus-- will place the short-leg posterior splint. Nonweightbearing will have the patient follow-up with ortho specialist. after placing posterior leg splint and a sugar-tong, the distal neurovascular bundle lobe was noted to be intact Vital Signs Vital signs: Vital Signs Temperature 36.9 C 11/06/24 15:55 Pulse Rate 102 H 11/06/24 15:55 Respiratory Rate 16 11/06/24 15:55 Blood Pressure 130/92 H 11/06/24 15:55 Pulse Oximetry 100 11/06/24 15:55 Oxygen Delivery Room Air 11/06/24 15:55 Temperature 36.9 C 11/06/24 15:55 Pulse Rate 102 H 11/06/24 15:55 Respiratory Rate 16 11/06/24 15:55 Blood Pressure 130/92 H 11/06/24 15:55 Pulse Oximetry 100 11/06/24 15:55 Oxygen Delivery Room Air 11/06/24 15:55 MDM - Extremity Injury (Lower) MDM Narrative Medical decision making narrative: fracture lateral malleolus of the left leg Differential Diagnosis Differential diagnosis: Likely ankle fracture Lab Data Attestation: I reviewed the patient's lab results. Discharge Plan Discharge Clinical Impression: Ankle fracture, lateral malleolus, closed Qualifiers: Encounter type: initial encounter Fracture alignment: nondisplaced Laterality: left Qualified Code(s): S82.65XA - Nondisplaced fracture of lateral malleolus of left fibula, initial encounter for closed fracture Patient Disposition: Home Condition: Stable Instructions: Antibiotic Form, Ankle Dislocation (ED) Additional Instructions: follow-up with ortho specialist. Patient Language: [place] Citizen Prescriptions: New (DME) crutches See Rx Instructions .Route .MEDSUPPLY Qty: 1 0RF Rx Instructions: As directed meloxicam 7.5 mg tablet 7.5 mg PO DAILY Qty: 14 0RF No Action cyclobenzaprine 10 mg tablet 10 mg PO TID PRN (Reason: muscle spasm) Qty: 20 0RF dexamethasone 4 mg tablet 4 mg PO TID Qty: 15 0RF naproxen 500 mg tablet 500 mg PO BID Qty: 14 0RF cyclobenzaprine 5 mg tablet 5 mg PO TID Qty: 20 0RF Follow-up/Referrals: Nikita,LEISA Perea [Primary Care Provider] Time of Disposition: 17:40
[2024-11-06] MEDS: KETOROLAC 30 MG/ML VIAL (*BKC) IM (16:25)
--- OUTSIDE RECORDS SUMMARY | 2024-11-06 16:47 | XMS_ITS | Clinical Summary ---
Author Organization [facility] Address [address] [place] [address] Care Team Providers Care Type Inspector Name Role Phone Unavailable Primary Care Provider Unavailabl e Source Comments [facility],non-owned Affiliates and Associated Physician Practices is amultiple site organization consisting of ambulatory clinics and hospital sitesin [place], [place], [place] and [place]. This disclosure is being madepursuant to the Care Everywhere program and may not contain all information available regarding this patient. Last updated 17.[facility] Active Problems Problem Noted Date Diagnosed Date [...] 35.9 C (96.7 F) 05/19/2020 8:27 AM MANAGER LIFE Respiratory Rate - - Oxygen Saturation - [...]
--- OUTSIDE RECORDS SUMMARY | 2024-11-06 16:47 | XMS_ITS | Clinical Summary ---
Author Organization [facility] Address [facility] [place] [address] Care Team Providers Care Hogshead Opener Name Role Phone Vicente Leger MD Primary Care Provider Allergies No known active allergies Medications meloxicam 15 MG tablet Take 15 mg by mouth daily. 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 [id number] Clinical history: Chronic bilateral generalized breast discomfort. [...] posterior acoustical enhancement nor posterior acoustical shadowing. [place] appearing tissue architecture is otherwise demonstrated. No [...] [address] [place] [address] MEDICAID Care Teams Hogshead Opener Relationship Specialty Start Date End Date Vicente Leger MD [address] [place] [phone] PCP - General FAMILY PRACTICE 11/06/18
--- OUTSIDE RECORDS SUMMARY | 2024-11-06 16:47 | XMS_ITS | Encounter Summary ---
Author Organization [facility] Address [address] [place] [address] Care Team Providers Care Web Content Writer Name Role Phone Vicente Leger MD Primary Care Provider Encounter Details Date Type Department Care Team (Late st Contact Info) Description 08/18/2018 Abstract SFL CONVERSION [address] [place] [address] , Generic Conversion, Social History Tobacco Use Types Packs/Day Years Used Date Smoking Tobacco: Never Assessed Comments Unknown Sex and Gender Information Value Date Recorded Sex Assigned at Female 03/25/2019 11:01 AM MAINTENANCE TEAM LEADER Legal Sex Female 10:39 PM MAINTENANCE TEAM LEADER Gender Identity Female 03/25/2019 11:01 AM MAINTENANCE TEAM LEADER Sexual Orientation Not on file documented as of this encounter Plan of Treatment Not on file documented as of this encounter Visit Diagnoses Not on filedocumented in this encounter Care Teams Web Content Writer Relationship Specialty Start Date End Date Vicente Leger MD [address] [place] [phone] PCP - General FAMILY PRACTICE 11/06/18 documented as of this encounter
[2024-11-06] MEDS: ONDANSETRON HCL ODT 4 MG TABLET PO (17:45)
[2024-11-06] MEDS: HYDROmorphone HCL INJ (*CRX) 2 MG/ML VIAL 0.5 MG IM (17:45)
[2024-11-06 17:52] VITALS: BP 124/89; PULSE 99; RESP 18; TEMP 36.8; O2SAT 99
== END 2024-11-06 18:05 | disposition home or self-care (01) ==
PROVIDERS: Emergency Provider Internal Medicine Critical Care Medicine; PCP Physician Assistant
DX: S82.65XA Nondisplaced fracture of lateral malleolus of left fibula, initial encounter for closed fracture (principal); F17.210 Nicotine dependence, cigarettes, uncomplicated; W01.0XXA Fall on same level from slipping, tripping and stumbling without subsequent striking against object, initial encounter
CPT/HCPCS: 29515; 73610; 96372; 99284; A9270; J1171; J1885

== ENCOUNTER 2024-12-11 09:00 | Outpatient (RCR) | payer OTHER, SELFPAY ==
--- NOTE | 2024-11-25 16:43 | OPREHPOC ---
Outpatient Therapy Plan of Care This is a Multidisciplinary Plan of Care that may contain components documented by all disciplines (PT, OT, and ST.) PT Problem 1 PT Problem #1 Knowledge Deficit PT Goal 1 Goal / Goal Update independent and compliant with HEP Target Visit 6 PT Problem 2 PT Problem #2 Pain PT Goal 1 Goal / Goal Update decrease pain at worst to 2/10 or less Target Visit 12 PT Problem 3 PT Problem #3 Impaired Strength PT Goal 1 Goal / Goal Update 5/5 L ankle strength Target Visit 12 PT Problem 4 PT Problem #4 Impaired Safety Awareness PT Goal 1 Goal / Goal Update LEFS to display 30% or less functional deficits patient to ambulate with normal gait mechanics and no boot or AD patient to ambulate up and down steps with reciprocal mechanics Target Visit 12 PT Problem 5 PT Problem #5 Impaired Range of Motion PT Goal 1 Goal / Goal Update 10 degrees or better L ankle DF 50 degrees or better L ankle PF 30 degrees or better L ankle IV 10 degrees or better L ankle EV Target Visit 12
--- NOTE | 2024-11-25 16:43 | PTOPEVAL1 ---
Assessment and note entered by JT File, PT Evaluation Information Assessment Status Evaluation Subjective Information patient reports she slipped down the steps at her moms house and had a lateral ankle fracture of the L LE. she reports this occurred on 11/06/24. she reports she was told not to put any weight on the L LE even when in the boot. she reports she is coming therapy for rehab of the ankle. she reports she did try and stand with the boot on one time and it was severely painful. Reported Pain Level Pain Score 8: Self Report Assessment PT Clinical Summary mrs. kelsey presents to skilled PT services for evaluation and treatment of L ankle pain and functional deficits from ankle fracture about 2-3 weeks ago. she is currently limited in strength, rom, and weight bearing/ambulation. continued skilled PT is indicated to improved patients objective/functional deficits and progress towards return to her prior level functional activity performance/quality of life. Plan of Care Interventions Gait Training,Hot Pack/Cold Pack,Intermittent Compression Pump,Manual Therapy,Neuro Re-education ,Patient/Caregiver Education,Therapeutic Activities,Therapeutic Exercise PT Services Indicated Yes Treatment Frequency and 2x weekly for 12 visits Duration These treatments will address the objective and functional deficits as defined above. The patient will be advanced safely and appropriately in order for the patient to progress towards his/her prior level of function. Additional exercises will be introduced and as well as a comprehensive home exercise program upon discharge, if needed, ?to ensure carryover of functional gains achieved in the clinic. This treatment plan has been reviewed and agreement upon by the patient.
--- NOTE | 2024-12-31 16:49 | OPREHPOC ---
Outpatient Therapy Plan of Care This is a Multidisciplinary Plan of Care that may contain components documented by all disciplines (PT, OT, and ST.) PT Problem 1 PT Problem #1 Knowledge Deficit PT Goal 1 Goal / Goal Update independent and compliant with HEP Target Visit 6 Progress Met PT Problem 2 PT Problem #2 Pain PT Goal 1 Goal / Goal Update decrease pain at worst to 2/10 or less -continue Target Visit 12 Progress Not Met PT Problem 3 PT Problem #3 Impaired Strength PT Goal 1 Goal / Goal Update 5/5 L ankle strength -continue Target Visit 12 Progress Not Met PT Problem 4 PT Problem #4 Impaired Safety Awareness PT Goal 1 Goal / Goal Update LEFS to display 30% or less functional deficits patient to ambulate with normal gait mechanics and no boot or AD patient to ambulate up and down steps with reciprocal mechanics -continue all Target Visit 12 Progress Not Met PT Problem 5 PT Problem #5 Impaired Range of Motion PT Goal 1 Goal / Goal Update 10 degrees or better L ankle DF -not met, continue 50 degrees or better L ankle PF -met 30 degrees or better L ankle IV -met 10 degrees or better L ankle EV -met Target Visit 12 Progress Partially Met
--- NOTE | 2024-12-31 16:49 | PTOPPROG ---
Assessment and note entered by Melida Payan, PT Evaluation Information Assessment Status Progress Onset 11/20/24 Subjective Information Patient reports her left ankle is still sore. She has been on her feet more the last few days and her pain is a 7/10 today. She also notes increased swelling. She does not have a follow up with her doctor at this time. Assessment PT Clinical Summary Destiny Worley has completed 10 skilled PT visits for L ankle pain and functional deficits from an ankle fracture. She is now approximately 6 weeks out. She demonstrates improved left ankle AROM. She continues to have decreased left ankle strength, tenderness noted at the left lateral malleolus, altered gait, and decreased balance. She will continue to benefit from skilled PT to further address these limitations and return to her prior level functional activity performance/ quality of life. Plan of Care Interventions Gait Training,Hot Pack/Cold Pack,Intermittent Compression Pump,Manual Therapy,Neuro Re-education ,Patient/Caregiver Education,Therapeutic Activities,Therapeutic Exercise PT Services Indicated Yes Treatment Frequency and Continue per POC for 2 additional visits Duration These treatments will address the objective and functional deficits as defined above. The patient will be advanced safely and appropriately in order for the patient to progress towards his/her prior level of function. Additional exercises will be introduced and as well as a comprehensive home exercise program upon discharge, if needed, ?to ensure carryover of functional gains achieved in the clinic. This treatment plan has been reviewed and agreement upon by the patient.
--- NOTE | 2025-01-08 17:50 | OPREHPOC ---
Outpatient Therapy Plan of Care This is a Multidisciplinary Plan of Care that may contain components documented by all disciplines (PT, OT, and ST.) PT Problem 1 PT Problem #1 Knowledge Deficit PT Goal 1 Goal / Goal Update independent and compliant with HEP Target Visit 6 Progress Met PT Problem 2 PT Problem #2 Pain PT Goal 1 Goal / Goal Update decrease pain at worst to 2/10 or less Target Visit 12 Progress Not Met PT Problem 3 PT Problem #3 Impaired Strength PT Goal 1 Goal / Goal Update 5/5 L ankle strength Target Visit 12 Progress Not Met PT Problem 4 PT Problem #4 Impaired Safety Awareness PT Goal 1 Goal / Goal Update LEFS to display 30% or less functional deficits - not met patient to ambulate with normal gait mechanics and no boot or AD -not met patient to ambulate up and down steps with reciprocal mechanics -not met Target Visit 12 Progress Not Met PT Problem 5 PT Problem #5 Impaired Range of Motion PT Goal 1 Goal / Goal Update 10 degrees or better L ankle DF -regressed 50 degrees or better L ankle PF -regressed 30 degrees or better L ankle IV -met 10 degrees or better L ankle EV -regressed Target Visit 12 Progress Partially Met
--- NOTE | 2025-01-08 17:50 | PTOPPROG ---
Assessment and note entered by Melida Payan, PT Evaluation Information Assessment Status Progress Onset 11/20/24 Subjective Information Patient reports her left ankle is still painful and she feels there is more going on than just a fracture. She continues to have pain with walking and weight bearing activities and notes swelling by the end of the day. She plans to make a follow up with her PCP since the orthopedics pediatric physician did not want to see her again. Assessment PT Clinical Summary Destiny Worley has completed 12 skilled PT visits for L ankle pain and functional deficits from an ankle fracture. She is now approximately 9 weeks post injury. She reports increased pain over the last 2 weeks and demonstrates a regression in left ankle AROM and gait compared to last week. She demonstrates improved strength overall but remains tender with palpation to the ATFL and lateral malleolus. She reports increased pain with passive left ankle inversion and posterior drawer tests. She was advised to return to wearing her boot with weight bearing and make a follow up appointment with her physician. She will be put on hold from skilled PT. Plan of Care Interventions Hot Pack/Cold Pack,Intermittent Compression Pump, Neuro Re-education,Patient/Caregiver Education, Therapeutic Activities,Therapeutic Exercise PT Services Indicated Yes Treatment Frequency and Patient on hold until MD follow up Duration These treatments will address the objective and functional deficits as defined above. The patient will be advanced safely and appropriately in order for the patient to progress towards his/her prior level of function. Additional exercises will be introduced and as well as a comprehensive home exercise program upon discharge, if needed, ?to ensure carryover of functional gains achieved in the clinic. This treatment plan has been reviewed and agreement upon by the patient.
== END 2025-02-23 23:59 | disposition home or self-care (01) ==
LOC: CHSPT 09:00
PROVIDERS: Visit Provider Orthopaedic Surgery
DX: M25.572 Pain in left ankle and joints of left foot (principal)
CPT/HCPCS: 97016; 97110; 97112; 97161; 97530; 97750

== ENCOUNTER 2025-01-18 12:13 | Outpatient (CLI) | payer OTHER, SELFPAY ==
--- NOTE | ~2025-01-18 | MR_ITS ---
EXAM/PROCEDURE: MR ankle LT wo con HISTORY: fracture of fibula; left COMPARISON: Left ankle x-rays November 06 TECHNIQUE: Noncontrast enhanced multiplanar MRI through the left ankle performed. FINDINGS: Old avulsion fracture of the fibular tip again noted. The distal fragment appears corticated and not clearly fused. No new fracture subluxation or dislocation. 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 Small joint effusion is present. The anterior tibiofibular ligament appears slightly thickened and the talar attachment is not clearly seen. This ligament is probably torn. The posterior talofibular ligament appears intact. The calcaneofibular ligament is not seen confidently. Deltoid ligament appears intact. The flexor and peroneal tendons as well as visualized portions of the Achilles tendon and extensor tendons appear intact. Mild edematous changes present on the subcutaneous soft tissues in the lateral ankle region. No drainable fluid collection or suspicious mass. IMPRESSION: 1. Delayed, possible nonunion of distal fibular avulsion fracture. The anterior talofibular ligament appears torn. The calcaneofibular ligament is also not well-seen and may be partially torn. 2. Other findings as above. Reviewed, dictated and finalized at location A. OGRAPHIC LABORATORY SUPERVISOR IMPRESSION: 1. Delayed, possible nonunion of distal fibular avulsion fracture. The anterior talofibular ligament appears torn. The calcaneofibular ligament is also not we ll-seen and may be partially torn. 2. Other findings as above.
--- OUTSIDE RECORDS SUMMARY | 2025-01-18 12:17 | XMS_ITS | Clinical Summary ---
Author Organization [facility] Address [address] [place] [address] Care Team Providers Care Ic Designer Standard Cells Name Role Phone Vicente Leger MD Primary Care Provider Allergies No known active allergies Medications meloxicam 15 MG tablet Take 15 mg by mouth daily. 2 9 Active fluorouracil (EFUDEX) 5 % cream apply cream topically twice daily 5 Active gabapentin (NEURONTIN) 100 MG capsuleIndicat ions:Closed avulsion fracture of lateral malleolus of left fibula, initial encounter Take 1 capsule (100 mg total) by mouth 2 (two) times a day. 120 capsule 5 Active vitamin C (ASCORBIC ACID) 500 MG tablet Take 1 tablet (500 mg total) by mouth daily. 5 Active CELEBREX 200 MG capsule Take 1 capsule (200 mg total) by mouth daily. 5 Active Lidocaine (ASPERCREME LIDOCAINE) 4 % Cream cream Apply 1 application twice a day by topical route. 5 Active metroNIDAZOLE (METROCREAM) 0.75 % cream APPLY TO AFFECTED AREA TOPICALLY EVERY DAY Active doxycycline hyclate (VIBRAMYCIN) 100 MG capsule Take 1 capsule (100 mg total) by mouth. Active triamcinolone (KENALOG) 0.1 % ointment APPLY TOPICALLY 2 (TWO) TIMES A DAY NEEDED (RASH) TO THE LEFT SHOULDER Active traMADol (ULTRAM) 50 MG tabletIndicati ons:Chronic Pain Take 1 tablet (50 mg total) by mouth every 6 (six) hours as needed. Indications: Chronic Pain 30 tablet 5 Active traMADol (ULTRAM) 50 MG tablet Take 1 tablet (50 mg total) by mouth every 6 (six) hours as needed. 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 Overview (11/30/2018): Added automatically from request for surgery [id number] Thrombosed external hemorrhoids 06/07/2016 Cervical radiculopathy 04/28/2015 Fibromyalgia 03/04/2015 Bilateral hand numbness 03/03/2015 Burning sensation of feet 03/03/2015 Numbness and tingling of both legs 03/02/2015 Encounters Date Type Department Care Team Description 01/15/[address] [address] Mago Marshall, DO Medication Request (Refill Gabapentin from Johnny ACEVES) 12/25/2024 10:00 AM CDT Office Visit [address] [address] Mago Marshall, DO Fracture (LEFT Ankle - DOI: 11/06/2024) 12/25/2024 9:48 AM CDT - 12/25/2024 11:59 PM CDT Hospital Encounter [facility] [address] [place] [id number] Mago Marshall, DO Discharge Disposition: Home or Self Care (Routine Discharge) 12/25/[address] [address] Mago Marshall, DO Medication 12/25/2024 Travel 12/25/2024 Orders Only [address] [address] Mago Marshall, DO 11/27/2024 10:00 AM CDT Office Visit [address] [address] Johnny Reinoso FNP-BC Fracture (LEFT Ankle - DOI: 11/06/2024) 11/27/2024 9:48 AM CDT - 11/27/2024 11:59 PM CDT Hospital Encounter [facility] [address] [place] [address] Johnny Reinoso FNP-BC Discharge Disposition: Home or Self Care (Routine Discharge) 11/27/2024 Travel 11/14/2024 Orders Only [address] [address] Johnny Reinoso FNP-BC 11/13/2024 3:00 PM CDT Office Visit [address] [address] Johnny Reinoso FNP-BC New Patient; Leg Pain (LEFT Lower LEG DOI 11/06/2024); Ankle Pain (LEFT) 11/13/2024 2:42 PM CDT - 11/13/2024 11:59 PM CDT Hospital Encounter [facility] [address] [place] [address] Johnny Reinoso FNP-BC Discharge Disposition: Home or Self Care (Routine Discharge) 11/13/2024 Travel 11/12/2024 Orders Only [address] [address] Johnny Reinoso FNP-BC 11/08/[address] [address] Johnny Reinoso FNP-BC Appointment Request 11/08/[address] [address] Johnny Reinoso FNP-BC Appointment Request from Last 3 Months Family History Medical History Relation Comments Breast Cancer Mother Breast Cancer Paternal Aunt Relation Status Comments Mother Paternal Aunt Social History Tobacco Use Types Packs/Day Years Used Date Smoking Tobacco: Every Day Cigarettes Smokeless Tobacco: Never Tobacco Cessation:Ready to Q uit: Not Asked; Counseling Given: Not Answered Alcohol Use Standard Drinks/Week Comments No 0 (1 standard drink = 0.6 oz pur e alcohol) AUDIT-C Answer Date Recorded Frequency of Alcohol Consumption Never 2018 Average Number of Drinks Not on file 019 Frequency of Binge Drinking Not on file 11/11 Comments No Sex and Gender Information Value Date Recorded Sex Assigned at Female 03/25/2019 11:01 AM WHEAT FARMER Legal Sex Female 10:39 PM WHEAT FARMER Gender Identity Female 03/25/2019 11:01 AM WHEAT FARMER Sexual Orientation Not on file Last Filed Vital Signs Vital Sign Reading Time Taken Comments Blood Pressure 142/86 12/25/2018 5:19 PM CDT Pulse 96 12/25/2018 5:19 PM CDT Temperature 36.6 C (97.8 F) 12/25/2018 5:19 PM CDT Respiratory Rate 18 12/25/2018 5:19 PM CDT Oxygen Saturation 97% 12/25/2018 5:19 PM CDT Inhaled Oxygen Concentration - - Weight 81.6 kg (180 lb) 12/25/2024 9:47 AM CDT Height 162.6 cm (5' 4) 12/25/2024 9:47 AM CDT Body Mass Index 30.9 12/25/2024 9:47 AM CDT Plan of Treatment Health Maintenance Due Date Last Done Comments Cervical Cancer Screening Pap Smear (Age 30 to 64) Every 3 Years 1978 Colorectal Cancer Screening Colonoscopy (10 Years) 1978 Annual Physical 1981 Hepatitis C 1996 Hepatitis B Vaccines (1 of 3 - 19+ 3-dose series) 1997 Pneumococcal Vaccine: Pediatrics (0 to 5 Years) and At-Risk Patients (6 to 49 Years) (1 of 2 - PCV) 1997 Cervical Cancer Screening Pap with HPV Testing (Age 30 to 64) Every 5 Years 2008 Cervical Cancer Screening with HPV 2008 Mammogram Screening 11/15/2020 11/15/2018 COVID-19 Vaccine ( season) 2024 Influenza Adult (#1) 2024 04/01/2020, 01/23/20 14 DTaP, Tdap and Td Vaccines (7 - Td or Tdap) 08/25/2030 08/25/2020, 10/28/1993, 11/12/1983, Additional history exists Hepatitis A Vaccines Aged Out No long er eligible based [...] Procedure Name Priority Date/Time Associated Diagnosis Comments XR ANKLE LT M3V Routine 12/25/2024 9:53 AM CDT Closed avulsion fracture of lateral malleolus of left fibula with routine healing, subsequent encounter XR ANKLE LT M3V Routine 11/27/2024 10:01 AM CDT Closed avulsion fracture of lateral malleolus of left fibula, initial encounter XR ANKLE LT M3V Routine 11/13/2024 3:03 PM CDT Injury of left ankle, initial encounter XR TIBIA+FIBULA LT 2V Routine 11/13/2024 3:03 PM CDT Left leg pain MG DIAG W QUANG BILAT DIGI Routine 11/15/2018 11:06 AM CDT Breast pain from Last 3 Months or Most Recently Relevant to Health Maintenance Results * XR ANKLE LT M3V (12/25/2024 9:53 AM CDT) Only the most recent of3 resultswithin the time period is included. Anatomical Region Laterality Modality Ankle Radiographic Glo ging 12/25/2024 9:58 AM CDT Impressions 12/25/2024 10:00 AM CDT IMPRESSION: 1. Stable appearance of lateral malleolar fracture. 2. Calcaneal spurs. Ordered By: MAGO MARSHALL Interpreted By: Jaren Hdez MD, 12/25/2024 9:58 AM Narrative 12/25/2024 10:00 AM CDT [address] [place] [address] Examination: Left ankle. Exam time: 0846 hours. Clinical history: Fracture follow-up. Comparison: 11/27/2024. Technique: Three views. Findings: Minimally displaced transverse fracture through the tip of the lateral malleolus is again evident with overall stable alignment allowing for differences in projection. The overall appearance of the fracture has not appreciably changed. No new fracture is identified. Small plantar and Achilles calcaneal spurs are again noted. No other significant bone or joint abnormality is noted. Os peroneum, accessory ossicle, is incidentally noted. No acute soft tissue abnormality. Procedure Note Jaren Hdez MD - 12/25/[address] [place] [address] Examination: Left ankle. Exam time: 0846 hours. Clinical history: Fracture follow-up. Comparison: 11/27/2024. Technique: Three views. Findings: Minimally displaced transverse fracture through the tip of thelateral malleolus is again evident with overall stable alignment allowingfor differences in projection. The overall appearance of the fracture hasnot appreciably changed. No new fracture is identified. Small plantar andAchilles calcaneal spurs are again noted. No other significant bone orjoint abnormality is noted. Os peroneum, accessory ossicle, isincidentally noted. No acute soft tissue abnormality. IMPRESSION: 1. Stable appearance of lateral malleolar fracture. 2. Calcaneal spurs. Ordered By: MAGO MARSHALL Interpreted By: Jaren Hdez MD, 12/25/2024 9:58 AM us Mago Marshall DO GENERAL IMAGING Final Result * XR TIBIA+FIBULA LT 2V (11/13/2024 3:03 PM CDT) Anatomical Region Laterality Modality TibFib Radiographic Glo ging 11/18/2024 11:3 6 AM CDT Impressions 11/18/2024 11:40 AM CDT IMPRESSION: 1. Stable appearance of distal fibular fracture. 2. Calcaneal spurs. Ordered By: JOHNNY REINOSO Interpreted By: Jaren Hdez MD, 11/18/2024 11:36 AM Narrative 11/18/2024 11:40 AM CDT [address] [place] [place] [address] Examination: Left tibia and fibula and left ankle. Exam time: 1347 hours. Clinical history: Fracture follow-up. Comparison: Left ankle, 11/06/2024 ([facility]). Technique: Two views of the tibia and fibula and three views of the ankle. Findings: Minimally displaced transverse fracture through the tip of the lateral malleolus is again evident with overall stable alignment allowing for differences in projection. The appearance of the fracture has not appreciably changed. No new fracture is identified. Small plantar and Achilles calcaneal spurs are again evident. No other significant bone or joint abnormality is noted. There is persistent mild soft tissue swelling overlying the lateral malleolus. Probable phleboliths in the pretibial soft tissues on the lateral views noted. Procedure Note Jaren Hdez MD - 11/18/[address] [place] [address] Examination: Left tibia and fibula and left ankle. Exam time: 1347 hours. Clinical history: Fracture follow-up. Comparison: Left ankle, 11/06/2024 ([facility]). Technique: Two views of the tibia and fibula and three views of theankle. Findings: Minimally displaced transverse fracture through the tip of thelateral malleolus is again evident with overall stable alignment allowingfor differences in projection. The appearance of the fracture has notappreciably changed. No new fracture is identified. Small plantar andAchilles calcaneal spurs are again evident. No other significant bone orjoint abnormality is noted. There is persistent mild soft tissue swellingoverlying the lateral malleolus. Probable phleboliths in the pretibialsoft tissues on the lateral views noted. IMPRESSION: 1. Stable appearance of distal fibular fracture. 2. Calcaneal spurs. Ordered By: JOHNNY REINOSO Interpreted By: Jaren Hdez MD, 11/18/2024 11:36 AM us Johnny Reinoso RETAIL SERVICE SPECIALIST-BC GENERAL IMAGING Final Resu lt * MG DIAG W QUANG BILAT DIGI [...] Examination: Bilateral digital diagnostic mammogram with CAD. [id number] Clinical history: Chronic bilateral generalized breast discomfort. [...] posterior acoustical enhancement nor posterior acoustical shadowing. [place] appearing tissue architecture is otherwise demonstrated. No [...] Most Recently Relevant to Health Maintenance Insurance MEDICAID [facility] / [facility] MEDICAID Care Teams Ic Designer Standard Cells Relationship Specialty Start Date End Date Vicente Leger MD [address] [place] [phone] PCP - General FAMILY PRACTICE 11/06/18
--- OUTSIDE RECORDS SUMMARY | 2025-01-18 12:17 | XMS_ITS | Clinical Summary ---
Author Organization [facility] Address [address] [place] [address] Phone Care Team Providers Care Flame Brazing Machine Operator Name Role Phone Eliazar Shelton Primary Care Provider [phone] Allergies No known active allergies Medications sertraline (ZOLOFT) 50 MG Tablet Take 50 mg by mouth daily. 05/16/2019 Active fluticasone (FLONASE) 50 MCG/ACT Suspension 1 [place] by Nasal route daily. 03/16/2019 Active tiZANidine [...] Cervical Cancer Screening (CCS) 2008 HPV/Cotest 2008 Cologuard 11/24/2023 Colonoscopy 11/24/2023 Colorectal Cancer Screening 11/24/2023 Immunochemical Fecal Occult Blood 11/24/2023 Influenza Immunization (#1) 2024 01/22/2014 SARS-COV-2 Immunization ( season) 2024 Respiratory Syncytial Virus (RSV) Immunization (Adult) (1 - 1-dose 75+ series) 2053 DTaP/Tdap/Td Immunization Discontinued 1993, 11/12/1983, 11/24/1982, Additional history exists Human Papillomavirus (HPV) Immunization Aged Out No longer eligible based on patient's age to complete this topic Meningococcal Immunization (ACWY) Aged Out No longer eligible based on patient's age to complete this topic Pneumococcal Immunization Combined Aged Out No longer eligible based on patient's age to complete this topic Rotavirus Immunization Aged Out No lo nger eligible based on patient's age to complete this topic Insurance MEDICAID [employer] [facility] Care Teams Flame Brazing Machine Operator Relationship Specialty Start Date End Date Eliazar Shelton, PAC [address] [place] [address] PCP - General Family Medicine 05/30/19
--- OUTSIDE RECORDS SUMMARY | 2025-01-18 12:17 | XMS_ITS | Encounter Summary ---
Author Organization [facility] Address [address] [place] [id number] Care Team Providers Care Math Specialist Name Role Phone Vicente Leger MD Primary Care Provider Encounter Details Date Type Department Care Team (Late st Contact Info) Description 08/18/2018 Abstract SFL CONVERSION [address] [place] [address] , Generic Conversion, Social History Tobacco Use Types Packs/Day Years Used Date Smoking Tobacco: Never Assessed Comments Unknown Sex and Gender Information Value Date Recorded Sex Assigned at Female 03/25/2019 11:01 AM PLATE AND FRAME FILTER OPERATOR Legal Sex Female 10:39 PM PLATE AND FRAME FILTER OPERATOR Gender Identity Female 03/25/2019 11:01 AM PLATE AND FRAME FILTER OPERATOR Sexual Orientation Not on file documented as of this encounter Plan of Treatment Not on file documented as of this encounter Visit Diagnoses Not on filedocumented in this encounter Care Teams Math Specialist Relationship Specialty Start Date End Date Vicente eLger MD [address] [place] [phone] PCP - General FAMILY PRACTICE 11/06/18 documented as of this encounter
== END 2025-01-18 12:14 | disposition home or self-care (01) ==
LOC: CHSIMG 12:15
PROVIDERS: PCP Family Medicine; Visit Provider Family Medicine
DX: S82.402A Unspecified fracture of shaft of left fibula, initial encounter for closed fracture (principal)
CPT/HCPCS: 73721